=== PATIENT | female | born 1960 | race Caucasian/White ===

== ENCOUNTER 2017-01-27 22:22 | Inpatient (IN) | payer OTHER ==
[~2017-01-27] VITALS: Ht 160 cm; Wt 71.5 kg
[~2017-01-27 22:22] MED LIST: ADVAI250I PO; ALPR0.5T3 PO; DUONI INH; ECOT81TA2 PO; ENAL5 PO; FOLI1 PO; FURO20 PO; KCL20 PO; METO25 PO; THIA100T PO
[2017-01-27 22:29] VITALS: BP 150/79; PULSE 107; RESP 28; O2SAT 98
[2017-01-27] MEDS ORDERED: SODIUM CHLORIDE 0.9% FLUSH 10 ML FLUSH IVF PRN (22:30)
[2017-01-27 22:33] VITALS: TEMP 97.5
[2017-01-27 22:35] VITALS: O2SAT 99
[2017-01-27] MEDS: RESP: ALBUTEROL 2.5 MG/IPRATROPIUM 0.5 MG NEB (SCH) INH (22:41)
[2017-01-27 22:45] VITALS: O2SAT 99
[2017-01-27 23:00] LABS: AUTOMATED NEUTROPHIL # 4.5 TH/MM3 (1.8-7.7); BASOPHIL # 0.1 TH/MM3 (0-0.2); BASOPHIL % 0.8 % (0.0-2.0); EOSINOPHIL # 0.2 TH/MM3 (0-0.4); EOSINOPHIL % 1.2 % (0.0-4.0); HEMATOCRIT 37.5 % (35.0-46.0); LYMPH % 52.9 % (9.0-44.0); LYMPHOCYTE # 6.6 TH/MM3 (1.0-4.8); MEAN CELL VOLUME 99.3 FL (80.0-100.0); MEAN CORPUSCULAR HEMOGLOBIN 32.8 PG (27.0-34.0); NEUT % 36.1 % (16.0-70.0); PLATELET COUNT 284 TH/MM3 (150-450); RED BLOOD COUNT 3.78 MIL/MM3 (4.00-5.30); RED CELL DISTRIBUTION WIDTH 14.6 % (11.6-17.2); WHITE BLOOD COUNT 12.5 TH/MM3 (4.0-11.0)
[2017-01-27 23:03] LABS: HEMO FLAGS AUTO DIFF
--- NOTE | 2017-01-27 23:03 | RADRPT ---
EXAM DATE/TIME: 01/27/2017 22:39 [place] COMPARISON: No previous studies available for comparison. INDICATIONS : Severe shortness of breath with chest pain. MEDICAL HISTORY : Hypercholesterolemia. Chronic obstructive pulmonary disease. Cerebrovascular disease. NH ; htn SURGICAL HISTORY : Tonsillectomy. defibrillator ENCOUNTER: Initial ACUITY: 1 day PAIN SCORE: 8/10 LOCATION: Bilateral upper chest FINDINGS: Mild and fairly symmetric hazy infiltrates are seen of both lung bases with probable small pleural ef fusions. No pneumothorax. Heart size stable, upper limits of normal. Cardiac pacer/defibrillator agai n noted. CONCLUSION: Mild failure. Kip Pinto MD on January 27, 2017 at 23:01 Board Certified Radiologist. This report was verified electronically.
[2017-01-27 23:04] LABS: BLOOD GAS BASE EXCESS -5.6 mmol/L (-2-2); BLOOD GAS CARBOXYHEMOGLOBIN 3.4 % (0-4); BLOOD GAS HCO3 21 mmol/L (22-26); BLOOD GAS METHEMOGLOBIN 0.6 % (0-2); BLOOD GAS O2 HGB SATURATION 96 % (90-100); BLOOD GAS OXYGEN CONTENT 16.7 Vol % (12.0-20.0); BLOOD GAS PCO2 56 mmHg (38-42); BLOOD GAS PO2 291 mmHG (61-120); BLOOD GAS TOTAL HGB 11.9 G/DL (12.0-16.0); CRITICAL VALUE YES; OXYGEN DEVICE BiPAP; TEMP CORR TO 98.6
[2017-01-27 23:05] LABS: DRAW SITE RT RADIAL; FIO2 100 %; NUMBER OF ARTERIAL PUNCTURES 1; STAT YES; ULNAR PULSE PRESENT; VENT SETTINGS IPAP 12/EPAP+6
[2017-01-27] MEDS ORDERED: VANCOMYCIN INJ 1,250 MG in SODIUM CHLOR 0.9% 250 ML INJ 250 ML IV ONE (23:15)
[2017-01-27] MEDS ORDERED: PIPERACIL-TAZO 2.25 GM PREMIX 50 ML IV ONE (23:15)
[2017-01-27] MEDS ORDERED: ADVA250A INH (23:18)
[2017-01-27] MEDS ORDERED: FURO1TAB62 PO (23:18)
[2017-01-27] MEDS ORDERED: FOLI1TAB4 PO (23:18)
[2017-01-27] MEDS ORDERED: ALPR0.5T3 PO (23:18)
[2017-01-27] MEDS ORDERED: THIA100T PO (23:18)
[2017-01-27] MEDS ORDERED: POTA1TAB4 PO (23:18)
[2017-01-27] MEDS ORDERED: ENAL5TAB PO (23:18)
[2017-01-27] MEDS ORDERED: METO25TA3 PO (23:18)
[2017-01-27] MEDS ORDERED: ALBUAER3 INH (23:18)
[2017-01-27] MEDS ORDERED: ASPI81TA11 PO (23:18)
[2017-01-27 23:19] LABS: APTT (PATIENT) 24.5 SEC (24.3-30.1); INTERNATIONAL NORMALIZED RATIO 0.9 RATIO
[2017-01-27 23:20] LABS: ANION GAP 15 MEQ/L (5-15); AST (GOT) 44 U/L (15-37); BICARBONATE 22.8 MEQ/L (21.0-32.0); BLOOD UREA NITROGEN 14 MG/DL (7-18); CHLORIDE 93 MEQ/L (98-107); GLOMERULAR FILTRATION RATE 62 ML/MIN (>89); MAGNESIUM 4.1 MG/DL (1.5-2.5); POTASSIUM 3.2 MEQ/L (3.5-5.1); SODIUM (NA) 131 MEQ/L (136-145)
[2017-01-27 23:25] LABS: ALKALINE PHOSPHATASE 120 U/L (45-117); ALT (GPT) 29 U/L (10-53); CREATINE KINASE 104 U/L (26-192); TOTAL BILIRUBIN ADULT 0.3 MG/DL (0.2-1.0)
[2017-01-27 23:35] LABS: PLATELET ESTIMATE SMEAR NORMAL (NORMAL); PLATELET MORPHOLOGY NORMAL (NORMAL); SCAN/DIFF AUTO DIFF CONFIRMED
[2017-01-27 23:37] LABS: CKMB 1.4 NG/ML (0.5-3.6)
--- NOTE | 2017-01-27 23:47 | PD ---
HPI Chief Complaint: Respiratory Distress Time Seen by Provider: 22:30 Travel History International Travel<30 days: No Contact w/Intl Traveler<30days: No Traveled to known affect area: No History of Present Illness HPI 56-year-old female with a history of COPD CHF arrives by EMS on a CPAP machine. She's had cough cold and congestion for the past several days. EMS was activated due to dyspnea. She was found to have an O2 sat of 74% on room air at home. They applied albuterol at home and increase the O2 sat to the 80s. She received 0.3 mg of subcutaneous epinephrine en route as well as a milligrams of Lasix 0.4 mg of sublingual nitroglycerin and 2 mg of magnesium. She also received 125 mg slight Medrol. O2 sat increased to the 90s. In the ER patient is quite dyspneic limiting the initial history. PFSH Past Medical History Arthritis: Yes Asthma: No Autoimmune Disease: No Anxiety: No Depression: Yes Heart Rhythm Problems: No Cancer: No Cardiac Catheterization: Yes Cardiovascular Problems: Yes (SC, STENT, CHF, ) High Cholesterol: Yes Chest Pain: Yes Congestive Heart Failure: Yes COPD: Yes Cerebrovascular Accident: Yes Coronary Artery Disease: Yes Diabetes: No Diminished Hearing: No Endocrine: No GERD: No Glaucoma: No Genitourinary: No Headaches: No Hepatitis: No Hiatal Hernia: No Hypertension: Yes Immune Disorder: No Implanted Vascular Access Dvce: No Kidney Stones: No Musculoskeletal: Yes (BILATERAL CARPAL TUNNEL SYNDROME) Neurologic: Yes Psychiatric: No Reproductive: No Respiratory: Yes (COPD) Myocardial Infarction: Yes Renal Failure: No Seizures: No Sleep Apnea: Yes (questionable) Thyroid Disease: No Ulcer: No PNEUMOCCOCAL Vaccine (Year): 3 Menopausal: Yes Past Surgical History Abdominal Surgery: No AICD: Yes Body Medical Devices: CARDIAC STENTS Cardiac Surgery: Yes (stents x 1) Coronary Artery Bypass Graft: No Coronary Stent: Yes (x1) Ear Surgery: No Endocrine Surgery: No Eye Surgery: No Genitourinary Surgery: No Gynecologic Surgery: No Oral Surgery: No Pacemaker: Yes Thoracic Surgery: No Tonsillectomy: Yes Other Surgery: Yes (ICD PLACEMENT 2015) Social History Alcohol Use: Yes (DAILY) Tobacco Use: Yes (1 PPD) Substance Use: No Allergies-Medications (Allergen,Severity, Reaction): Coded Allergies: No Known Allergies (Verified , 01/27/17) Reported Meds & Prescriptions Reported Meds & Active Scripts Active Reported Alprazolam 0.5 Mg Tab 0.5 Mg PO BID PRN Aspirin EC (Aspirin) 81 Mg Tabdr 81 Mg PO DAILY Enalapril (Enalapril Maleate) 5 Mg Tab 5 Mg PO DAILY Advair Diskus Inh (Fluticasone-Salmeterol Inh) 250-50 Mcg/Blist Aer 1 Puff INH BID Rinse mouth after use. Folate (Folic Acid) 1 Mg Tab 1 Mg PO DAILY Lasix (Furosemide) 20 Mg Tab 20 Mg PO BID Metoprolol Tartrate 25 Mg Tab 12.5 Mg PO BID K-Tab (Potassium Chloride) 20 Meq Tab 20 Meq PO DAILY Thiamine (Thiamine HCl) 100 Mg Tab 100 Mg PO DAILY Proair Hfa 8.5 GM Inh (Albuterol Sulfate) 90 Mcg/Act Aer 2 Puff INH Q4-6H PRN 108 mcg/actuation Review of Systems Except as stated in HPI: all other systems reviewed are Neg General / Constitutional: No: Fever, Chills Cardiovascular: Positive: Tachycardia Respiratory: Positive: Cough, Shortness of Breath, Wheezing Physical Exam Narrative GENERAL: 56-year-old female marked respiratory distress SKIN: Focused skin assessment warm/dry. HEAD: Atraumatic. Normocephalic. EYES: Pupils equal and round. No scleral icterus. No injection or drainage. ENT: No nasal bleeding or discharge. Mucous membranes pink and moist. NECK: Trachea midline. No JVD. CARDIOVASCULAR: Tachycardia. Regular rhythm. RESPIRATORY: Bilateral wheezing. Tachypnea. GASTROINTESTINAL: Abdomen soft, non-tender, nondistended. Hepatic and splenic margins not palpable. MUSCULOSKELETAL: No obvious deformities. No clubbing. No cyanosis. Trace edema. NEUROLOGICAL: Awake and alert. No obvious cranial nerve deficits. Motor grossly within normal limits. Normal speech. PSYCHIATRIC: Appropriate mood and affect; insight and judgment normal. Data Data Last Documented VS Vital Signs Date Time Temp Pulse Resp B/P Pulse Ox O2 Delivery O2 Flow Rate FiO2 01/28/17 00:20 95 35 01/27/17 22:35 CPAP 01/27/17 22:33 107 28 01/27/17 22:33 97.5 01/27/17 22:29 150/79 VS reviewed Orders Complete Blood Count With Diff (01/27/17 22:30) Comprehensive Metabolic Panel (01/27/17 22:30) B-Type Natriuretic Peptide (01/27/17 22:30) Act Partial Throm Time (Ptt) (01/27/17 22:30) Prothrombin Time / Inr (Pt) (01/27/17 22:30) Magnesium (Mg) (01/27/17 22:30) Ckmb (Isoenzyme) Profile (01/27/17 22:30) Troponin I (01/27/17 22:30) Arterial Blood Gas (Abg) (01/27/17 22:30) Urinalysis - C+S If Indicated (01/27/17 22:30) Iv Access Insert/Monitor (01/27/17 22:30) Electrocardiogram (01/27/17 22:30) Ecg Monitoring (01/27/17 22:30) Oximetry (01/27/17 22:30) Oxygen Administration (01/27/17 22:30) Chest, Single Ap (01/27/17 22:30) Urinary Catheter Insert/Apply (01/27/17 22:30) Sodium Chloride 0.9% Flush (Ns Flush) (01/27/17 22:30) Albuterol-Ipratropium Neb (Duoneb Neb) (01/27/17 22:30) Resp Bipap / Cpap Non Invas Vt (01/27/17 22:30) Piperacil-Tazo 2.25 Gm Premix (Zosyn 2.2 (01/27/17 23:15) Vancomycin Inj (Vancomycin Inj) (01/27/17 23:15) Blood Culture (01/27/17 23:06) CKMB (01/27/17 22:40) CKMB% (01/27/17 22:40) Admit Order (Ed Use Only) (01/28/17 00:20) Labs Laboratory Tests Test 01/27/17 01/27/17 01/27/17 22:40 22:57 23:45 White Blood Count 12.5 TH/MM3 Red Blood Count 3.78 MIL/MM3 Hemoglobin 12.4 GM/DL Hematocrit 37.5 % Mean Corpuscular Volume 99.3 FL Mean Corpuscular Hemoglobin 32.8 PG Mean Corpuscular Hemoglobin 33.0 % Concent Red Cell Distribution Width 14.6 % Platelet Count 284 TH/MM3 Mean Platelet Volume 8.7 FL Neutrophils (%) (Auto) 36.1 % Lymphocytes (%) (Auto) 52.9 % Monocytes (%) (Auto) 9.0 % Eosinophils (%) (Auto) 1.2 % Basophils (%) (Auto) 0.8 % Neutrophils # (Auto) 4.5 TH/MM3 Lymphocytes # (Auto) 6.6 TH/MM3 Monocytes # (Auto) 1.1 TH/MM3 Eosinophils # (Auto) 0.2 TH/MM3 Basophils # (Auto) 0.1 TH/MM3 CBC Comment AUTO DIFF Differential Comment AUTO DIFF CONFIRMED Platelet Estimate NORMAL Platelet Morphology Comment NORMAL Prothrombin Time 10.0 SEC Prothromb Time International 0.9 RATIO Ratio Activated Partial 24.5 SEC Thromboplast Time Sodium Level 131 MEQ/L Potassium Level 3.2 MEQ/L Chloride Level 93 MEQ/L Carbon Dioxide Level 22.8 MEQ/L Anion Gap 15 MEQ/L Blood Urea Nitrogen 14 MG/DL Creatinine 0.93 MG/DL Estimat Glomerular Filtration 62 ML/MIN Rate Random Glucose 278 MG/DL Calcium Level 8.0 MG/DL Magnesium Level 4.1 MG/DL Total Bilirubin 0.3 MG/DL Aspartate Amino Transf 44 U/L (AST/SGOT) Alanine Aminotransferase 29 U/L (ALT/SGPT) Alkaline Phosphatase 120 U/L Total Creatine Kinase 104 U/L Creatine Kinase MB 1.4 NG/ML Troponin I LESS THAN 0.02 NG/ML B-Type Natriuretic Peptide 198 PG/ML Total Protein 7.1 GM/DL Albumin 3.5 GM/DL Blood Gas Puncture Site RT RADIAL Blood Gas Patient Temperature 98.6 Blood Gas HCO3 21 mmol/L Blood Gas Base Excess -5.6 mmol/L Blood Gas Oxygen Saturation 96 % Arterial Blood pH 7.20 Arterial Blood Partial 56 mmHg Pressure CO2 Arterial Blood Partial 291 mmHG Pressure O2 Arterial Blood Oxygen Content 16.7 Vol % Arterial Blood 3.4 % Carboxyhemoglobin Arterial Blood Methemoglobin 0.6 % Blood Gas Hemoglobin 11.9 G/DL Oxygen Delivery Device BiPAP Blood Gas Ventilator Setting IPAP 12/EPAP+6 Blood Gas Inspired Oxygen 100 % Urine Color LIGHT-YELLOW Urine Turbidity CLEAR Urine pH 5.0 Urine Specific [place] 1.005 Urine Protein NEG mg/dL Urine Glucose (UA) 70 mg/dL Urine Ketones NEG mg/dL Urine Occult Blood NEG Urine Nitrite NEG Urine Bilirubin NEG Urine Urobilinogen LESS THAN 2.0 MG/DL Urine Leukocyte Esterase NEG Urine RBC 1 /hpf Urine Squamous Epithelial <1 /hpf Cells Urine Mucus FEW /lpf Microscopic Urinalysis Comment CULT NOT INDICATED MDM Medical Decision Making Medical Screen Exam Complete: Yes Emergency Medical Condition: Yes Medical Record Reviewed: Yes Differential Diagnosis NSTEMI, unstable angina, coronary vasospasm, PE, PTX, aortic dissection, pericarditis, myocarditis, endocarditis, PNA, esophageal disease, aneurysm, musculoskeletal etiologies, anxiety, cocaine/sympathomimetic abuse Narrative Course CBC & BMP Diagram 01/27/17 22:40 AST 44 BNP 198 Tn < 0.02 EKG: Sinus, rate 110, no st elevations INR 1.0 AB./56/21 BE -5.6 PaO2 291 Last 24 hours Impressions Chest X-Ray 01/27/170 Signed Impressions: Service Date/Time: Friday, January 27, 2017 22:39 - CONCLUSION: Mild failure. Kip Pinto MD Patient reassessed at 12:20 AM and she is speaking full sentences. We will DC BiPAP. The patient will be admitted for COPD with or without a mild failure. Zosyn and vancomycin started. Blood cultures drawn. Discussed with Dr. Garces. Diagnosis Primary Impression: CHF (congestive heart failure) Qualified Code: I50.9 - Congestive heart failure, unspecified congestive heart failure chronicity, unspecified congestive heart failure type Additional Impression: COPD (chronic obstructive pulmonary disease) Qualified Code: J44.9 - Chronic obstructive pulmonary disease, unspecified COPD type Admitting Information Admitting Physician Requests: Admit Deejay Thacker MD January 27, 2017 23:47
[2017-01-27 23:58] LABS: BLOOD, URINE NEG (NEG); COMMENT (UR) CULT NOT INDICATED; CULTURE IF INDICATED CULT NOT INDICATED; GLUCOSE,URINE 70 mg/dL (NEG); KETONE, URINE NEG (NEG); MUCUS URINE FEW /lpf (OCC); NITRITE,URINE NEG (NEG); SQUAMOUS EPITHELIAL CELL URINE <1 /hpf (0-5); URINE COLOR LIGHT-YELLOW (YELLW/STRAW)
[2017-01-28] VITALS (34 sets, daily range): BP systolic 110–133; BP diastolic 63–84; PULSE 76–112; RESP 18–20; TEMP 97.5–98; O2SAT 93–98
[2017-01-28] MEDS ORDERED: HALOPERIDOL LACTATE 5 MG/ML AMP IM PRN (00:45)
[2017-01-28] MEDS ORDERED: LORazepam 2 MG TAB PO PRN (00:45)
[2017-01-28] MEDS ORDERED: ONDANSETRON HCL 4 MG/2 ML VIAL IVP PRN (00:45)
[2017-01-28] MEDS ORDERED: RESP: ALBUTEROL 2.5 MG/IPRATROPIUM 0.5 MG NEB (PRN) NEB (00:45)
[2017-01-28] MEDS ORDERED: Vancomycin Consult Pharmacy 1 EA OTHER SCH (00:45)
[2017-01-28] MEDS ORDERED: FLUMAZENIL 0.5 MG/5 ML VIAL IV PUSH PRN (00:45)
[2017-01-28] MEDS ORDERED: ACETAMINOPHEN 325 MG TAB PO PRN (00:45)
[2017-01-28] MEDS ORDERED: BISACODYL 10 MG SUPP RECTAL PRN (00:45)
[2017-01-28] MEDS ORDERED: GLUCAGON 1 MG/ML VIAL OTHER PRN (00:45)
[2017-01-28] MEDS ORDERED: DEXTROSE 50% IN WATER 50 ML VIAL(D50) IV PRN (00:45)
[2017-01-28] MEDS ORDERED: LORazepam 1 MG TAB PO PRN (00:45)
[2017-01-28] MEDS ORDERED: ALPRAZolam 0.5 MG TAB PO PRN (00:45)
[2017-01-28] MEDS ORDERED: SODIUM CHLORIDE 0.9% FLUSH 10 ML FLUSH IV FLUSH PRN (00:45)
[2017-01-28] MEDS ORDERED: LORazepam 2 MG/ML VIAL IV PUSH PRN ×4 (00:45)
[2017-01-28] MEDS ORDERED: POTASSIUM CHLORIDE 20 MEQ CONTROLLED RELEASE TAB PO ONE (01:00)
--- NOTE | 2017-01-28 01:16 | HHI.HP ---
[facility] Primary Care Physician Admission Diagnosis Resp Distress, COPD, CHF Diagnoses: (1) COPD (chronic obstructive pulmonary disease) Diagnosis: Principal (2) Hypoxia Diagnosis: Principal (3) PNA (pneumonia) Diagnosis: Principal (4) CHF (congestive heart failure) Diagnosis: Principal (5) Hypokalemia Diagnosis: Principal (6) Hyperglycemia Diagnosis: Principal (7) Alcohol abuse Diagnosis: Principal (8) Tobacco abuse Diagnosis: Principal Travel History International Travel<30 Days: No Contact w/Intl Traveler <30 Da: No Traveled to Known Affected Are: No History of Present Illness This is a 56-year-old female with a PMH of HTN, COPD, CVA, CAD, CHF (Echo w/ EF 40-45%), Alcohol Abuse and Tobacco Abuse who was brought to the ER by EMS secondary to SOB. Upon EMS arrival, pt noted to have O2 sat 74% on RA, placed on CPAP by EMS, s/p DuoNeb, Solu-Medrol and Lasix IV en route. On arrival, BP 150/79, HR 107, RR 28, O2 sat 98% on CPAP, Afebrile. WBC 12.5. J+ 3.2. BS 278. BNP 198. Trop negative. U/a negative. CXR w/ mild failure, possible underlying PNA. S/p Blood Cultures, Vanc/Zosyn in ER. Currently weaning off BIPAP. Review of Systems Except as stated in HPI: all other systems reviewed are Neg ROS: 14 point review of systems otherwise negative. Past Family Social History Past Medical History PMH: HTN, COPD, CVA, CAD, CHF (Echo 01/12/15 w/ EF 40-45%), Alcohol Abuse and Tobacco Abuse Past Surgical History PAST SURGICAL HISTORY: AICD, Cardiac Stent, Tonsillectomy Allergies: Coded Allergies: No Known Allergies (Verified , 01/27/17) Family History PAST FAMILY HISTORY: Reviewed. No h/o DM or CAD Social History PAST SOCIAL HISTORY: Drinks daily. Smokes 1ppd. Negative for drugs. Physical Exam Vital Signs Vital Signs Date Time Temp Pulse Resp B/P Pulse Ox O2 Delivery O2 Flow Rate FiO2 01/28/17 00:43 94 18 118/75 95 BiPAP 35 01/28/17 00:20 95 35 01/27/17 22:45 99 100 01/27/17 22:35 99 CPAP 01/27/17 22:35 99 CPAP 01/27/17 22:33 107 28 99 CPAP 01/27/17 22:33 97.5 01/27/17 22:29 107 28 150/79 98 Physical Exam PE: GENERAL: Middle-aged white female in no acute distress, currently on BIPAP. HEENT: PERRLA, EOMI. No scleral icterus or conjunctival pallor. No lid lag or facial droop. CARDIOVASCULAR: Regular rate and rhythm. No obvious murmurs to auscultation. No chest tenderness to palpation. RESPIRATORY: No obvious rhonchi. Occasional wheezing. Clear to auscultation. Breath sounds equal bilaterally. GASTROINTESTINAL: Abdomen soft, non-tender, nondistended. BS normal. MUSCULOSKELETAL: Extremities without clubbing, cyanosis, or edema. No obvious deformities. NEUROLOGICAL: Awake, alert and oriented x4. No focal neurologic deficits. Moving both upper and lower extremities spontaneously. Laboratory Laboratory Tests Test 01/27/17 01/27/17 01/27/17 22:40 22:57 23:45 White Blood Count 12.5 Red Blood Count 3.78 Hemoglobin 12.4 Hematocrit 37.5 Mean Corpuscular Volume 99.3 Mean Corpuscular Hemoglobin 32.8 Mean Corpuscular Hemoglobin 33.0 Concent Red Cell Distribution Width 14.6 Platelet Count 284 Mean Platelet Volume 8.7 Neutrophils (%) (Auto) 36.1 Lymphocytes (%) (Auto) 52.9 Monocytes (%) (Auto) 9.0 Eosinophils (%) (Auto) 1.2 Basophils (%) (Auto) 0.8 Neutrophils # (Auto) 4.5 Lymphocytes # (Auto) 6.6 Monocytes # (Auto) 1.1 Eosinophils # (Auto) 0.2 Basophils # (Auto) 0.1 CBC Comment AUTO DIFF Differential Comment AUTO DIFF CONFIRMED Platelet Estimate NORMAL Platelet Morphology Comment NORMAL Prothrombin Time 10.0 Prothromb Time International 0.9 Ratio Activated Partial 24.5 Thromboplast Time Sodium Level 131 Potassium Level 3.2 Chloride Level 93 Carbon Dioxide Level 22.8 Anion Gap 15 Blood Urea Nitrogen 14 Creatinine 0.93 Estimat Glomerular Filtration 62 Rate Random Glucose 278 Calcium Level 8.0 Magnesium Level 4.1 Total Bilirubin 0.3 Aspartate Amino Transf 44 (AST/SGOT) Alanine Aminotransferase 29 (ALT/SGPT) Alkaline Phosphatase 120 Total Creatine Kinase 104 Creatine Kinase MB 1.4 Troponin I LESS THAN 0.02 B-Type Natriuretic Peptide 198 Total Protein 7.1 Albumin 3.5 Blood Gas Puncture Site RT RADIAL Blood Gas Patient Temperature 98.6 Blood Gas HCO3 21 Blood Gas Base Excess -5.6 Blood Gas Oxygen Saturation 96 Arterial Blood pH 7.20 Arterial Blood Partial 56 Pressure CO2 Arterial Blood Partial 291 Pressure O2 Arterial Blood Oxygen Content 16.7 Arterial Blood 3.4 Carboxyhemoglobin Arterial Blood Methemoglobin 0.6 Blood Gas Hemoglobin 11.9 Oxygen Delivery Device BiPAP Blood Gas Ventilator Setting IPAP 12/EPAP+6 Blood Gas Inspired Oxygen 100 Urine Color LIGHT-YELLOW Urine Turbidity CLEAR Urine pH 5.0 Urine Specific [place] 1.005 Urine Protein NEG Urine Glucose (UA) 70 Urine Ketones NEG Urine Occult Blood NEG Urine Nitrite NEG Urine Bilirubin NEG Urine Urobilinogen LESS THAN 2.0 Urine Leukocyte Esterase NEG Urine RBC 1 Urine Squamous Epithelial <1 Cells Urine Mucus FEW Microscopic Urinalysis Comment CULT NOT INDICATED Date/Time Procedure Status Source Growth 01/27/17 23:45 Aerobic Blood Culture Received Blood Peripheral Pending 01/27/17 23:45 Anaerobic Blood Culture Received Blood Peripheral Pending Result Diagram: 01/27/17223901/27/172239 Assessment and Plan Problem List: (1) COPD (chronic obstructive pulmonary disease) ICD Code: J44.9 Status: Chronic (2) CHF (congestive heart failure) ICD Code: I50.9 Status: Acute (3) PNA (pneumonia) ICD Code: J18.9 Status: Acute (4) Hypoxia ICD Code: R09.02 Status: Acute (5) Hyperglycemia ICD Code: R73.9 Status: Acute (6) Hypokalemia ICD Code: E87.6 Status: Acute (7) Alcohol abuse ICD Code: F10.10 Status: Acute (8) Tobacco abuse ICD Code: Z72.0 Status: Acute Assessment and Plan A/P: 1. COPD: Chronic Respiratory Failure w/ Acute Exacerbation and associated hypoxia, O2 sat 74% upon EMS arrival, +wheezing on exam. Currently on BIPAP, wean as tolerated. S/p Solu-Medrol, DuoNeb w/ some improvement. Continue Solu- Medrol, DuoNeb q4h and q2h prn, Symbicort, Mucinex. 2. CHF: Acute on Chronic, Systolic. Echo 01/12/15 w/ EF 40-45%, h/o AICD placement. BNP 198, CXR w/ mild failure, images reviewed by me. S/p Lasix by EMS, monitor I/O, continue home diuresis. 3. PNA: +cold/congestion w/ non-productive cough, WBC 12.5, CXR w/ mild failure however possible underlying infiltrates, images reviewed by me. S/p Blood Cultures, Vanc/Zosyn in ER, will follow up cultures, continue IV Abx. 4. Hypoxia: Multifactorial-secondary to COPD, CHF and PNA. Currently on BIPAP , will wean as tolerated. 5. Hyperglycemia: No h/o DM, BS 278 on arrival, last Hgb A1c 5.1 on 01/09/15. Sliding scale w/ Accu-Cheks, repeat Hgb A1c. 6. Hypokalemia: K+ 3.2, will replace and recheck in am. 7. Alcohol Abuse: Drinks daily, on Folic Acid/Thiamine at home. Start CIWA, Seizure Precautions, MVT/Thiamine/Folate replacement. 8. Tobacco Abuse: Pt counselled. NicoDerm prn if needed. 9. DVT Prophylaxis: SCD/Teds. 10. Social work for d/c planning as needed. 11. Case discussed w/ ER physician at length. Physician Certification 2 Midnight Certification Type: Admission for Inpatient Services Order for Inpatient Services The services are ordered in accordance with Medicare regulations or non- Medicare payer requirements, as applicable. In the case of services not specified as inpatient-only, they are appropriately provided as inpatient services in accordance with the 2-midnight benchmark. Estimated LOS (days): 2 days is the estimated time the patient will need to remain in the hospital, assuming treatment plan goals are met and no additional complications. Post-Hospital Plan: Not yet determined Jemma Garces MD January 28, 2017 01:16
[2017-01-28] MEDS ORDERED: PIPERACIL-TAZO 3.375 GM PREMIX 50 ML IV SCH (05:00)
[2017-01-28] MEDS: methylPREDNISolone SOD SUCC 40 MG/1 ML VIAL IV PUSH SCH ×3 (05:50→17:51)
[2017-01-28] MEDS: PIPERACIL-TAZO 3.375 GM PREMIX 50 ML IV SCH ×3 (05:51→17:51)
[2017-01-28] MEDS: INSULIN ASPART SUPPLEMENTAL SCALE SQ SCH ×4 (06:21→20:43)
[2017-01-28 07:55] LABS: AUTOMATED NEUTROPHIL # 3.2 TH/MM3 (1.8-7.7); BASOPHIL % 0.1 % (0.0-2.0); EOSINOPHIL % 0.1 % (0.0-4.0); HEMATOCRIT 35.6 % (35.0-46.0); HEMO FLAGS DIFF FINAL; LYMPHOCYTE # 0.6 TH/MM3 (1.0-4.8); MEAN CELL VOLUME 95.9 FL (80.0-100.0); MEAN CORPUSCULAR HEMOGLOBIN 32.5 PG (27.0-34.0); MEAN CORPUSCULAR HGB CONC 33.9 % (32.0-36.0); NEUT % 81.8 % (16.0-70.0); PLATELET COUNT 179 TH/MM3 (150-450); RED BLOOD COUNT 3.71 MIL/MM3 (4.00-5.30); WHITE BLOOD COUNT 3.9 TH/MM3 (4.0-11.0)
[2017-01-28 08:13] LABS: ALKALINE PHOSPHATASE 108 U/L (45-117); ALT (GPT) 28 U/L (10-53); ANION GAP 13 MEQ/L (5-15); AST (GOT) 27 U/L (15-37); BICARBONATE 25.3 MEQ/L (21.0-32.0); BLOOD UREA NITROGEN 18 MG/DL (7-18); CHLORIDE 100 MEQ/L (98-107); GLOMERULAR FILTRATION RATE 75 ML/MIN (>89); POTASSIUM 3.7 MEQ/L (3.5-5.1); SODIUM (NA) 138 MEQ/L (136-145); TOTAL BILIRUBIN ADULT 0.4 MG/DL (0.2-1.0)
[2017-01-28] MEDS: RESP: ALBUTEROL 2.5 MG/IPRATROPIUM 0.5 MG NEB (SCH) NEB ×4 (08:29→19:37)
[2017-01-28] MEDS: MULTIVITAMINS/MINERALS THERAPEUTIC TAB PO SCH (08:55)
[2017-01-28] MEDS: ASPIRIN EC 81 MG TABEC PO SCH (08:55)
[2017-01-28] MEDS: FOLIC ACID 1 MG TAB PO SCH (08:55)
[2017-01-28] MEDS: THIAMINE HCL 100 MG TAB PO SCH (08:55)
[2017-01-28] MEDS: guaiFENesin E.R. 600 MG TAB PO SCH ×2 (08:55→20:40)
[2017-01-28] MEDS: SODIUM CHLORIDE 0.9% FLUSH 10 ML FLUSH IV FLUSH SCH ×2 (08:55→20:40)
[2017-01-28] MEDS: METOPROLOL TARTRATE 25 MG TAB PO SCH ×2 (08:56→20:40)
[2017-01-28] MEDS: FUROSEMIDE 20 MG TAB PO SCH ×2 (08:56→20:40)
[2017-01-28] MEDS: BUDESONIDE-FORMOTEROL 160/4.5 MCG INHALER INH SCH ×2 (09:22→20:45)
[2017-01-28 13:33] LABS: HEMOGLOBIN A1a 1.1 %; HEMOGLOBIN A1b 1.3 %; HEMOGLOBIN Ao 86.1 %; HEMOGLOBIN LA1C 2.4 %
--- NOTE | 2017-01-28 14:03 | HHI.PR ---
Subjective Remarks Late entry. Patient seen at ~0800 today. Still on BiPAP. Complaining of some dyspnea, but improving. No chest pain. Objective Vitals Vital Signs Date Time Temp Pulse Resp B/P Pulse Ox O2 Delivery O2 Flow Rate FiO2 01/28/17 12:00 96 01/28/17 11:45 97.7 98 19 110/64 97 01/28/17 11:45 97 Nasal Cannula 4.00 01/28/17 11:00 95 01/28/17 10:00 94 01/28/17 09:00 100 01/28/17 08:50 97 Nasal Cannula 4.00 01/28/17 08:26 95 35 01/28/17 08:15 96 Bi-Pap 35 01/28/17 08:15 96 Bi-Pap 35 01/28/17 08:15 98.0 102 19 131/81 96 01/28/17 08:00 94 01/28/17 07:00 89 01/28/17 06:43 96 Bi-Pap 35 01/28/17 06:00 90 01/28/17 05:00 84 01/28/17 04:18 85 01/28/17 04:00 84 01/28/17 03:45 95 35 01/28/17 03:19 97.5 96 128/84 93 01/28/17 03:00 85 01/28/17 02:49 84 22 116/79 96 Nasal Cannula 4 01/28/17 00:43 94 18 118/75 95 BiPAP 35 01/28/17 00:20 95 35 01/27/17 22:45 99 100 01/27/17 22:35 99 CPAP 01/27/17 22:35 99 CPAP 01/27/17 22:33 107 28 99 CPAP 01/27/17 22:33 97.5 01/27/17 22:29 107 28 150/79 98 I/O 01/27/17 01/27/17 01/27/17 01/28/17 01/28/17 01/28/17 07:00 15:00 23:00 07:00 15:00 23:00 Intake Total 590 ml Output Total 2300 ml Balance -1710 ml Intake Oral 240 ml IV Total 350 ml Output Urine Total 2300 ml Result Diagram: 01/28/1731 01/28/17730 Imaging Last Impressions Chest X-Ray 01/27/172229 Signed Impressions: Service Date/Time: Friday, January 27, 2017 22:39 - CONCLUSION: Mild failure. Kip Pinto MD Objective Remarks General: No acute distress. On BiPAP Heart: Regular rate and rhythm. No murmur. Lungs: Scattered wheeze. Abdomen: Soft, nontender, nondistended. Extremities: No lower extremity edema. Psych: Alert and oriented. Procedures None Urinary Catheter: No Vascular Central Line Catheter: No A/P Problem List: (1) CHF (congestive heart failure) ICD Code: I50.9 Status: Chronic (2) PNA (pneumonia) ICD Code: J18.9 Status: Acute (3) Hypoxia ICD Code: R09.02 Status: Acute (4) Hyperglycemia ICD Code: R73.9 Status: Acute (5) Hypokalemia ICD Code: E87.6 Status: Acute (6) Alcohol abuse ICD Code: F10.10 Status: Acute (7) Tobacco abuse ICD Code: Z72.0 Status: Acute (8) COPD exacerbation ICD Code: J44.1 Status: Acute Assessment and Plan 1. COPD, chronic respiratory failure with acute exacerbation: Has been requiring BiPAP. Wean off as tolerated. States she is not on home oxygen. Continue steroids, bronchodilators. 2. Acute exacerbation of chronic systolic congestive heart failure: Echocardiogram 2 years ago showed ejection fraction 40-45%. Patient has AICD in place. Chest x-ray shows findings consistent with mild CHF. Continue diuresis. Monitor intake/output. 3. Pneumonia: Continue antibiotics. Follow cultures. 4. Hypoxia: Multifactorial. Secondary to COPD, CHF, pneumonia. 5. Hyperglycemia: Patient denies history of diabetes. Repeat hemoglobin A1c. Monitor Accu-Cheks and cover with sliding scale insulin. 6. Hypokalemia: Supplement potassium and monitor labs. 7. Alcohol abuse: Continue full gas, thiamine, multivitamin. [place] protocol. Seizure/withdrawal precautions. 8. Tobacco abuse: Counseled quit smoking. 9. DVT prophylaxis: SCDs, E[facility]. Problem Qualifiers (1) CHF (congestive heart failure): Qualified Code: I50.23 - Acute on chronic systolic congestive heart failure Ney Rey MD January 28, 2017 14:03
--- NOTE | 2017-01-28 16:11 | EKG ---
Date Performed: 01/27/2017 Time Performed: 22:39:42 PTAGE: 56 years EKG: SINUS TACHYCARDIA LOW QRS VOLTAGE IN PRECORDIAL LEADS POSSIBLE RIGHT VENTRICULAR CONDUCTION DELAY ABNORMAL RHYTHM ECG PREVIOUS TRACING : 08/03/2015 09.16 Compared to prior tracing no significant change DOCTOR: Ellen Hi Interpretating Date/Time 01/28/2017 16:09:49
[2017-01-28] MEDS: VANCOMYCIN INJ 1,250 MG in SODIUM CHLOR 0.9% 250 ML INJ 250 ML IV SCH (17:52)
[2017-01-28] MEDS ORDERED: NITROGLYCERIN 0.4 MG SL 25 TABS/BTL SL PRN (22:45)
[2017-01-28 23:47] LABS: CREATINE KINASE 51 U/L (26-192)
[2017-01-29] VITALS (30 sets, daily range): BP systolic 106–140; BP diastolic 72–84; PULSE 77–104; RESP 15–22; TEMP 97.5–98.2; O2SAT 94–98
[2017-01-29] MEDS: methylPREDNISolone SOD SUCC 40 MG/1 ML VIAL IV PUSH SCH ×5 (00:20→23:32)
[2017-01-29] MEDS: PIPERACIL-TAZO 3.375 GM PREMIX 50 ML IV SCH ×4 (00:20→23:32)
[2017-01-29] MEDS: INSULIN ASPART SUPPLEMENTAL SCALE SQ SCH ×4 (06:30→20:49)
[2017-01-29] MEDS: RESP: ALBUTEROL 2.5 MG/IPRATROPIUM 0.5 MG NEB (SCH) NEB ×4 (07:41→20:42)
--- NOTE | 2017-01-29 08:29 | HHI.PR ---
Subjective Remarks Follow up chest pain, dyspnea. Patient has been having intermittent chest pressure that starts on the left side and radiates to the right chest. She gets tachycardia and dyspnea with these episodes. She states that she occasionally has similar episodes at home and takes Xanax. She sees Dr. Mcghee for cardiology and Dr. Grubbs for pulmonology. Objective Vitals Vital Signs Date Time Temp Pulse Resp B/P Pulse Ox O2 Delivery O2 Flow Rate FiO2 01/29/17 06:23 94 01/29/17 05:34 94 35 01/29/17 05:00 98 01/29/17 04:34 85 01/29/17 03:40 103 01/29/17 03:25 94 Bi-Pap 35 01/29/17 03:25 97.5 98 15 113/73 94 01/29/17 02:16 87 01/29/17 01:09 94 01/29/17 00:37 101 01/28/17 23:10 98 01/28/17 23:10 98.0 103 18 129/73 98 01/28/17 23:10 98 Bi-Pap 35 01/28/17 22:33 98 35 01/28/17 22:20 98.0 110 20 124/63 93 01/28/17 22:00 106 01/28/17 21:00 112 01/28/17 20:17 97.9 103 18 129/73 98 01/28/17 20:17 106 01/28/17 20:17 98 Nasal Cannula 3.00 01/28/17 19:00 104 01/28/17 18:00 102 01/28/17 17:00 106 01/28/17 16:08 110 01/28/17 16:00 110 01/28/17 15:21 97.7 105 19 133/80 97 01/28/17 15:21 97 Nasal Cannula 4.00 01/28/17 15:00 102 01/28/17 14:00 104 01/28/17 13:00 106 01/28/17 12:00 96 01/28/17 11:45 97.7 98 19 110/64 97 01/28/17 11:45 97 Nasal Cannula 4.00 01/28/17 11:00 95 01/28/17 10:00 94 01/28/17 09:00 100 01/28/17 08:50 97 Nasal Cannula 4.00 01/28/17 08:26 95 35 01/28/17 08:15 96 Bi-Pap 35 01/28/17 08:15 96 Bi-Pap 35 01/28/17 08:15 98.0 102 19 131/81 96 I/O 01/28/17 01/28/17 01/28/17 01/29/17 01/29/17 01/29/17 07:00 15:00 23:00 07:00 15:00 23:00 Intake Total 590 ml 770 ml 1338 ml Output Total 2300 ml 550 ml 1300 ml Balance -1710 ml 220 ml 38 ml Intake Oral 240 ml 720 ml 955 ml IV Total 350 ml 50 ml 383 ml Output Urine Total 2300 ml 550 ml 1300 ml Result Diagram: 01/28/17 0731 01/28/17 0731 Imaging Last Impressions Chest X-Ray 01/27/172229 Signed Impressions: Service Date/Time: Friday, January 27, 2017 22:39 - CONCLUSION: Mild failure. Kip Pinto MD Objective Remarks General: No acute distress. Heart: Regular rate and rhythm. No murmur. Lungs: Scattered rhonchi. Abdomen: Soft, nontender, nondistended. Extremities: No lower extremity edema. SCDs. Psych: Alert and oriented. Procedures None Urinary Catheter: No Vascular Central Line Catheter: No A/P Problem List: (1) CHF (congestive heart failure) ICD Code: I50.9 Status: Chronic (2) PNA (pneumonia) ICD Code: J18.9 Status: Acute (3) Hypoxia ICD Code: R09.02 Status: Acute (4) Hyperglycemia ICD Code: R73.9 Status: Acute (5) Hypokalemia ICD Code: E87.6 Status: Acute (6) Alcohol abuse ICD Code: F10.10 Status: Acute (7) Tobacco abuse ICD Code: Z72.0 Status: Acute (8) COPD exacerbation ICD Code: J44.1 Status: Acute Assessment and Plan 1. COPD, chronic respiratory failure with acute exacerbation: Has been requiring BiPAP. Wean off as tolerated. States she is not on home oxygen. Continue steroids, bronchodilators. Consult patient's orthotics prosthetics technician. 2. Acute exacerbation of chronic systolic congestive heart failure: Echocardiogram 2 years ago showed ejection fraction 40-45%. Patient has AICD in place. Chest x-ray shows findings consistent with mild CHF. Continue diuresis. Monitor intake/output. Check 2D echo. Consult cardiology. 3. Pneumonia: Continue antibiotics. Follow cultures. 4. Hypoxia: Multifactorial. Secondary to COPD, CHF, pneumonia. 5. Hyperglycemia: Patient denies history of diabetes. Repeat hemoglobin A1c. Monitor Accu-Cheks and cover with sliding scale insulin. 6. Hypokalemia: Supplement potassium and monitor labs. 7. Alcohol abuse: Continue full gas, thiamine, multivitamin. [place] protocol. Seizure/withdrawal precautions. 8. Tobacco abuse: Counseled quit smoking. 9. DVT prophylaxis: ELDER Tracey. 10. Sleep apnea: Uses CPAP at home. On BiPAP at night as inpatient. 11. Chest pain: Patient having intermittent chest pressure. Possibly anxiety induced, but patient has cardiac history. Cardiac enzymes negative so far. Consult cardiology. Problem Qualifiers (1) CHF (congestive heart failure): Qualified Code: I50.23 - Acute on chronic systolic congestive heart failure Ney Rey MD January 29, 2017 08:29
[2017-01-29] MEDS: guaiFENesin E.R. 600 MG TAB PO SCH ×2 (08:51→20:49)
[2017-01-29] MEDS: BUDESONIDE-FORMOTEROL 160/4.5 MCG INHALER INH SCH ×2 (08:51→20:50)
[2017-01-29] MEDS: FUROSEMIDE 20 MG TAB PO SCH ×2 (08:51→20:49)
[2017-01-29] MEDS: THIAMINE HCL 100 MG TAB PO SCH (08:51)
[2017-01-29] MEDS: FOLIC ACID 1 MG TAB PO SCH (08:51)
[2017-01-29] MEDS: ASPIRIN EC 81 MG TABEC PO SCH (08:51)
[2017-01-29] MEDS: METOPROLOL TARTRATE 25 MG TAB PO SCH ×2 (08:51→20:49)
[2017-01-29] MEDS: MULTIVITAMINS/MINERALS THERAPEUTIC TAB PO SCH (08:51)
[2017-01-29] MEDS: SODIUM CHLORIDE 0.9% FLUSH 10 ML FLUSH IV FLUSH SCH ×2 (08:52→20:51)
--- NOTE | 2017-01-29 09:26 | MB ---
cc: BEN MATTA MD DATE OF CONSULTATION: 01/29/2017 REASON FOR CONSULTATION CHF. HISTORY OF PRESENT ILLNESS Ms. Yue Greenberg is a 56-year-old female who has a history of PR with a circumflex stent in 2011 in EF of 20%. She subsequently in 2014 underwent catheterization which showed widely patent coronaries and stent. She subsequently underwent Biotronik ICD implantation. Of note, she does follow with Dr. Mcghee. The patient more recently presented with shortness of breath. She was diagnosed with COPD and CHF. She reports about a 4 pound weight gain over the last month. PAST MEDICAL HISTORY Past medical history is significant for: 1. Hypertension. 2. Myocardial infarction. 3. ICD. 4. CHF. 5. COPD. 6. CVA. 7. Alcohol and tobacco abuse. ALLERGIES NO KNOWN DRUG ALLERGIES. CURRENT MEDICATIONS Per the record. FAMILY HISTORY Negative for CAD. SOCIAL HISTORY The patient does continue to smoke. REVIEW OF SYSTEMS Except what is mentioned in the HPI, all 12 systems are negative. PHYSICAL EXAMINATION VITAL SIGNS: 97.5, 98, 15, 113/73. GENERAL: She is a well-appearing female who is in no apparent distress. NECK: Her neck is free from JVD. LUNGS: Have some scattered wheezing. CARDIOVASCULAR: Normal S1-S2. There is a 2/6 systolic murmur. No rubs or gallops appreciated. ABDOMEN: The abdomen is soft. EXTREMITIES: Extremities are free from edema. IMAGING STUDIES Chest x-ray is significant for mild failure. LAB VALUES Show serial troponins of less than 0.02. Telemetry - shows a 24 beat of AIVR. IMPRESSION CHF - the patient does appear to have an acute on chronic systolic failure. We will request an echo for more recent EF. At this point I do agree with continuing Lasix and metoprolol. I would add low dose NEIDA inhibitor given her comorbid conditions. Chest pain - the patient does have a history of CAD and had some chest discomfort with AIVR/slow VT on the device. At this point I would continue with medical management in light of her clean coronaries two years ago and current diagnosis also of pneumonia. Pneumonia - COPD - this will be managed by the primary team. Eddie Puente/TLL /8:54 AM /9:17 AM
[2017-01-29] MEDS ORDERED: INFLUENZA VIRUS VACCINE (QUADRIVALENT) 0.5 ML SYR IM ONE (10:00)
[2017-01-29] MEDS: LISINOPRIL 5 MG TAB PO SCH (10:17)
[2017-01-29] MEDS: ATORVASTATIN 20 MG TAB PO SCH (10:17)
--- NOTE | 2017-01-29 13:22 | EC ---
Study Study Date:01/29/2017 STUDY CONCLUSIONS SUMMARY - Left ventricle: The cavity size was normal. Wall thickness was normal. Systolic function was severely reduced. The estimated ejection fraction was in the range of 25% to 30%. Diffuse hypokinesis. - Aortic valve: Valve area: 2.22cm^2 (Vmax). - Left atrium: The atrium was mildly dilated. If LV function is below 40, please consider prescribing an ACEI or ARB or document rationale for non-use. PROCEDURE DATA STUDY STATUS: Elective. Procedure: Transthoracic echocardiography. Image quality was fair. Scanning was performed from the parasternal, apical, and subcostal acoustic windows. Study completion: The patient tolerated the procedure well. Transthoracic echocardiography. M-mode, complete 2D, complete spectral Doppler, and color Doppler. Height: Height: 63in. Weight: Weight: 158.7lb. Body mass index: BMI: 28.2kg/m^2. Body surface area: BSA: 1.75m^2. Patient status: Inpatient. CARDIAC ANATOMY LEFT VENTRICLE: The cavity size was normal. Wall thickness was normal. Systolic function was severely reduced. The estimated ejection fraction was in the range of 25% to 30%. Diffuse hypokinesis. AORTIC VALVE: Trileaflet; normal thickness leaflets. Doppler: Transvalvular velocity was within the normal range. There was no stenosis. No regurgitation. Valve area: 2.22cm^2 (Vmax). Indexed valve area: 1.27cm^2/m^2 (Vmax). Peak gradient: 10mm Hg (S). AORTA: Aortic root: The aortic root was normal in size. MITRAL VALVE: Structurally normal valve. Doppler: Transvalvular velocity was within the normal range. There was no evidence for stenosis. No regurgitation. LEFT ATRIUM: The atrium was mildly dilated. RIGHT VENTRICLE: The cavity size was normal. Wall thickness was normal. PULMONIC VALVE: Doppler: Transvalvular velocity was within the normal range. There was no evidence for stenosis. No regurgitation. TRICUSPID VALVE: Structurally normal valve. Doppler: Transvalvular velocity was within the normal range. No regurgitation. PULMONARY ARTERY: The main pulmonary artery was normal-sized. Systolic pressure was within the normal range. RIGHT ATRIUM: The atrium was normal in size. PERICARDIUM: There was no pericardial effusion. SYSTEMIC VEINS: Inferior vena cava: The vessel was normal in size. Patient weight: 158.7lb _Ejection fraction:_ 65-75% _Fractional shortening:_ 32% up to 5Kg 5-11.5Kg 11.6-22.9Kg 23-45Kg 45-57Kg Aortic Root 7-13 <17 13-22 17-27 17-27 LA diam 6-13 <23 24-38 33-47 37-40 RVID 10-17 7-15 7-15 7-18 8-17 LVIDd 12-22 <32 24-38 33-47 37-40 LVPW 2-4 3-6 5-7 6-8 7-8 IVS 2-4 3-6 5-7 6-8 7-8 BASIC MEASUREMENTS ADULT NORMAL Left ventricle LV internal dimension, ED, chordal *66 mm 43-52 level, PLAX LV internal dimension, ES, chordal *58.6 mm 23-38 level, PLAX Fractional shortening, chordal level, *11 % >29 PLAX LV posterior wall thickness, ED 9.01 mm IVS/LVPW ratio, ED 1.12 <1.3 Volume, ED, MOD, 1-plane 160 ml Volume, ES, MOD, 1-plane 117 ml Ejection fraction, MOD, 1-plane 27 % Stroke volume, MOD, 1-plane 43 ml Volume index, ED, MOD, 1-plane 91 ml/m^2 Volume index, ES, MOD, 1-plane 67 ml/m^2 Stroke index, MOD, 1-plane 24.6 ml/m^2 Ventricular septum Septal thickness, ED 10.1 mm Aortic valve Leaflet separation 18 mm 15-26 Left atrium Anterior-posterior dimension 48 mm Anterior-posterior dimension index *2.74 cm/m^2 <2.2 Right ventricle RV internal dimension, ED, PLAX 21.4 mm 19-38 BASIC MEASUREMENTS ADULT NORMAL Aortic valve Leaflet separation 18 mm 15-26 Aorta Root diameter, ED 25 mm 20-37 Left atrium Anterior-posterior dimension, ES *48 mm 19-40 Anterior-posterior dimension index, ES *2.74 cm/m^2 <2.2 LA/aortic root ratio 1.92 DOPPLER MEASUREMENTS ADULT NORMAL Aortic valve Peak velocity, S 160 cm/s Peak gradient, S 10 mm Hg Valve area, Vmax 2.22 cm^2 Valve area index, Vmax 1.27 cm^2/m^2 Pulmonic valve Peak velocity, S 73.8 cm/s LEGEND: Mean values are shown as u=mean value. Asterisk (*) nelson values outside specified normal range. Prepared and signed by Ellen Hi [id number]
[2017-01-29] MEDS: VANCOMYCIN INJ 1,250 MG in SODIUM CHLOR 0.9% 250 ML INJ 250 ML IV SCH (14:09)
--- NOTE | 2017-01-29 14:48 | MB ---
cc: CRUZ ARROYO M.D. DATE OF CONSULTATION: 01/29/2017. REASON FOR CONSULTATION: COPD. HISTORY OF PRESENT ILLNESS: Mrs. Greenberg is a 56-year-old female with known history of COPD admitted with increasing shortness of breath. She as well has a history of congestive heart failure. She is followed by cardiology for same. The patient's oxygen saturation upon presentation was in the 70s. The patient is receiving nebulized albuterol at home. Chest x-ray revealed evidence of mild congestive change. She denies history of fever, chills, hemoptysis, TB or previous industrial exposure and a recent cardiac evaluation was without significant coronary artery disease. Ejection fraction is estimated at 20%. PAST MEDICAL HISTORY: 1. Congestive heart failure. 2. COPD. 3. Previous CVA. 4. Alcohol and tobacco abuse. ALLERGIES: NONE KNOWN TO MEDICATIONS. SOCIAL HISTORY: Continued smoking. Drinks on occasion. FAMILY HISTORY: Positive for heart disease, otherwise unremarkable. Exposure to secondhand smoke. REVIEW OF SYSTEMS: A twelve-point review of systems is as per the history of present illness and past history, otherwise negative. PHYSICAL EXAMINATION: VITAL SIGNS: Temperature 98, pulse 90, respirations 18, blood pressure 115/70. HEAD, EYES, EARS, NOSE, THROAT: Unremarkable. Eyes without icterus. NECK: No adenopathy. No thyroid enlargement. Central trachea. CHEST: Decreased breath sounds at bases. CARDIAC: PMI distant. There is a 1/6 systolic ejection murmur left sternal border. ABDOMEN: Lax. Bowel sounds audible. EXTREMITIES: Trace edema. LABORATORY DATA: White count 3.9, hemoglobin 12, hematocrit 35. Sodium 138, potassium 3.7, BUN 18, creatinine 0.7. IMAGING STUDIES: Chest x-ray: Mild congestive change. IMPRESSION: 1. Congestive heart failure. 2. COPD. 3. Hypertension. 4. History of CVA. PLAN: 1. The patient will be maintained on oxygen therapy as needed. 2. Bronchodilators given. 3. Therapy for underlying congestive heart failure by Dr. Hi who is following the patient. 4. A follow-up echocardiogram is ordered. 5. We will order baseline pulmonary function as well. I do thank you for asking me to partake in Mrs. Greenberg's care. MD CLAIRE Lerma/AYSE /2:33 PM /2:43 PM
--- NOTE | 2017-01-29 16:52 | EKG ---
Date Performed: 01/28/2017 Time Performed: 22:50:42 PTAGE: 56 years EKG: Sinus rhythm with borderline 1st degree A-V block Compared to previous tracing, the patient is no longer tachycar dic Borderline ECG NO PREVIOUS TRACING DOCTOR: Ellen Hi Interpretating Date/Time 01/29/2017 16:49:10
[2017-01-30] VITALS (23 sets, daily range): BP systolic 110–133; BP diastolic 68–80; PULSE 75–95; RESP 20; TEMP 98–98.6; O2SAT 96–99
[2017-01-30 04:58] LABS: AUTOMATED NEUTROPHIL # 6.2 TH/MM3 (1.8-7.7); HEMATOCRIT 30.7 % (35.0-46.0); HEMO FLAGS DIFF FINAL; LYMPH % 11.6 % (9.0-44.0); LYMPHOCYTE # 0.9 TH/MM3 (1.0-4.8); MEAN CELL VOLUME 97.6 FL (80.0-100.0); MEAN CORPUSCULAR HEMOGLOBIN 33.3 PG (27.0-34.0); MEAN CORPUSCULAR HGB CONC 34.1 % (32.0-36.0); MONO % 8.9 % (0.0-8.0); NEUT % 79.5 % (16.0-70.0); PLATELET COUNT 184 TH/MM3 (150-450); RED BLOOD COUNT 3.15 MIL/MM3 (4.00-5.30); RED CELL DISTRIBUTION WIDTH 14.6 % (11.6-17.2); WHITE BLOOD COUNT 7.8 TH/MM3 (4.0-11.0)
[2017-01-30] MEDS: VANCOMYCIN INJ 1,250 MG in SODIUM CHLOR 0.9% 250 ML INJ 250 ML IV SCH (05:14)
[2017-01-30] MEDS: PIPERACIL-TAZO 3.375 GM PREMIX 50 ML IV SCH ×3 (05:14→17:29)
[2017-01-30] MEDS: methylPREDNISolone SOD SUCC 40 MG/1 ML VIAL IV PUSH SCH ×3 (05:15→17:29)
[2017-01-30] MEDS ORDERED: PHARMACY ORDERED LAB ONE (05:45)
[2017-01-30] MEDS: INSULIN ASPART SUPPLEMENTAL SCALE SQ SCH ×4 (06:43→21:00)
[2017-01-30] MEDS: RESP: ALBUTEROL 2.5 MG/IPRATROPIUM 0.5 MG NEB (SCH) NEB ×4 (07:21→19:30)
[2017-01-30] MEDS: BUDESONIDE-FORMOTEROL 160/4.5 MCG INHALER INH SCH ×2 (08:19→20:40)
[2017-01-30] MEDS: SODIUM CHLORIDE 0.9% FLUSH 10 ML FLUSH IV FLUSH SCH ×2 (08:19→20:49)
[2017-01-30] MEDS: FUROSEMIDE 20 MG TAB PO SCH ×2 (08:20→20:40)
[2017-01-30] MEDS: FOLIC ACID 1 MG TAB PO SCH (08:20)
[2017-01-30] MEDS: ASPIRIN EC 81 MG TABEC PO SCH (08:20)
[2017-01-30] MEDS: MULTIVITAMINS/MINERALS THERAPEUTIC TAB PO SCH (08:20)
[2017-01-30] MEDS: LISINOPRIL 5 MG TAB PO SCH (08:21)
[2017-01-30] MEDS: THIAMINE HCL 100 MG TAB PO SCH (08:21)
[2017-01-30] MEDS: guaiFENesin E.R. 600 MG TAB PO SCH ×2 (08:21→20:40)
[2017-01-30] MEDS: METOPROLOL TARTRATE 25 MG TAB PO SCH ×2 (08:22→20:40)
[2017-01-30] MEDS: ATORVASTATIN 20 MG TAB PO SCH (08:22)
--- NOTE | 2017-01-30 08:54 | HHI.PR ---
Subjective Remarks Follow-up CHF, COPD. The patient states that she feels more swollen today. Her hands, arms, and legs are "more puffy". She feels "sore all over". She reports discomfort in the center of her chest with coughing. Objective Vitals Vital Signs Date Time Temp Pulse Resp B/P Pulse Ox O2 Delivery O2 Flow Rate FiO2 01/30/17 07:22 97 Nasal Cannula 2.00 01/30/17 07:00 85 01/30/17 07:00 85 01/30/17 06:00 78 01/30/17 05:00 77 01/30/17 04:00 88 01/30/17 03:00 84 01/30/17 03:00 98.0 88 20 110/80 97 01/30/17 03:00 97 Nasal Cannula 2.00 01/30/17 02:00 75 01/30/17 01:00 88 01/30/17 00:00 81 01/29/17 23:00 98 Nasal Cannula 2.00 01/29/17 23:00 77 01/29/17 23:00 98.2 77 20 106/74 97 01/29/17 22:00 89 01/29/17 21:00 86 01/29/17 20:42 97 Nasal Cannula 2.00 01/29/17 20:00 88 01/29/17 19:00 95 01/29/17 19:00 98.0 91 20 116/84 96 01/29/17 19:00 99 Nasal Cannula 2.00 01/29/17 17:00 88 01/29/17 16:18 Nasal Cannula 2.00 01/29/17 16:18 90 01/29/17 16:16 98.1 86 22 123/79 97 01/29/17 15:39 98 Nasal Cannula 3.00 01/29/17 14:00 102 01/29/17 13:00 84 01/29/17 12:00 94 01/29/17 11:15 98.0 86 19 115/72 98 01/29/17 11:15 98 Nasal Cannula 2.00 01/29/17 11:00 94 01/29/17 10:00 96 01/29/17 09:00 94 I/O 01/29/17 01/29/17 01/29/17 01/30/17 01/30/17 01/30/17 07:00 15:00 23:00 07:00 15:00 23:00 Intake Total 1338 ml 1420 ml Output Total 1300 ml 1000 ml 850 ml Balance 38 ml -1000 ml 570 ml Intake Oral 955 ml 600 ml IV Total 383 ml 820 ml Output Urine Total 1300 ml 1000 ml 850 ml # Bowel Movements 0 Result Diagram: 01/30/17 0344 01/29/17 1023 Imaging Last Impressions Chest X-Ray 01/27/17 2230 Signed Impressions: Service Date/Time: Friday, January 27, 2017 22:39 - CONCLUSION: Mild failure. Kip Pinto MD Objective Remarks General: No acute distress. Heart: Regular rate and rhythm. No murmur. Lungs: Scattered rhonchi. Abdomen: Soft, nontender, nondistended. Extremities: Trace bilateral lower extremity edema. SCDs. Psych: Alert and oriented. Procedures None Urinary Catheter: No Vascular Central Line Catheter: No A/P Problem List: (1) CHF (congestive heart failure) ICD Code: I50.9 Status: Chronic (2) PNA (pneumonia) ICD Code: J18.9 Status: Acute (3) Hypoxia ICD Code: R09.02 Status: Acute (4) Hyperglycemia ICD Code: R73.9 Status: Acute (5) Hypokalemia ICD Code: E87.6 Status: Acute (6) Alcohol abuse ICD Code: F10.10 Status: Acute (7) Tobacco abuse ICD Code: Z72.0 Status: Acute (8) COPD exacerbation ICD Code: J44.1 Status: Acute Assessment and Plan 1. COPD, chronic respiratory failure with acute exacerbation: Has been requiring BiPAP. Wean off as tolerated. States she is not on home oxygen. Continue steroids, bronchodilators. Consult patient's field artillery senior sergeant. 2. Acute exacerbation of chronic systolic congestive heart failure: Echocardiogram shows EF 25-30% with diffuse hypokinesis. Patient has AICD in place. Chest x-ray shows findings consistent with mild CHF. Continue diuresis. Monitor intake/output. Appreciate cardiology recommendations. Continue beta tomas, NEIDA inhibitor. 3. Questionable pneumonia: Chest x-ray shows findings consistent with heart failure. Leukocytosis has resolved. Patient has remained afebrile. She is developing acute kidney injury. Stop vancomycin. 4. Hypoxia: Multifactorial. Secondary to COPD, CHF, pneumonia. 5. Hyperglycemia: Patient denies history of diabetes. Repeat hemoglobin A1c. Monitor Accu-Cheks and cover with sliding scale insulin. 6. Hypokalemia: Supplement potassium and monitor labs. 7. Alcohol abuse: Continue folic acid, thiamine, multivitamin. CIWA protocol ordered, but patient not requiring Ativan. Seizure/withdrawal precautions. 8. Tobacco abuse: Counseled to quit smoking. 9. DVT prophylaxis: Kyung, ELDER shelton. 10. Sleep apnea: Uses CPAP at home. On BiPAP at night as inpatient. 11. Chest pain: Patient having intermittent chest pressure. Possibly anxiety induced, but patient has cardiac history. Cardiac enzymes are negative. Appreciate cardiology recommendations. 12. Acute kidney injury: Likely secondary to diuresis, vancomycin. Discontinue vancomycin. Monitor BUN and creatinine. Problem Qualifiers (1) CHF (congestive heart failure): Qualified Code: I50.23 - Acute on chronic systolic congestive heart failure Ney Rey MD January 30, 2017 08:53
[2017-01-30] MEDS: POTASSIUM CHLORIDE 20 MEQ CONTROLLED RELEASE TAB PO SCH (09:39)
--- NOTE | 2017-01-30 10:14 | PD.CARD.PN ---
Subjective Subjective Remarks Pt without CV complaints Objective Medications Current Medications Medications (Trade) Dose Ordered Sig/Justyna Route Start Time Stop Time Status Last Admin (SoluMEDROL INJ) 40 mg Q6HR IV PUSH 01/28/17 06:00 01/30/17 05:15 (Symbicort 160-4.5 Inh) 2 puff Q12HR INH 01/28/17 09:00 01/30/17 08:19 (Mucinex Er) 600 mg BID PO 01/28/17 09:00 01/30/17 08:21 (D50w (Vial) Inj) 50 ml UNSCH PRN IV 01/28/17 00:45 (Glucagon Inj) 1 mg UNSCH PRN OTHER 01/28/17 00:45 (NS Flush) 2 ml UNSCH PRN IV FLUSH 01/28/17 00:45 (NS Flush) 2 ml BID IV FLUSH 01/28/17 09:00 01/30/17 08:19 (Zofran Inj) 4 mg Q6H PRN IVP 01/28/17 00:45 (Dulcolax Supp) 10 mg DAILY PRN RECTAL 01/28/17 00:45 (Tylenol) 650 mg Q6H PRN PO 01/28/17 00:45 (Roxicodone) 10 mg Q4H PRN PO 01/28/17 00:45 (Roxicodone) 5 mg Q4H PRN PO 01/28/17 00:45 (Folate) 1 mg DAILY PO 01/28/17 09:00 02/02/17 08:59 01/30/17 08:20 (Vitamin B1) 100 mg DAILY PO 01/28/17 09:00 01/30/17 08:21 (Theragran M Tab) 1 tab DAILY PO 01/28/17 09:00 02/02/17 08:59 01/30/17 08:20 (Romazicon Inj) 0.2 mg Q1M PRN IV PUSH 01/28/17 00:45 (Ativan) 1 mg Q4H PRN PO 01/28/17 00:45 (Ativan Inj) 1 mg Q4H PRN IV PUSH 01/28/17 00:45 (Ativan) 2 mg Q2H PRN PO 01/28/17 00:45 (Ativan Inj) 2 mg Q2H PRN IV PUSH 01/28/17 00:45 (Ativan Inj) 2 mg Q1H PRN IV PUSH 01/28/17 00:45 (Ativan Inj) 2 mg Q15M PRN IV PUSH 01/28/17 00:45 (Haldol Inj) 2 mg Q15M PRN IM 01/28/17 00:45 (Xanax) 0.5 mg BID PRN PO 01/28/17 00:45 (Ecotrin Ec) 81 mg DAILY PO 01/28/17 09:00 01/30/17 08:20 (Lasix) 20 mg BID PO 01/28/17 09:00 01/30/17 08:20 Metoprolol Tartrate 12.5 mg 12.5 mg BID PO 01/28/17 09:00 01/30/17 08:22 (Zosyn 3.375 Gm Premix) 50 ml @ 100 mls/hr Q6HR IV 01/28/17 06:00 01/30/17 05:14 (Nitrostat Sl) 0.4 mg Q5M PRN SL 01/28/17 22:45 (Prinivil) 5 mg DAILY PO 01/29/17 09:00 01/30/17 08:21 (Lipitor) 20 mg DAILY PO 01/29/17 09:00 01/30/17 08:22 (KCl) 20 meq DAILY PO 01/30/17 09:30 01/30/17 09:39 Vital Signs / I&O Vital Signs Date Time Temp Pulse Resp B/P Pulse Ox O2 Delivery O2 Flow Rate FiO2 01/30/17 09:00 95 01/30/17 08:00 92 01/30/17 08:00 97 Nasal Cannula 2.00 01/30/17 08:00 98.1 94 20 120/71 97 01/30/17 07:22 97 Nasal Cannula 2.00 01/30/17 07:00 85 01/30/17 07:00 85 01/30/17 06:00 78 01/30/17 05:00 77 01/30/17 04:00 88 01/30/17 03:00 84 01/30/17 03:00 98.0 88 20 110/80 97 01/30/17 03:00 97 Nasal Cannula 2.00 01/30/17 02:00 75 01/30/17 01:00 88 01/30/17 00:00 81 01/29/17 23:00 98 Nasal Cannula 2.00 01/29/17 23:00 77 01/29/17 23:00 98.2 77 20 106/74 97 01/29/17 22:00 89 01/29/17 21:00 86 01/29/17 20:42 97 Nasal Cannula 2.00 01/29/17 20:00 88 01/29/17 19:00 95 01/29/17 19:00 98.0 91 20 116/84 96 01/29/17 19:00 99 Nasal Cannula 2.00 01/29/17 17:00 88 01/29/17 16:18 Nasal Cannula 2.00 01/29/17 16:18 90 01/29/17 16:16 98.1 86 22 123/79 97 01/29/17 15:39 98 Nasal Cannula 3.00 01/29/17 14:00 102 01/29/17 13:00 84 01/29/17 12:00 94 01/29/17 11:15 98.0 86 19 115/72 98 01/29/17 11:15 98 Nasal Cannula 2.00 01/29/17 11:00 94 I/O 01/29/17 01/29/17 01/29/17 01/30/17 01/30/17 01/30/17 07:00 15:00 23:00 07:00 15:00 23:00 Intake Total 1338 ml 1420 ml Output Total 1300 ml 1000 ml 850 ml Balance 38 ml -1000 ml 570 ml Intake Oral 955 ml 600 ml IV Total 383 ml 820 ml Output Urine Total 1300 ml 1000 ml 850 ml # Bowel Movements 0 Physical Exam GENERAL: Well developed, well nourished. No acute distress. HEENT: Jugular venous pressure is normal. CHEST: Lungs decreased and clear to auscultation bilaterally. Unlabored respiratory effort. CARDIAC: Regular rate and rhythm without S3, S4, or murmur. ABDOMEN: Soft, nontender, no hepatosplenomegaly. Bowel sounds present. EXTREMITIES: No clubbing, cyanosis, tr edema. Laboratory Laboratory Tests Test 01/29/17 01/30/17 01/30/17 10:23 03:44 04:46 Creatinine 1.31 MG/DL Estimat Glomerular Filtration 42 ML/MIN Rate White Blood Count 7.8 TH/MM3 Red Blood Count 3.15 MIL/MM3 Hemoglobin 10.5 GM/DL Hematocrit 30.7 % Mean Corpuscular Volume 97.6 FL Mean Corpuscular Hemoglobin 33.3 PG Mean Corpuscular Hemoglobin 34.1 % Concent Red Cell Distribution Width 14.6 % Platelet Count 184 TH/MM3 Mean Platelet Volume 8.9 FL Neutrophils (%) (Auto) 79.5 % Lymphocytes (%) (Auto) 11.6 % Monocytes (%) (Auto) 8.9 % Eosinophils (%) (Auto) 0.0 % Basophils (%) (Auto) 0.0 % Neutrophils # (Auto) 6.2 TH/MM3 Lymphocytes # (Auto) 0.9 TH/MM3 Monocytes # (Auto) 0.7 TH/MM3 Eosinophils # (Auto) 0.0 TH/MM3 Basophils # (Auto) 0.0 TH/MM3 CBC Comment DIFF FINAL Differential Comment Vancomycin Level Trough 23.8 MCG/ML Assessment and Plan Assessment and Plan IMPRESSION CHF - the patient does appear to have an acute on chronic systolic failure. -EF 25-30% by ECHO that is up from prior - on BB and NEIDA -continue fluid/sodium cap and lasix/potassium Chest pain - the patient does have a history of CAD and had some chest discomfort with AIVR/slow VT on the device. At this point I would continue with medical management in light of her clean coronaries two years ago and current diagnosis also of pneumonia. 01/30- no change, no further episodes Pneumonia - COPD - this will be managed by the primary team. Ellen Hi MD January 30, 2017 10:14 Ellen Hi MD January 30, 2017 10:14
--- NOTE | 2017-01-30 16:57 | HHI.PR ---
Subjective Remarks Alert up in chair no SOB at restO2 sat adequate RA Objective Vital Signs Date Time Temp Pulse Resp B/P Pulse Ox O2 Delivery O2 Flow Rate FiO2 01/30/17 16:00 85 01/30/17 15:30 98.6 94 20 124/79 97 01/30/17 15:28 98 Nasal Cannula 2.00 01/30/17 15:00 85 01/30/17 14:00 89 01/30/17 13:00 88 01/30/17 12:00 84 01/30/17 11:17 97 Nasal Cannula 2.00 01/30/17 11:17 98.4 94 20 118/68 97 01/30/17 11:00 80 01/30/17 10:00 88 01/30/17 09:00 95 01/30/17 08:00 92 01/30/17 08:00 97 Nasal Cannula 2.00 01/30/17 08:00 98.1 94 20 120/71 97 01/30/17 07:22 97 Nasal Cannula 2.00 01/30/17 07:00 85 01/30/17 07:00 85 01/30/17 06:00 78 01/30/17 05:00 77 01/30/17 04:00 88 01/30/17 03:00 84 01/30/17 03:00 98.0 88 20 110/80 97 01/30/17 03:00 97 Nasal Cannula 2.00 01/30/17 02:00 75 01/30/17 01:00 88 01/30/17 00:00 81 01/29/17 23:00 98 Nasal Cannula 2.00 01/29/17 23:00 77 01/29/17 23:00 98.2 77 20 106/74 97 01/29/17 22:00 89 01/29/17 21:00 86 01/29/17 20:42 97 Nasal Cannula 2.00 01/29/17 20:00 88 01/29/17 19:00 95 01/29/17 19:00 98.0 91 20 116/84 96 01/29/17 19:00 99 Nasal Cannula 2.00 01/29/17 17:00 88 I/O 01/29/17 01/29/17 01/29/17 01/30/17 01/30/17 01/30/17 07:00 15:00 23:00 07:00 15:00 23:00 Intake Total 1338 ml 1420 ml Output Total 1300 ml 1000 ml 850 ml Balance 38 ml -1000 ml 570 ml Intake Oral 955 ml 600 ml IV Total 383 ml 820 ml Output Urine Total 1300 ml 1000 ml 850 ml # Bowel Movements 0 Result Diagram: 01/30/17 0344 01/29/17 1023 Objective Remarks GENERAL: SKIN: Warm and dry. HEAD: Atraumatic. Normocephalic. EYES: Pupils equal and round. No scleral icterus. No injection or drainage. ENT: No nasal bleeding or discharge. Mucous membranes pink and moist. NECK: Trachea midline. No JVD. CARDIOVASCULAR: Regular rate and rhythm. RESPIRATORY: No accessory muscle use. Clear to auscultation. Breath sounds equal bilaterally. GASTROINTESTINAL: Abdomen soft, non-tender, nondistended. Hepatic and splenic margins not palpable. MUSCULOSKELETAL: Extremities without clubbing, cyanosis, or edema. No obvious deformities. NEUROLOGICAL: Awake and alert. No obvious cranial nerve deficits. Motor grossly within normal limits. Five out of 5 muscle strength in the arms and legs. Normal speech. PSYCHIATRIC: Appropriate mood and affect; insight and judgment normal. Assessment and Plan Assessment and Plan assessment Respiratory failure , resolved CHF , improved COPD , on BD therapy plan: contiue bronchodilators therapy for CHF per cardiology increase activity Humera Grubbs MD January 30, 2017 16:57
[2017-01-31] VITALS (32 sets, daily range): BP systolic 113–130; BP diastolic 66–81; PULSE 71–114; RESP 17–22; TEMP 97.7–98.3; O2SAT 93–100
[2017-01-31] MEDS: methylPREDNISolone SOD SUCC 40 MG/1 ML VIAL IV PUSH SCH ×4 (01:57→21:24)
[2017-01-31] MEDS: PIPERACIL-TAZO 3.375 GM PREMIX 50 ML IV SCH ×5 (01:57→23:55)
[2017-01-31 06:26] LABS: AUTOMATED NEUTROPHIL # 6.4 TH/MM3 (1.8-7.7); BASOPHIL % 0.1 % (0.0-2.0); HEMATOCRIT 32.9 % (35.0-46.0); HEMO FLAGS DIFF FINAL; LYMPH % 10.8 % (9.0-44.0); LYMPHOCYTE # 0.8 TH/MM3 (1.0-4.8); MEAN CELL VOLUME 98.8 FL (80.0-100.0); MEAN CORPUSCULAR HEMOGLOBIN 33.4 PG (27.0-34.0); MEAN CORPUSCULAR HGB CONC 33.8 % (32.0-36.0); MONO % 6.8 % (0.0-8.0); NEUT % 82.3 % (16.0-70.0); PLATELET COUNT 198 TH/MM3 (150-450); RED BLOOD COUNT 3.33 MIL/MM3 (4.00-5.30); RED CELL DISTRIBUTION WIDTH 14.2 % (11.6-17.2); WHITE BLOOD COUNT 7.8 TH/MM3 (4.0-11.0)
[2017-01-31 06:50] LABS: POTASSIUM 3.4 MEQ/L (3.5-5.1)
[2017-01-31] MEDS: INSULIN ASPART SUPPLEMENTAL SCALE SQ SCH ×4 (07:00→21:00)
--- NOTE | 2017-01-31 07:30 | PD.CARD.PN ---
Subjective Subjective Remarks PT without complaints Objective Medications Current Medications Medications (Trade) Dose Ordered Sig/Justyna Route Start Time Stop Time Status Last Admin (SoluMEDROL INJ) 40 mg Q6HR IV PUSH 01/28/17 06:00 01/31/17 06:00 (Symbicort 160-4.5 Inh) 2 puff Q12HR INH 01/28/17 09:00 01/30/17 20:40 (Mucinex Er) 600 mg BID PO 01/28/17 09:00 01/30/17 20:40 (D50w (Vial) Inj) 50 ml UNSCH PRN IV 01/28/17 00:45 (Glucagon Inj) 1 mg UNSCH PRN OTHER 01/28/17 00:45 (NS Flush) 2 ml UNSCH PRN IV FLUSH 01/28/17 00:45 (NS Flush) 2 ml BID IV FLUSH 01/28/17 09:00 01/30/17 20:49 (Zofran Inj) 4 mg Q6H PRN IVP 01/28/17 00:45 (Dulcolax Supp) 10 mg DAILY PRN RECTAL 01/28/17 00:45 (Tylenol) 650 mg Q6H PRN PO 01/28/17 00:45 (Roxicodone) 10 mg Q4H PRN PO 01/28/17 00:45 (Roxicodone) 5 mg Q4H PRN PO 01/28/17 00:45 (Folate) 1 mg DAILY PO 01/28/17 09:00 02/02/17 08:59 01/30/17 08:20 (Vitamin B1) 100 mg DAILY PO 01/28/17 09:00 01/30/17 08:21 (Theragran M Tab) 1 tab DAILY PO 01/28/17 09:00 02/02/17 08:59 01/30/17 08:20 (Romazicon Inj) 0.2 mg Q1M PRN IV PUSH 01/28/17 00:45 (Ativan) 1 mg Q4H PRN PO 01/28/17 00:45 (Ativan Inj) 1 mg Q4H PRN IV PUSH 01/28/17 00:45 (Ativan) 2 mg Q2H PRN PO 01/28/17 00:45 (Ativan Inj) 2 mg Q2H PRN IV PUSH 01/28/17 00:45 (Ativan Inj) 2 mg Q1H PRN IV PUSH 01/28/17 00:45 (Ativan Inj) 2 mg Q15M PRN IV PUSH 01/28/17 00:45 (Haldol Inj) 2 mg Q15M PRN IM 01/28/17 00:45 (Xanax) 0.5 mg BID PRN PO 01/28/17 00:45 (Ecotrin Ec) 81 mg DAILY PO 01/28/17 09:00 01/30/17 08:20 (Lasix) 20 mg BID PO 01/28/17 09:00 01/30/17 20:40 Metoprolol Tartrate 12.5 mg 12.5 mg BID PO 01/28/17 09:00 01/30/17 20:40 (Zosyn 3.375 Gm Premix) 50 ml @ 100 mls/hr Q6HR IV 01/28/17 06:00 01/31/17 06:00 (Nitrostat Sl) 0.4 mg Q5M PRN SL 01/28/17 22:45 (Prinivil) 5 mg DAILY PO 01/29/17 09:00 01/30/17 08:21 (Lipitor) 20 mg DAILY PO 01/29/17 09:00 01/30/17 08:22 (KCl) 20 meq DAILY PO 01/30/17 09:30 01/30/17 09:39 Vital Signs / I&O Vital Signs Date Time Temp Pulse Resp B/P Pulse Ox O2 Delivery O2 Flow Rate FiO2 01/31/17 06:00 95 01/31/17 05:00 71 01/31/17 04:16 78 01/31/17 04:00 98.3 94 22 117/79 98 01/31/17 03:53 99 Nasal Cannula 2.00 01/31/17 03:00 80 01/31/17 02:19 80 01/31/17 01:02 98 35 01/31/17 01:00 78 01/31/17 00:00 78 01/31/17 00:00 99 Nasal Cannula 2.00 01/31/17 00:00 98.0 78 20 115/66 99 01/30/17 21:35 96 35 01/30/17 20:00 99 Nasal Cannula 2.00 01/30/17 20:00 98.5 89 20 133/78 99 01/30/17 17:00 91 01/30/17 16:00 85 01/30/17 15:30 98.6 94 20 124/79 97 01/30/17 15:28 98 Nasal Cannula 2.00 01/30/17 15:00 85 01/30/17 14:00 89 01/30/17 13:00 88 01/30/17 12:00 84 01/30/17 11:17 97 Nasal Cannula 2.00 01/30/17 11:17 98.4 94 20 118/68 97 01/30/17 11:00 80 01/30/17 10:00 88 01/30/17 09:00 95 01/30/17 08:00 92 01/30/17 08:00 97 Nasal Cannula 2.00 01/30/17 08:00 98.1 94 20 120/71 97 I/O 01/30/17 01/30/17 01/30/17 01/31/17 01/31/17 01/31/17 07:00 15:00 23:00 07:00 15:00 23:00 Intake Total 1420 ml 1025 ml 480 ml Output Total 850 ml 1020 ml 900 ml Balance 570 ml 5 ml -420 ml Intake Oral 600 ml 875 ml 480 ml IV Total 820 ml 150 ml Output Urine Total 850 ml 1020 ml 900 ml # Bowel Movements 0 1 0 Physical Exam GENERAL: Well developed, well nourished. No acute distress. HEENT: Jugular venous pressure is normal. CHEST: Lungs decreased, rhonchi left base. Unlabored respiratory effort. CARDIAC: Regular rate and rhythm without S3, S4, or murmur. ABDOMEN: Soft, nontender, no hepatosplenomegaly. Bowel sounds present. EXTREMITIES: No clubbing, cyanosis, tr edema. Laboratory Laboratory Tests Test 01/31/17 04:19 White Blood Count 7.8 TH/MM3 Red Blood Count 3.33 MIL/MM3 Hemoglobin 11.1 GM/DL Hematocrit 32.9 % Mean Corpuscular Volume 98.8 FL Mean Corpuscular Hemoglobin 33.4 PG Mean Corpuscular Hemoglobin 33.8 % Concent Red Cell Distribution Width 14.2 % Platelet Count 198 TH/MM3 Mean Platelet Volume 8.8 FL Neutrophils (%) (Auto) 82.3 % Lymphocytes (%) (Auto) 10.8 % Monocytes (%) (Auto) 6.8 % Eosinophils (%) (Auto) 0.0 % Basophils (%) (Auto) 0.1 % Neutrophils # (Auto) 6.4 TH/MM3 Lymphocytes # (Auto) 0.8 TH/MM3 Monocytes # (Auto) 0.5 TH/MM3 Eosinophils # (Auto) 0.0 TH/MM3 Basophils # (Auto) 0.0 TH/MM3 CBC Comment DIFF FINAL Differential Comment Sodium Level 144 MEQ/L Potassium Level 3.4 MEQ/L Chloride Level 107 MEQ/L Carbon Dioxide Level 28.0 MEQ/L Anion Gap 9 MEQ/L Blood Urea Nitrogen 30 MG/DL Creatinine 0.87 MG/DL Estimat Glomerular Filtration 67 ML/MIN Rate Random Glucose 132 MG/DL Calcium Level 8.3 MG/DL Random Vancomycin Level 14.0 COMMENT Assessment and Plan Assessment and Plan IMPRESSION CHF - the patient does appear to have an acute on chronic systolic failure. -EF 25-30% by ECHO that is up from prior - on BB and NEIDA -continue fluid/sodium cap and lasix/potassium Chest pain - the patient does have a history of CAD and had some chest discomfort with AIVR/slow VT on the device. At this point I would continue with medical management in light of her clean coronaries two years ago and current diagnosis also of pneumonia. 01/31- no change, no further episodes Pneumonia - COPD - this will be managed by the primary team. -consider d/c om oxygen in light of her COPD and cardiomyopathy Dispo- ok for d/c from CV perspective Ellen Hi MD January 31, 2017 07:30
[2017-01-31] MEDS ORDERED: POTASSIUM CHLORIDE 20 MEQ CONTROLLED RELEASE TAB PO ONE (08:00)
--- NOTE | 2017-01-31 08:03 | HHI.PR ---
Subjective Remarks Follow up CHF, COPD. The patient reports wheezing. She states that she feels about the same as yesterday overall. Still with occasional episodes of dyspnea and chest tightness, which she attributes to anxiety. Objective Vitals Vital Signs Date Time Temp Pulse Resp B/P Pulse Ox O2 Delivery O2 Flow Rate FiO2 01/31/17 06:00 95 01/31/17 05:00 71 01/31/17 04:16 78 01/31/17 04:00 98.3 94 22 117/79 98 01/31/17 03:53 99 Nasal Cannula 2.00 01/31/17 03:00 80 01/31/17 02:19 80 01/31/17 01:02 98 35 01/31/17 01:00 78 01/31/17 00:00 78 01/31/17 00:00 99 Nasal Cannula 2.00 01/31/17 00:00 98.0 78 20 115/66 99 01/30/17 21:35 96 35 01/30/17 20:00 99 Nasal Cannula 2.00 01/30/17 20:00 98.5 89 20 133/78 99 01/30/17 17:00 91 01/30/17 16:00 85 01/30/17 15:30 98.6 94 20 124/79 97 01/30/17 15:28 98 Nasal Cannula 2.00 01/30/17 15:00 85 01/30/17 14:00 89 01/30/17 13:00 88 01/30/17 12:00 84 01/30/17 11:17 97 Nasal Cannula 2.00 01/30/17 11:17 98.4 94 20 118/68 97 01/30/17 11:00 80 01/30/17 10:00 88 01/30/17 09:00 95 01/30/17 08:00 92 01/30/17 08:00 97 Nasal Cannula 2.00 01/30/17 08:00 98.1 94 20 120/71 97 I/O 01/30/17 01/30/17 01/30/17 01/31/17 01/31/17 01/31/17 07:00 15:00 23:00 07:00 15:00 23:00 Intake Total 1420 ml 1025 ml 480 ml Output Total 850 ml 1020 ml 900 ml Balance 570 ml 5 ml -420 ml Intake Oral 600 ml 875 ml 480 ml IV Total 820 ml 150 ml Output Urine Total 850 ml 1020 ml 900 ml # Bowel Movements 0 1 0 Result Diagram: 01/31/1741801/31/17418 Imaging Last Impressions Chest X-Ray 01/27/172229 Signed Impressions: Service Date/Time: Friday, January 27, 2017 22:39 - CONCLUSION: Mild failure. Kip Pinto MD Objective Remarks General: No acute distress. Heart: Regular rate and rhythm. No murmur. Lungs: Scattered wheeze. Abdomen: Soft, nontender, nondistended. Extremities: Trace bilateral lower extremity edema. SCDs. Psych: Alert and oriented. Procedures None Urinary Catheter: No Vascular Central Line Catheter: No A/P Problem List: (1) CHF (congestive heart failure) ICD Code: I50.9 Status: Chronic (2) PNA (pneumonia) ICD Code: J18.9 Status: Acute (3) Hypoxia ICD Code: R09.02 Status: Acute (4) Hyperglycemia ICD Code: R73.9 Status: Acute (5) Hypokalemia ICD Code: E87.6 Status: Acute (6) Alcohol abuse ICD Code: F10.10 Status: Acute (7) Tobacco abuse ICD Code: Z72.0 Status: Acute (8) COPD exacerbation ICD Code: J44.1 Status: Acute Assessment and Plan 1. COPD, chronic respiratory failure with acute exacerbation: Has been requiring BiPAP. Wean off as tolerated. States she is not on home oxygen. Continue steroids, bronchodilators. Appreciate pulmonology recommendations. May require home oxygen. Check home O2 walk test. 2. Acute exacerbation of chronic systolic congestive heart failure: Echocardiogram shows EF 25-30% with diffuse hypokinesis. Patient has AICD in place. Chest x-ray shows findings consistent with mild CHF. Continue diuresis. Monitor intake/output. Appreciate cardiology recommendations. Continue low dose beta tomas, NEIDA inhibitor. Fluid restriction. 3. Questionable pneumonia: Chest x-ray shows findings consistent with heart failure. Leukocytosis has resolved. Patient has remained afebrile. Vancomycin discontinued due to acute kidney injury. 4. Hypoxia: Multifactorial. Secondary to COPD, CHF, pneumonia. 5. Hyperglycemia: Patient denies history of diabetes. Hemoglobin A1c is 5.0. Monitor Accu-Cheks and cover with sliding scale insulin. Glucose likely elevated due to steroids. 6. Hypokalemia: Supplement potassium and monitor labs. 7. Alcohol abuse: Continue folic acid, thiamine, multivitamin. CIWA protocol ordered, but patient not requiring Ativan. Seizure/withdrawal precautions. 8. Tobacco abuse: Counseled to quit smoking. 9. DVT prophylaxis: ELDER Tracey. 10. Sleep apnea: Uses CPAP at home. On BiPAP at night as inpatient. 11. Chest pain: Patient having intermittent chest pressure. Possibly anxiety induced, but patient has cardiac history. Cardiac enzymes are negative. Appreciate cardiology recommendations. 12. Acute kidney injury: Likely secondary to diuresis, vancomycin. Discontinue vancomycin. Monitor BUN and creatinine. Improving. Problem Qualifiers (1) CHF (congestive heart failure): Qualified Code: I50.23 - Acute on chronic systolic congestive heart failure Ney Rey MD January 31, 2017 08:03
[2017-01-31] MEDS: RESP: ALBUTEROL 2.5 MG/IPRATROPIUM 0.5 MG NEB (SCH) NEB ×4 (08:20→20:25)
[2017-01-31] MEDS: THIAMINE HCL 100 MG TAB PO SCH (08:35)
[2017-01-31] MEDS: ASPIRIN EC 81 MG TABEC PO SCH (08:35)
[2017-01-31] MEDS: FOLIC ACID 1 MG TAB PO SCH (08:35)
[2017-01-31] MEDS: MULTIVITAMINS/MINERALS THERAPEUTIC TAB PO SCH (08:36)
[2017-01-31] MEDS: POTASSIUM CHLORIDE 20 MEQ CONTROLLED RELEASE TAB PO SCH (08:36)
[2017-01-31] MEDS: ATORVASTATIN 20 MG TAB PO SCH (08:37)
[2017-01-31] MEDS: LISINOPRIL 5 MG TAB PO SCH (08:37)
[2017-01-31] MEDS: METOPROLOL TARTRATE 25 MG TAB PO SCH ×2 (08:37→21:24)
[2017-01-31] MEDS: guaiFENesin E.R. 600 MG TAB PO SCH ×2 (08:37→21:24)
[2017-01-31] MEDS: FUROSEMIDE 20 MG TAB PO SCH ×2 (08:38→21:24)
[2017-01-31] MEDS: SODIUM CHLORIDE 0.9% FLUSH 10 ML FLUSH IV FLUSH SCH ×2 (08:39→21:24)
[2017-01-31] MEDS: BUDESONIDE-FORMOTEROL 160/4.5 MCG INHALER INH SCH ×2 (08:39→21:23)
--- NOTE | 2017-01-31 09:11 | HHI.PR ---
Subjective Remarks Alert up in chair no SOB at restO2 sat adequate RA Objective Vital Signs Date Time Temp Pulse Resp B/P Pulse Ox O2 Delivery O2 Flow Rate FiO2 01/31/17 08:22 93 21 01/31/17 07:30 97.7 82 17 117/78 96 01/31/17 07:30 95 Nasal Cannula 1.00 01/31/17 06:00 95 01/31/17 05:00 71 01/31/17 04:16 78 01/31/17 04:00 98.3 94 22 117/79 98 01/31/17 03:53 99 Nasal Cannula 2.00 01/31/17 03:00 80 01/31/17 02:19 80 01/31/17 01:02 98 35 01/31/17 01:00 78 01/31/17 00:00 78 01/31/17 00:00 99 Nasal Cannula 2.00 01/31/17 00:00 98.0 78 20 115/66 99 01/30/17 21:35 96 35 01/30/17 20:00 99 Nasal Cannula 2.00 01/30/17 20:00 98.5 89 20 133/78 99 01/30/17 17:00 91 01/30/17 16:00 85 01/30/17 15:30 98.6 94 20 124/79 97 01/30/17 15:28 98 Nasal Cannula 2.00 01/30/17 15:00 85 01/30/17 14:00 89 01/30/17 13:00 88 01/30/17 12:00 84 01/30/17 11:17 97 Nasal Cannula 2.00 01/30/17 11:17 98.4 94 20 118/68 97 01/30/17 11:00 80 01/30/17 10:00 88 I/O 01/30/17 01/30/17 01/30/17 01/31/17 01/31/17 01/31/17 07:00 15:00 23:00 07:00 15:00 23:00 Intake Total 1420 ml 1025 ml 480 ml Output Total 850 ml 1020 ml 900 ml Balance 570 ml 5 ml -420 ml Intake Oral 600 ml 875 ml 480 ml IV Total 820 ml 150 ml Output Urine Total 850 ml 1020 ml 900 ml # Bowel Movements 0 1 0 Result Diagram: 01/31/17 0419 01/31/17 0419 Objective Remarks GENERAL: SKIN: Warm and dry. HEAD: Atraumatic. Normocephalic. EYES: Pupils equal and round. No scleral icterus. No injection or drainage. ENT: No nasal bleeding or discharge. Mucous membranes pink and moist. NECK: Trachea midline. No JVD. CARDIOVASCULAR: Regular rate and rhythm. RESPIRATORY: No accessory muscle use. Clear to auscultation. Breath sounds equal bilaterally. GASTROINTESTINAL: Abdomen soft, non-tender, nondistended. Hepatic and splenic margins not palpable. MUSCULOSKELETAL: Extremities without clubbing, cyanosis, or edema. No obvious deformities. NEUROLOGICAL: Awake and alert. No obvious cranial nerve deficits. Motor grossly within normal limits. Five out of 5 muscle strength in the arms and legs. Normal speech. PSYCHIATRIC: Appropriate mood and affect; insight and judgment normal. Assessment and Plan Assessment and Plan assessment Respiratory failure , resolved CHF , improved COPD , on BD therapy plan: contiue bronchodilators therapy for CHF per cardiology increase activity Humera Grubbs MD January 31, 2017 09:11
[2017-02-01] VITALS (31 sets, daily range): BP systolic 104–127; BP diastolic 60–85; PULSE 70–109; RESP 16–20; TEMP 97.6–98.6; O2SAT 95–100
[2017-02-01] MEDS: INSULIN ASPART SUPPLEMENTAL SCALE SQ SCH ×4 (05:59→21:00)
[2017-02-01] MEDS: methylPREDNISolone SOD SUCC 40 MG/1 ML VIAL IV PUSH SCH ×3 (06:02→20:53)
[2017-02-01] MEDS: PIPERACIL-TAZO 3.375 GM PREMIX 50 ML IV SCH ×3 (06:03→16:47)
[2017-02-01 06:43] LABS: BICARBONATE 25.2 MEQ/L (21.0-32.0); POTASSIUM 3.7 MEQ/L (3.5-5.1)
[2017-02-01] MEDS: RESP: ALBUTEROL 2.5 MG/IPRATROPIUM 0.5 MG NEB (SCH) NEB ×4 (06:43→20:05)
--- NOTE | 2017-02-01 06:44 | PD.CARD.PN ---
Subjective Subjective Remarks PT c/o SHOB Objective Medications Current Medications Medications (Trade) Dose Ordered Sig/Justyna Route Start Time Stop Time Status Last Admin (Symbicort 160-4.5 Inh) 2 puff Q12HR INH 01/28/17 09:00 01/31/17 21:23 (Mucinex Er) 600 mg BID PO 01/28/17 09:00 01/31/17 21:24 (D50w (Vial) Inj) 50 ml UNSCH PRN IV 01/28/17 00:45 (Glucagon Inj) 1 mg UNSCH PRN OTHER 01/28/17 00:45 (NS Flush) 2 ml UNSCH PRN IV FLUSH 01/28/17 00:45 01/31/17 12:00 (NS Flush) 2 ml BID IV FLUSH 01/28/17 09:00 01/31/17 21:24 (Zofran Inj) 4 mg Q6H PRN IVP 01/28/17 00:45 (Dulcolax Supp) 10 mg DAILY PRN RECTAL 01/28/17 00:45 (Tylenol) 650 mg Q6H PRN PO 01/28/17 00:45 (Roxicodone) 10 mg Q4H PRN PO 01/28/17 00:45 (Roxicodone) 5 mg Q4H PRN PO 01/28/17 00:45 (Folate) 1 mg DAILY PO 01/28/17 09:00 02/02/17 08:59 01/31/17 08:35 (Vitamin B1) 100 mg DAILY PO 01/28/17 09:00 01/31/17 08:35 (Theragran M Tab) 1 tab DAILY PO 01/28/17 09:00 02/02/17 08:59 01/31/17 08:36 (Romazicon Inj) 0.2 mg Q1M PRN IV PUSH 01/28/17 00:45 (Ativan) 1 mg Q4H PRN PO 01/28/17 00:45 (Ativan Inj) 1 mg Q4H PRN IV PUSH 01/28/17 00:45 (Ativan) 2 mg Q2H PRN PO 01/28/17 00:45 (Ativan Inj) 2 mg Q2H PRN IV PUSH 01/28/17 00:45 (Ativan Inj) 2 mg Q1H PRN IV PUSH 01/28/17 00:45 (Ativan Inj) 2 mg Q15M PRN IV PUSH 01/28/17 00:45 (Haldol Inj) 2 mg Q15M PRN IM 01/28/17 00:45 (Xanax) 0.5 mg BID PRN PO 01/28/17 00:45 (Ecotrin Ec) 81 mg DAILY PO 01/28/17 09:00 01/31/17 08:35 (Lasix) 20 mg BID PO 01/28/17 09:00 01/31/17 21:24 Metoprolol Tartrate 12.5 mg 12.5 mg BID PO 01/28/17 09:00 01/31/17 21:24 (Zosyn 3.375 Gm Premix) 50 ml @ 100 mls/hr Q6HR IV 01/28/17 06:00 02/01/17 06:03 (Nitrostat Sl) 0.4 mg Q5M PRN SL 01/28/17 22:45 (Prinivil) 5 mg DAILY PO 01/29/17 09:00 01/31/17 08:37 (Lipitor) 20 mg DAILY PO 01/29/17 09:00 01/31/17 08:37 (KCl) 20 meq DAILY PO 01/30/17 09:30 01/31/17 08:36 (SoluMEDROL INJ) 40 mg Q8HR IV PUSH 01/31/17 14:00 02/01/17 06:02 Vital Signs / I&O Vital Signs Date Time Temp Pulse Resp B/P Pulse Ox O2 Delivery O2 Flow Rate FiO2 02/01/17 06:00 70 02/01/17 05:19 78 02/01/17 04:15 100 35 02/01/17 04:00 85 02/01/17 03:00 83 02/01/17 03:00 96 Bi-Pap 02/01/17 03:00 98.5 93 16 124/85 96 02/01/17 02:00 84 02/01/17 01:00 98 02/01/17 00:00 80 01/31/17 23:36 100 35 01/31/17 23:00 100 Bi-Pap 01/31/17 23:00 78 01/31/17 23:00 98.0 81 18 115/74 100 01/31/17 22:00 86 01/31/17 21:00 86 01/31/17 20:26 97 21 01/31/17 20:00 86 01/31/17 19:00 98.3 84 18 115/68 97 01/31/17 19:00 97 Room Air 01/31/17 19:00 114 01/31/17 18:26 86 01/31/17 17:46 94 01/31/17 16:53 91 01/31/17 15:45 96 Room Air 01/31/17 15:25 98.3 80 19 113/69 96 01/31/17 15:00 79 01/31/17 14:00 80 01/31/17 13:00 96 01/31/17 12:00 82 01/31/17 11:39 96 Room Air 01/31/17 11:38 97.7 95 18 130/81 96 01/31/17 11:00 88 01/31/17 10:18 79 01/31/17 09:00 100 01/31/17 08:22 93 21 01/31/17 08:00 80 01/31/17 07:30 97.7 82 17 117/78 96 01/31/17 07:30 95 Nasal Cannula 1.00 01/31/17 07:00 85 I/O 01/31/17 01/31/17 01/31/17 02/01/17 02/01/17 02/01/17 07:00 15:00 23:00 07:00 15:00 23:00 Intake Total 480 ml 770 ml 480 ml Output Total 900 ml 1000 ml 400 ml Balance -420 ml -230 ml 80 ml Intake Oral 480 ml 720 ml 480 ml IV Total 50 ml Output Urine Total 900 ml 1000 ml 400 ml # Bowel Movements 0 1 Physical Exam GENERAL: Well developed, well nourished. No acute distress. HEENT: Jugular venous pressure is normal. CHEST: Lungs decreased, wheeze and rales left base. Unlabored respiratory effort. CARDIAC: Regular rate and rhythm without S3, S4, or murmur. ABDOMEN: Soft, nontender, no hepatosplenomegaly. Bowel sounds present. EXTREMITIES: No clubbing, cyanosis, tr edema. Assessment and Plan Assessment and Plan IMPRESSION CHF - the patient does appear to have an acute on chronic systolic failure. -EF 25-30% by ECHO that is up from prior - on BB and NEIDA -continue fluid/sodium cap and increase lasix/potassium Chest pain - the patient does have a history of CAD and had some chest discomfort with AIVR/slow VT on the device. At this point I would continue with medical management in light of her clean coronaries two years ago and current diagnosis also of pneumonia. 01/31- no change, no further episodes Pneumonia - COPD - this will be managed by the primary team. -consider d/c om oxygen in light of her COPD and cardiomyopathy Ellen Hi MD February 01, 2017 06:44
[2017-02-01] MEDS ORDERED: FUROSEMIDE 40 MG/4 ML VIAL IV PUSH ONE (06:45)
[2017-02-01] MEDS: POTASSIUM CHLORIDE 20 MEQ CONTROLLED RELEASE TAB PO SCH ×2 (08:40→20:53)
[2017-02-01] MEDS: MULTIVITAMINS/MINERALS THERAPEUTIC TAB PO SCH (08:40)
[2017-02-01] MEDS: FOLIC ACID 1 MG TAB PO SCH (08:40)
[2017-02-01] MEDS: ATORVASTATIN 20 MG TAB PO SCH (08:40)
[2017-02-01] MEDS: guaiFENesin E.R. 600 MG TAB PO SCH ×2 (08:40→20:53)
[2017-02-01] MEDS: LISINOPRIL 5 MG TAB PO SCH (08:40)
[2017-02-01] MEDS: SODIUM CHLORIDE 0.9% FLUSH 10 ML FLUSH IV FLUSH SCH ×2 (08:41→20:53)
[2017-02-01] MEDS: BUDESONIDE-FORMOTEROL 160/4.5 MCG INHALER INH SCH ×2 (08:41→20:54)
[2017-02-01] MEDS: ASPIRIN EC 81 MG TABEC PO SCH (08:41)
[2017-02-01] MEDS: METOPROLOL TARTRATE 25 MG TAB PO SCH ×2 (08:41→20:53)
[2017-02-01] MEDS: THIAMINE HCL 100 MG TAB PO SCH (08:41)
--- NOTE | 2017-02-01 09:08 | HHI.PR ---
Subjective Remarks CHF, COPD. The patient had increased shortness of breath this morning. She was noted on examination by the acid plant helper to have evidence of fluid overload. She was given IV Lasix and her oral Lasix dose was increased. She does feel a little bit better at this time. Denies chest pain except while having episodes of dyspnea. Objective Vitals Vital Signs Date Time Temp Pulse Resp B/P Pulse Ox O2 Delivery O2 Flow Rate FiO2 02/01/17 07:15 95 35 02/01/17 06:00 70 02/01/17 05:19 78 02/01/17 04:15 100 35 02/01/17 04:00 85 02/01/17 03:00 83 02/01/17 03:00 96 Bi-Pap 02/01/17 03:00 98.5 93 16 124/85 96 02/01/17 02:00 84 02/01/17 01:00 98 02/01/17 00:00 80 01/31/17 23:36 100 35 01/31/17 23:00 100 Bi-Pap 01/31/17 23:00 78 01/31/17 23:00 98.0 81 18 115/74 100 01/31/17 22:00 86 01/31/17 21:00 86 01/31/17 20:26 97 21 01/31/17 20:00 86 01/31/17 19:00 98.3 84 18 115/68 97 01/31/17 19:00 97 Room Air 01/31/17 19:00 114 01/31/17 18:26 86 01/31/17 17:46 94 01/31/17 16:53 91 01/31/17 15:45 96 Room Air 01/31/17 15:25 98.3 80 19 113/69 96 01/31/17 15:00 79 01/31/17 14:00 80 01/31/17 13:00 96 01/31/17 12:00 82 01/31/17 11:39 96 Room Air 01/31/17 11:38 97.7 95 18 130/81 96 01/31/17 11:00 88 01/31/17 10:18 79 I/O 01/31/17 01/31/17 01/31/17 02/01/17 02/01/17 02/01/17 07:00 15:00 23:00 07:00 15:00 23:00 Intake Total 480 ml 770 ml 480 ml Output Total 900 ml 1000 ml 400 ml Balance -420 ml -230 ml 80 ml Intake Oral 480 ml 720 ml 480 ml IV Total 50 ml Output Urine Total 900 ml 1000 ml 400 ml # Bowel Movements 0 1 Result Diagram: 01/31/17 0419 02/01/17 0410 Imaging Last Impressions Chest X-Ray 01/27/172229 Signed Impressions: Service Date/Time: Friday, January 27, 2017 22:39 - CONCLUSION: Mild failure. Kip Pinto MD Objective Remarks General: No acute distress. Heart: Regular rate and rhythm. No murmur. Lungs: Decreased breath sounds in both bases. Scattered rhonchi. Abdomen: Soft, nontender, nondistended. Extremities: Trace right lower extremity edema. SCDs. Psych: Alert and oriented. Procedures None Urinary Catheter: No Vascular Central Line Catheter: No A/P Problem List: (1) CHF (congestive heart failure) ICD Code: I50.9 Status: Chronic (2) PNA (pneumonia) ICD Code: J18.9 Status: Acute (3) Hypoxia ICD Code: R09.02 Status: Acute (4) Hyperglycemia ICD Code: R73.9 Status: Acute (5) Hypokalemia ICD Code: E87.6 Status: Acute (6) Alcohol abuse ICD Code: F10.10 Status: Acute (7) Tobacco abuse ICD Code: Z72.0 Status: Acute (8) COPD exacerbation ICD Code: J44.1 Status: Acute Assessment and Plan 1. COPD, chronic respiratory failure with acute exacerbation: Has been requiring BiPAP. Wean off as tolerated. States she is not on home oxygen. Continue steroids, bronchodilators. Appreciate pulmonology recommendations. Per home oxygen walk test, patient does not qualify for home oxygen. 2. Acute exacerbation of chronic systolic congestive heart failure: Echocardiogram shows EF 25-30% with diffuse hypokinesis. Patient has AICD in place. Chest x-ray shows findings consistent with mild CHF. Monitor intake/ output. Appreciate cardiology recommendations. Continue low dose beta tomas, NEIDA inhibitor. Fluid restriction. Lasix increased today. 3. Questionable pneumonia: Chest x-ray shows findings consistent with heart failure. Leukocytosis has resolved. Patient has remained afebrile. Vancomycin discontinued due to acute kidney injury. 4. Hypoxia: Multifactorial. Secondary to COPD, CHF, pneumonia. 5. Hyperglycemia: Patient denies history of diabetes. Hemoglobin A1c is 5.0. Monitor Accu-Cheks and cover with sliding scale insulin. Glucose likely elevated due to steroids. 6. Hypokalemia: Supplement potassium and monitor labs. 7. Alcohol abuse: Continue folic acid, thiamine, multivitamin. CIWA protocol ordered, but patient not requiring Ativan. Seizure/withdrawal precautions. 8. Tobacco abuse: Counseled to quit smoking. 9. DVT prophylaxis: ELDER Tracey. 10. Sleep apnea: Uses CPAP at home. On BiPAP at night as inpatient. 11. Chest pain: Patient having intermittent chest pressure. Possibly anxiety induced, but patient has cardiac history. Cardiac enzymes are negative. Appreciate cardiology recommendations. 12. Acute kidney injury: Likely secondary to diuresis, vancomycin. Discontinue vancomycin. Monitor BUN and creatinine. Improved. Discharge Planning Possible discharge home next 1-2 days pending clinical improvement. Problem Qualifiers (1) CHF (congestive heart failure): Qualified Code: I50.23 - Acute on chronic systolic congestive heart failure Ney Rey MD February 01, 2017 09:08
[2017-02-01] MEDS: FUROSEMIDE 40 MG TAB PO SCH (16:48)
--- NOTE | 2017-02-01 20:00 | RADRPT ---
EXAM DATE/TIME: 02/01/2017 19:47 [place] COMPARISON: No previous studies available for comparison. INDICATIONS : Short of breath. MEDICAL HISTORY : Hypercholesterolemia. Chronic obstructive pulmonary disease. SURGICAL HISTORY : Pacemaker. ENCOUNTER: Subsequent ACUITY: 4 - 6 days PAIN SCORE: 0/10 LOCATION: Bilateral chest FINDINGS: Cardiomegaly and pacer device again seen. There is blunting of the costophrenic angles consistent wit h small effusions versus scarring. There is no consolidation. CONCLUSION: Small effusions versus scarring. John Gilmore MD on February 01, 2017 at 19:58 Board Certified Radiologist. This report was verified electronically.
[2017-02-02] VITALS (27 sets, daily range): BP systolic 113–136; BP diastolic 71–86; PULSE 68–104; RESP 16–20; TEMP 97.6–98.4; O2SAT 92–100
[2017-02-02] MEDS: PIPERACIL-TAZO 3.375 GM PREMIX 50 ML IV SCH ×5 (00:11→23:53)
[2017-02-02] MEDS: methylPREDNISolone SOD SUCC 40 MG/1 ML VIAL IV PUSH SCH ×2 (05:49→21:15)
[2017-02-02 06:18] LABS: AUTOMATED NEUTROPHIL # 6.9 TH/MM3 (1.8-7.7); BASOPHIL % 0.1 % (0.0-2.0); EOSINOPHIL # 0.1 TH/MM3 (0-0.4); EOSINOPHIL % 0.6 % (0.0-4.0); HEMATOCRIT 33.4 % (35.0-46.0); HEMO FLAGS DIFF FINAL; LYMPH % 15.5 % (9.0-44.0); LYMPHOCYTE # 1.4 TH/MM3 (1.0-4.8); MEAN CELL VOLUME 98.7 FL (80.0-100.0); MEAN CORPUSCULAR HEMOGLOBIN 32.8 PG (27.0-34.0); MEAN CORPUSCULAR HGB CONC 33.3 % (32.0-36.0); MONO % 8.7 % (0.0-8.0); NEUT % 75.1 % (16.0-70.0); PLATELET COUNT 195 TH/MM3 (150-450); RED BLOOD COUNT 3.38 MIL/MM3 (4.00-5.30); RED CELL DISTRIBUTION WIDTH 14.2 % (11.6-17.2); WHITE BLOOD COUNT 9.1 TH/MM3 (4.0-11.0)
[2017-02-02 06:38] LABS: BICARBONATE 27.3 MEQ/L (21.0-32.0)
[2017-02-02] MEDS: INSULIN ASPART SUPPLEMENTAL SCALE SQ SCH ×4 (06:44→21:00)
[2017-02-02] MEDS: RESP: ALBUTEROL 2.5 MG/IPRATROPIUM 0.5 MG NEB (SCH) NEB ×4 (07:28→20:00)
--- NOTE | 2017-02-02 08:18 | HHI.PR ---
Subjective Remarks CHF, COPD. The patient states that she had an episode of significant dyspnea after taking off the BiPAP this morning. She was placed back on oxygen and her symptoms did improve. She does not quite feel ready to go home yet. Denies chest pain. Denies cough. Objective Vitals Vital Signs Date Time Temp Pulse Resp B/P Pulse Ox O2 Delivery O2 Flow Rate FiO2 02/02/17 08:00 97.6 88 18 113/75 94 02/02/17 07:29 92 21 02/02/17 07:00 89 02/02/17 06:00 71 02/02/17 05:00 78 02/02/17 04:40 100 35 02/02/17 04:30 68 02/02/17 03:00 100 Bi-Pap 02/02/17 03:00 98.4 82 16 116/75 100 02/02/17 03:00 72 02/02/17 02:05 69 02/02/17 01:00 76 02/02/17 00:00 74 02/01/17 23:45 99 35 02/01/17 23:00 100 Bi-Pap 02/01/17 23:00 98.6 78 16 104/60 100 02/01/17 23:00 80 02/01/17 22:00 82 02/01/17 21:00 82 02/01/17 20:06 99 02/01/17 20:00 84 02/01/17 19:00 99 Nasal Cannula 2.00 02/01/17 19:00 90 02/01/17 19:00 97.9 84 18 110/65 99 02/01/17 18:26 77 02/01/17 17:00 76 02/01/17 16:07 87 02/01/17 15:25 96 Room Air 02/01/17 15:03 97.6 84 16 122/84 96 02/01/17 15:00 81 02/01/17 14:00 84 02/01/17 13:00 78 02/01/17 12:00 78 02/01/17 11:44 96 02/01/17 11:15 98.2 84 19 118/72 95 02/01/17 11:00 77 02/01/17 11:00 95 Room Air 02/01/17 10:00 78 02/01/17 09:00 108 I/O 02/01/17 02/01/17 02/01/17 02/02/17 02/02/17 02/02/17 07:00 15:00 23:00 07:00 15:00 23:00 Intake Total 480 ml 1060 ml 410 ml Output Total 400 ml 1850 ml 900 ml Balance 80 ml -790 ml -490 ml Intake Oral 480 ml 960 ml 360 ml IV Total 100 ml 50 ml Output Urine Total 400 ml 1850 ml 900 ml # Bowel Movements 1 Result Diagram: 02/02/17 0435 02/02/17 0435 Imaging Last Impressions Chest X-Ray 02/01/17 0000 Signed Impressions: Service Date/Time: Wednesday, February 01, 2017 19:47 - CONCLUSION: Small effusions versus scarring. John Gilmore MD Objective Remarks General: No acute distress. Heart: Regular rate and rhythm. No murmur. Lungs: Mild crackles in both bases. Mild scattered wheeze. Abdomen: Soft, nontender, nondistended. Extremities: Trace right lower extremity edema. SCDs. Psych: Alert and oriented. Procedures None Urinary Catheter: No Vascular Central Line Catheter: No A/P Problem List: (1) CHF (congestive heart failure) ICD Code: I50.9 Status: Chronic (2) PNA (pneumonia) ICD Code: J18.9 Status: Acute (3) Hypoxia ICD Code: R09.02 Status: Acute (4) Hyperglycemia ICD Code: R73.9 Status: Acute (5) Hypokalemia ICD Code: E87.6 Status: Acute (6) Alcohol abuse ICD Code: F10.10 Status: Acute (7) Tobacco abuse ICD Code: Z72.0 Status: Acute (8) COPD exacerbation ICD Code: J44.1 Status: Acute Assessment and Plan 1. COPD, chronic respiratory failure with acute exacerbation: No longer requiring BiPAP except at night for sleep apnea. States she is not on home oxygen. Taper steroids. Continue bronchodilators. Appreciate pulmonology recommendations. Repeat home oxygen walk test today. 2. Acute exacerbation of chronic systolic congestive heart failure: Echocardiogram shows EF 25-30% with diffuse hypokinesis. Patient has AICD in place. Chest x-ray shows findings consistent with mild CHF. Monitor intake/ output. Appreciate cardiology recommendations. Continue low dose beta tomas, NEIDA inhibitor. Fluid restriction. Continue Lasix. 3. Questionable pneumonia: Chest x-ray shows findings consistent with heart failure. Leukocytosis has resolved. Patient has remained afebrile. Vancomycin discontinued due to acute kidney injury. 4. Hypoxia: Multifactorial. Secondary to COPD, CHF, pneumonia. 5. Hyperglycemia: Patient denies history of diabetes. Hemoglobin A1c is 5.0. Monitor Accu-Cheks and cover with sliding scale insulin. Glucose likely elevated due to steroids. 6. Hypokalemia: Improved. Continue potassium supplementation. 7. Alcohol abuse: Continue folic acid, thiamine, multivitamin. CIWA protocol ordered, but patient not requiring Ativan. Seizure/withdrawal precautions. 8. Tobacco abuse: Counseled to quit smoking. 9. DVT prophylaxis: ELDER Tracey. 10. Sleep apnea: Uses CPAP at home. On BiPAP at night as inpatient. 11. Chest pain: Patient having intermittent chest pressure. Possibly anxiety induced, but patient has cardiac history. Cardiac enzymes are negative. Appreciate cardiology recommendations. 12. Acute kidney injury: Improved. Likely secondary to diuresis, vancomycin. Discharge Planning Possible discharge home tomorrow pending clinical improvement. Problem Qualifiers (1) CHF (congestive heart failure): Qualified Code: I50.23 - Acute on chronic systolic congestive heart failure Ney Rey MD February 02, 2017 08:18
[2017-02-02] MEDS: THIAMINE HCL 100 MG TAB PO SCH (09:10)
[2017-02-02] MEDS: POTASSIUM CHLORIDE 20 MEQ CONTROLLED RELEASE TAB PO SCH ×2 (09:10→21:16)
[2017-02-02] MEDS: FUROSEMIDE 40 MG TAB PO SCH ×2 (09:10→17:42)
[2017-02-02] MEDS: guaiFENesin E.R. 600 MG TAB PO SCH ×2 (09:10→21:15)
[2017-02-02] MEDS: ASPIRIN EC 81 MG TABEC PO SCH (09:10)
[2017-02-02] MEDS: LISINOPRIL 5 MG TAB PO SCH (09:10)
[2017-02-02] MEDS: METOPROLOL TARTRATE 25 MG TAB PO SCH ×2 (09:10→21:16)
[2017-02-02] MEDS: ATORVASTATIN 20 MG TAB PO SCH (09:10)
[2017-02-02] MEDS: SODIUM CHLORIDE 0.9% FLUSH 10 ML FLUSH IV FLUSH SCH ×2 (09:11→21:16)
[2017-02-02] MEDS: BUDESONIDE-FORMOTEROL 160/4.5 MCG INHALER INH SCH ×2 (09:11→21:14)
--- NOTE | 2017-02-02 10:27 | PD.CARD.PN ---
Subjective Subjective Remarks No overnight events SOB with exertion Objective Medications Current Medications Medications (Trade) Dose Ordered Sig/Justyna Route Start Time Stop Time Status Last Admin (Symbicort 160-4.5 Inh) 2 puff Q12HR INH 01/28/17 09:00 02/02/17 09:11 (Mucinex Er) 600 mg BID PO 01/28/17 09:00 02/02/17 09:10 (D50w (Vial) Inj) 50 ml UNSCH PRN IV 01/28/17 00:45 (Glucagon Inj) 1 mg UNSCH PRN OTHER 01/28/17 00:45 (NS Flush) 2 ml UNSCH PRN IV FLUSH 01/28/17 00:45 01/31/17 12:00 (NS Flush) 2 ml BID IV FLUSH 01/28/17 09:00 02/02/17 09:11 (Zofran Inj) 4 mg Q6H PRN IVP 01/28/17 00:45 (Dulcolax Supp) 10 mg DAILY PRN RECTAL 01/28/17 00:45 (Tylenol) 650 mg Q6H PRN PO 01/28/17 00:45 (Roxicodone) 10 mg Q4H PRN PO 01/28/17 00:45 (Roxicodone) 5 mg Q4H PRN PO 01/28/17 00:45 (Vitamin B1) 100 mg DAILY PO 01/28/17 09:00 02/02/17 09:10 (Romazicon Inj) 0.2 mg Q1M PRN IV PUSH 01/28/17 00:45 (Ativan) 1 mg Q4H PRN PO 01/28/17 00:45 (Ativan Inj) 1 mg Q4H PRN IV PUSH 01/28/17 00:45 (Ativan) 2 mg Q2H PRN PO 01/28/17 00:45 (Ativan Inj) 2 mg Q2H PRN IV PUSH 01/28/17 00:45 (Ativan Inj) 2 mg Q1H PRN IV PUSH 01/28/17 00:45 (Ativan Inj) 2 mg Q15M PRN IV PUSH 01/28/17 00:45 (Haldol Inj) 2 mg Q15M PRN IM 01/28/17 00:45 (Xanax) 0.5 mg BID PRN PO 01/28/17 00:45 (Ecotrin Ec) 81 mg DAILY PO 01/28/17 09:00 02/02/17 09:10 Metoprolol Tartrate 12.5 mg 12.5 mg BID PO 01/28/17 09:00 02/02/17 09:10 (Zosyn 3.375 Gm Premix) 50 ml @ 100 mls/hr Q6HR IV 01/28/17 06:00 02/02/17 05:49 (Nitrostat Sl) 0.4 mg Q5M PRN SL 01/28/17 22:45 (Prinivil) 5 mg DAILY PO 01/29/17 09:00 02/02/17 09:10 (Lipitor) 20 mg DAILY PO 01/29/17 09:00 02/02/17 09:10 (KCl) 20 meq BID PO 02/01/17 09:00 02/02/17 09:10 (Lasix) 40 mg BID@09,18 PO 02/01/17 18:00 02/02/17 09:10 (SoluMEDROL INJ) 40 mg BID IV PUSH 02/02/17 21:00 Vital Signs / I&O Vital Signs Date Time Temp Pulse Resp B/P Pulse Ox O2 Delivery O2 Flow Rate FiO2 02/02/17 08:00 97.6 88 18 113/75 94 02/02/17 07:29 92 21 02/02/17 07:00 89 02/02/17 06:00 71 02/02/17 05:00 78 02/02/17 04:40 100 35 02/02/17 04:30 68 02/02/17 03:00 100 Bi-Pap 02/02/17 03:00 98.4 82 16 116/75 100 02/02/17 03:00 72 02/02/17 02:05 69 02/02/17 01:00 76 02/02/17 00:00 74 02/01/17 23:45 99 35 02/01/17 23:00 100 Bi-Pap 02/01/17 23:00 98.6 78 16 104/60 100 02/01/17 23:00 80 02/01/17 22:00 82 02/01/17 21:00 82 02/01/17 20:06 99 02/01/17 20:00 84 02/01/17 19:00 99 Nasal Cannula 2.00 02/01/17 19:00 90 02/01/17 19:00 97.9 84 18 110/65 99 02/01/17 18:26 77 02/01/17 17:00 76 02/01/17 16:07 87 02/01/17 15:25 96 Room Air 02/01/17 15:03 97.6 84 16 122/84 96 02/01/17 15:00 81 02/01/17 14:00 84 02/01/17 13:00 78 02/01/17 12:00 78 02/01/17 11:44 96 02/01/17 11:15 98.2 84 19 118/72 95 02/01/17 11:00 77 02/01/17 11:00 95 Room Air I/O 02/01/17 02/01/17 02/01/17 02/02/17 02/02/17 02/02/17 07:00 15:00 23:00 07:00 15:00 23:00 Intake Total 480 ml 1060 ml 410 ml Output Total 400 ml 1850 ml 900 ml Balance 80 ml -790 ml -490 ml Intake Oral 480 ml 960 ml 360 ml IV Total 100 ml 50 ml Output Urine Total 400 ml 1850 ml 900 ml # Bowel Movements 1 Physical Exam GENERAL: Well-nourished, well-developed patient. SKIN: Warm and dry. HEAD: Normocephalic. EYES: No scleral icterus. No injection or drainage. NECK: Supple, trachea midline. No JVD or lymphadenopathy. CARDIOVASCULAR: Regular rate and rhythm without murmurs, gallops, or rubs. RESPIRATORY: Breath sounds equal bilaterally. No accessory muscle use. GASTROINTESTINAL: Abdomen soft, non-tender, nondistended. EXTREMITIES: No cyanosis, or edema. NEUROLOGICAL: Awake, alert, and oriented x 3. Non-focal. Laboratory Laboratory Tests Test 02/02/17 04:35 White Blood Count 9.1 TH/MM3 Red Blood Count 3.38 MIL/MM3 Hemoglobin 11.1 GM/DL Hematocrit 33.4 % Mean Corpuscular Volume 98.7 FL Mean Corpuscular Hemoglobin 32.8 PG Mean Corpuscular Hemoglobin 33.3 % Concent Red Cell Distribution Width 14.2 % Platelet Count 195 TH/MM3 Mean Platelet Volume 8.6 FL Neutrophils (%) (Auto) 75.1 % Lymphocytes (%) (Auto) 15.5 % Monocytes (%) (Auto) 8.7 % Eosinophils (%) (Auto) 0.6 % Basophils (%) (Auto) 0.1 % Neutrophils # (Auto) 6.9 TH/MM3 Lymphocytes # (Auto) 1.4 TH/MM3 Monocytes # (Auto) 0.8 TH/MM3 Eosinophils # (Auto) 0.1 TH/MM3 Basophils # (Auto) 0.0 TH/MM3 CBC Comment DIFF FINAL Differential Comment Sodium Level 143 MEQ/L Potassium Level 4.0 MEQ/L Chloride Level 107 MEQ/L Carbon Dioxide Level 27.3 MEQ/L Anion Gap 9 MEQ/L Blood Urea Nitrogen 36 MG/DL Creatinine 0.93 MG/DL Estimat Glomerular Filtration 62 ML/MIN Rate Random Glucose 131 MG/DL Calcium Level 8.4 MG/DL Imaging Last Impressions Chest X-Ray 02/01/17 0000 Signed Impressions: Service Date/Time: Wednesday, February 01, 2017 19:47 - CONCLUSION: Small effusions versus scarring. John Gilmore MD Assessment and Plan Problem List: (1) Ischemic cardiomyopathy Assessment and Plan: Acute on chronic systolic failure. Continue with medical management in light of her clean coronaries two years ago and current diagnosis also of pneumonia. COPD - this will be managed by the primary team. Consider d/ c om oxygen in light of her COPD and cardiomyopathy (2) Hypertension (3) CAD S/P percutaneous coronary angioplasty (4) Tobacco abuse (5) COPD exacerbation Kyle George MD February 02, 2017 10:27
--- NOTE | 2017-02-02 16:22 | HHI.PR ---
Subjective Remarks Alert up in chair no SOB at restO2 sat adequate RA Objective Vital Signs Date Time Temp Pulse Resp B/P Pulse Ox O2 Delivery O2 Flow Rate FiO2 02/02/17 15:00 81 02/02/17 14:00 86 02/02/17 13:00 91 02/02/17 12:00 86 02/02/17 12:00 95 Room Air 02/02/17 12:00 97.8 83 18 115/72 95 02/02/17 11:00 78 02/02/17 10:00 80 02/02/17 09:00 82 02/02/17 08:00 94 Room Air 02/02/17 08:00 88 02/02/17 08:00 97.6 88 18 113/75 94 02/02/17 07:29 92 21 02/02/17 07:00 89 02/02/17 06:00 71 02/02/17 05:00 78 02/02/17 04:40 100 35 02/02/17 04:30 68 02/02/17 03:00 100 Bi-Pap 02/02/17 03:00 98.4 82 16 116/75 100 02/02/17 03:00 72 02/02/17 02:05 69 02/02/17 01:00 76 02/02/17 00:00 74 02/01/17 23:45 99 35 02/01/17 23:00 100 Bi-Pap 02/01/17 23:00 98.6 78 16 104/60 100 02/01/17 23:00 80 02/01/17 22:00 82 02/01/17 21:00 82 02/01/17 20:06 99 02/01/17 20:00 84 02/01/17 19:00 99 Nasal Cannula 2.00 02/01/17 19:00 90 02/01/17 19:00 97.9 84 18 110/65 99 02/01/17 18:26 77 02/01/17 17:00 76 I/O 02/01/17 02/01/17 02/01/17 02/02/17 02/02/17 02/02/17 06:59 14:59 22:59 06:59 14:59 22:59 Intake Total 480 ml 1060 ml 410 ml Output Total 400 ml 1850 ml 900 ml Balance 80 ml -790 ml -490 ml Intake Oral 480 ml 960 ml 360 ml IV Total 100 ml 50 ml Output Urine Total 400 ml 1850 ml 900 ml # Bowel Movements 1 Result Diagram: 02/02/1743402/02/17434 Objective Remarks GENERAL: SKIN: Warm and dry. HEAD: Atraumatic. Normocephalic. EYES: Pupils equal and round. No scleral icterus. No injection or drainage. ENT: No nasal bleeding or discharge. Mucous membranes pink and moist. NECK: Trachea midline. No JVD. CARDIOVASCULAR: Regular rate and rhythm. RESPIRATORY: No accessory muscle use. Clear to auscultation. Breath sounds equal bilaterally. GASTROINTESTINAL: Abdomen soft, non-tender, nondistended. Hepatic and splenic margins not palpable. MUSCULOSKELETAL: Extremities without clubbing, cyanosis, or edema. No obvious deformities. NEUROLOGICAL: Awake and alert. No obvious cranial nerve deficits. Motor grossly within normal limits. Five out of 5 muscle strength in the arms and legs. Normal speech. PSYCHIATRIC: Appropriate mood and affect; insight and judgment normal. Assessment and Plan Assessment and Plan assessment Respiratory failure , resolved CHF , improved COPD , on BD therapy plan: contiue bronchodilators therapy for CHF per cardiology increase activity Humera Grubbs MD February 02, 2017 16:22
[2017-02-03] VITALS (16 sets, daily range): BP systolic 111–123; BP diastolic 71–74; PULSE 66–92; RESP 16–20; TEMP 97.6–98.3; O2SAT 92–99
[2017-02-03] MEDS: PIPERACIL-TAZO 3.375 GM PREMIX 50 ML IV SCH ×2 (06:19→12:00)
[2017-02-03] MEDS: INSULIN ASPART SUPPLEMENTAL SCALE SQ SCH ×2 (06:25→11:00)
[2017-02-03] MEDS: RESP: ALBUTEROL 2.5 MG/IPRATROPIUM 0.5 MG NEB (SCH) NEB ×2 (07:33→11:27)
[2017-02-03] MEDS: THIAMINE HCL 100 MG TAB PO SCH (08:32)
[2017-02-03] MEDS: LISINOPRIL 5 MG TAB PO SCH (08:32)
[2017-02-03] MEDS: SODIUM CHLORIDE 0.9% FLUSH 10 ML FLUSH IV FLUSH SCH (08:32)
[2017-02-03] MEDS: BUDESONIDE-FORMOTEROL 160/4.5 MCG INHALER INH SCH (08:32)
[2017-02-03] MEDS: POTASSIUM CHLORIDE 20 MEQ CONTROLLED RELEASE TAB PO SCH (08:33)
[2017-02-03] MEDS: ASPIRIN EC 81 MG TABEC PO SCH (08:33)
[2017-02-03] MEDS: methylPREDNISolone SOD SUCC 40 MG/1 ML VIAL IV PUSH SCH (08:33)
[2017-02-03] MEDS: ATORVASTATIN 20 MG TAB PO SCH (08:33)
[2017-02-03] MEDS: METOPROLOL TARTRATE 25 MG TAB PO SCH (08:33)
[2017-02-03] MEDS: guaiFENesin E.R. 600 MG TAB PO SCH (08:34)
[2017-02-03] MEDS: FUROSEMIDE 40 MG TAB PO SCH (08:34)
--- NOTE | 2017-02-03 09:23 | HHI.PR ---
Subjective Remarks Alert up in chair no SOB at restO2 sat adequate RA Objective Vital Signs Date Time Temp Pulse Resp B/P Pulse Ox O2 Delivery O2 Flow Rate FiO2 02/03/17 08:00 73 02/03/17 07:34 92 21 02/03/17 07:00 77 02/03/17 06:00 66 02/03/17 05:07 68 02/03/17 04:00 74 02/03/17 03:00 97 21 02/03/17 03:00 76 02/03/17 03:00 97.6 90 16 111/72 98 02/03/17 02:00 75 02/03/17 01:00 80 02/03/17 00:10 99 21 02/03/17 00:00 84 02/02/17 23:00 97.9 93 16 136/80 96 02/02/17 23:00 84 02/02/17 22:00 84 02/02/17 21:00 90 02/02/17 20:02 96 21 02/02/17 20:00 80 02/02/17 19:00 96 Room Air 02/02/17 19:00 98.1 90 18 136/86 96 02/02/17 19:00 82 02/02/17 18:00 80 02/02/17 17:00 77 02/02/17 16:00 97.8 87 20 119/71 97 02/02/17 16:00 97 Room Air 02/02/17 16:00 104 02/02/17 15:00 81 02/02/17 14:00 86 02/02/17 13:00 91 02/02/17 12:00 86 02/02/17 12:00 95 Room Air 02/02/17 12:00 97.8 83 18 115/72 95 02/02/17 11:00 78 02/02/17 10:00 80 I/O 02/02/17 02/02/17 02/02/17 02/03/17 02/03/17 02/03/17 07:00 15:00 23:00 07:00 15:00 23:00 Intake Total 410 ml 770 ml 580 ml Output Total 900 ml 2300 ml 2350 ml Balance -490 ml -1530 ml -1770 ml Intake Oral 360 ml 720 ml 480 ml IV Total 50 ml 50 ml 100 ml Output Urine Total 900 ml 2300 ml 2350 ml # Bowel Movements 1 0 Result Diagram: 02/02/1743402/02/17434 Objective Remarks GENERAL: SKIN: Warm and dry. HEAD: Atraumatic. Normocephalic. EYES: Pupils equal and round. No scleral icterus. No injection or drainage. ENT: No nasal bleeding or discharge. Mucous membranes pink and moist. NECK: Trachea midline. No JVD. CARDIOVASCULAR: Regular rate and rhythm. RESPIRATORY: No accessory muscle use. Clear to auscultation. Breath sounds equal bilaterally. GASTROINTESTINAL: Abdomen soft, non-tender, nondistended. Hepatic and splenic margins not palpable. MUSCULOSKELETAL: Extremities without clubbing, cyanosis, or edema. No obvious deformities. NEUROLOGICAL: Awake and alert. No obvious cranial nerve deficits. Motor grossly within normal limits. Five out of 5 muscle strength in the arms and legs. Normal speech. PSYCHIATRIC: Appropriate mood and affect; insight and judgment normal. Assessment and Plan Assessment and Plan assessment Respiratory failure , resolved CHF , improved COPD , on BD therapy plan: contiue bronchodilators therapy for CHF per cardiology increase activity Humera Grubbs MD February 03, 2017 09:23
[2017-02-03] MEDS ORDERED: ATOR20TA15 PO (13:12)
[2017-02-03] MEDS ORDERED: FURO40TA PO (13:12)
[2017-02-03] MEDS ORDERED: SYMB160A INH (13:12)
--- NOTE | 2017-02-03 13:12 | HHI.DS ---
Discharge Summary Admission Date January 28, 2017 at 00:37 Discharge Date: February 03, 2017 Admitting Diagnosis Resp Distress, COPD, CHF (1) COPD exacerbation ICD Code: J44.1 (2) PNA (pneumonia) ICD Code: J18.9 Diagnosis: Principal (3) Hyperglycemia ICD Code: R73.9 Diagnosis: Principal (4) Hypokalemia ICD Code: E87.6 (5) Alcohol abuse ICD Code: F10.10 Diagnosis: Secondary (6) Tobacco abuse ICD Code: Z72.0 Diagnosis: Secondary (7) CHF exacerbation ICD Code: I50.9 Diagnosis: Principal (8) Acute respiratory failure with hypoxemia ICD Code: J96.01 Diagnosis: Principal (9) Ischemic cardiomyopathy ICD Code: I25.5 Diagnosis: Secondary (10) Hypertension ICD Code: I10 Diagnosis: Secondary Procedures None Brief History - From Admission This is a 56-year-old female with a PMH of HTN, COPD, CVA, CAD, CHF (Echo w/ EF 40-45%), Alcohol Abuse and Tobacco Abuse who was brought to the ER by EMS secondary to SOB. Upon EMS arrival, pt noted to have O2 sat 74% on RA, placed on CPAP by EMS, s/p DuoNeb, Solu-Medrol and Lasix IV en route. On arrival, BP 150/79, HR 107, RR 28, O2 sat 98% on CPAP, Afebrile. WBC 12.5. J+ 3.2. BS 278. BNP 198. Trop negative. U/a negative. CXR w/ mild failure, possible underlying PNA. S/p Blood Cultures, Vanc/Zosyn in ER. Currently weaning off BIPAP. CBC/BMP: 02/02/17 0435 02/02/17 0435 Significant Findings Laboratory Tests Test 02/01/17 02/02/17 04:10 04:35 Chloride Level 109 MEQ/L (98-107) Blood Urea Nitrogen 33 MG/DL (7-18) 36 MG/DL (7-18) Estimat Glomerular Filtration 61 ML/MIN (>89) 62 ML/MIN (>89) Rate Random Glucose 146 MG/DL 131 MG/DL (74-106) (74-106) Calcium Level 8.2 MG/DL 8.4 MG/DL (8.5-10.1) (8.5-10.1) Red Blood Count 3.38 MIL/MM3 (4.00-5.30) Hemoglobin 11.1 GM/DL (11.6-15.3) Hematocrit 33.4 % (35.0-46.0) Neutrophils (%) (Auto) 75.1 % (16.0-70.0) Monocytes (%) (Auto) 8.7 % (0.0-8.0) Imaging Last Impressions Chest X-Ray 02/01/17 0000 Signed Impressions: Service Date/Time: Wednesday, February 01, 2017 19:47 - CONCLUSION: Small effusions versus scarring. John Gilmore MD PE at Discharge General: No acute distress. Heart: Regular rate and rhythm. No murmur. Lungs: CTA B/L Abdomen: Soft, nontender, nondistended. Extremities: Trace right lower extremity edema. SCDs. Psych: Alert and oriented. Pt update on day of discharge f/u for acute respiratory failure patient had no complaints. She stated she wants to go home now. Denied any SOB, CP, palpitations, or lightheadedness/dizziness. she remained afebrile. Hospital Course 1. COPD, chronic respiratory failure with acute exacerbation with hypoxia -third helper consulted. she was put on IV antibiotics and solumedrol. -on BiPAP in which she was weaned off. she was also weaned off oxygen. -patient was back to her baseline on discharge. 2. Acute exacerbation of chronic systolic congestive heart failure: -patient was put on lasix and summer clerk was consulted. - Echocardiogram shows EF 25-30% with diffuse hypokinesis. Patient has AICD in place. -she was put on low dose beta tomas, NEIDA inhibitor. Fluid restriction. 3. Questionable pneumonia: -Chest x-ray shows findings consistent with heart failure. Leukocytosis has resolved. Patient has remained afebrile. -empirically treated with vancomycin and zosyn. later vancomycin d/c due to renal insufficiency. 4. Hypoxia: Multifactorial. Secondary to COPD, CHF, pneumonia. 5. Hyperglycemia: Patient denies history of diabetes. Hemoglobin A1c is 5.0. Monitor Accu-Cheks and cover with sliding scale insulin. Glucose likely elevated due to steroids. 6. Hypokalemia: Improved. Continue potassium supplementation. 7. Alcohol abuse: Continue folic acid, thiamine, multivitamin. CIWA protocol ordered, but patient not requiring Ativan. Seizure/withdrawal precautions. 8. Tobacco abuse: Counseled to quit smoking. 10. Sleep apnea: Uses CPAP at home. On BiPAP at night as inpatient. 11. Chest pain: Patient having intermittent chest pressure. Possibly anxiety induced, but patient has cardiac history. Cardiac enzymes are negative. Appreciate cardiology recommendations. 12. Acute kidney injury: -likely due to vancomycin. -improved after vancomycin d.c - Improved. Likely secondary to diuresis, vancomycin. -then resolved. Pt Condition on Discharge: Good Discharge Disposition: Discharge Home Discharge Time: <= 30 minutes Discharge Instructions DIET: Follow Instructions for: Heart Healthy Diet Activities you can perform: Regular-No Restrictions Follow up Referrals: Cardiology - 2 Weeks PCP Follow-up - 1 Year Pulmonology - 2 Weeks New Medications: Atorvastatin (Atorvastatin) 20 Mg Tab 20 MG PO DAILY high cholesterol #30 Ref 0 TAB Budesonide-Formoterol Inh (Symbicort Inh) 160-4.5 Mcg/Act Aero 2 PUFF INH Q12HR COPD #1 Ref 0 INHALER Furosemide (Furosemide) 40 Mg Tab 40 MG PO BID@,18 congestive heart failure #60 Ref 0 TAB Continued Medications: Albuterol 8.5 GM Inh (Proair Hfa 8.5 GM Inh) 90 Mcg/Act Aer 2 PUFF INH Q4-6H 108 mcg/actuation PRN SHORTNESS OF BREATH #1 Ref 0 INHALER Alprazolam (Alprazolam) 0.5 Mg Tab 0.5 MG PO BID PRN ANXIETY Ref [address] (Aspirin EC) 81 Mg Tabdr 81 MG PO DAILY Ref 0 TAB Enalapril (Enalapril) 5 Mg Tab 5 MG PO DAILY #30 Ref 0 TAB Folic Acid (Folate) 1 Mg Tab 1 MG PO DAILY Nutritional Supplement Ref 0 TAB Metoprolol Tartrate (Metoprolol Tartrate) 25 Mg Tab 12.5 MG PO BID #60 Ref 0 TAB Potassium Chloride ER (K-Tab) 20 Meq Tab 20 MEQ PO DAILY Electrolyte Replacement #30 Ref 0 TAB Thiamine (Thiamine) 100 Mg Tab 100 MG PO DAILY Nutritional Supplement Ref 0 TAB Discontinued Medications: Fluticasone-Salmeterol Inh (Advair Diskus Inh) 250-50 Mcg/Blist Aer 1 PUFF INH BID Rinse mouth after use. #1 Ref 0 INHALER Furosemide (Lasix) 20 Mg Tab 20 MG PO BID #60 Ref 0 TAB Sarah Gibson MD February 03, 2017 13:12
--- NOTE | 2017-02-03 13:12 | HHI.DCPOC ---
Discharge Care Plan Diagnosis: (1) COPD exacerbation (2) CHF (congestive heart failure) Goals to Promote Your Health * To prevent worsening of your condition and complications * To maintain your health at the optimal level Directions to Meet Your Goals Take your medications as prescribed Follow your dietary instruction Follow activity as directed Keep your appointments as scheduled Take your immunizations and boosters as scheduled If your symptoms worsen call your PCP, if no PCP go to Urgent Care Center or Emergency Room Smoking is Dangerous to Your Health. Avoid second hand smoke Call the 24-hour hour crisis hotline for domestic abuse at Sarah Gibson MD February 03, 2017 13:12
--- NOTE | 2017-02-03 13:47 | PD.CARD.PN ---
Subjective Subjective Remarks No CV complaints Objective Medications Current Medications Medications (Trade) Dose Ordered Sig/Justyna Route Start Time Stop Time Status Last Admin (Symbicort 160-4.5 Inh) 2 puff Q12HR INH 01/28/17 09:00 02/03/17 08:32 (Mucinex Er) 600 mg BID PO 01/28/17 09:00 02/03/17 08:34 (D50w (Vial) Inj) 50 ml UNSCH PRN IV 01/28/17 00:45 (Glucagon Inj) 1 mg UNSCH PRN OTHER 01/28/17 00:45 (NS Flush) 2 ml UNSCH PRN IV FLUSH 01/28/17 00:45 01/31/17 12:00 (NS Flush) 2 ml BID IV FLUSH 01/28/17 09:00 02/03/17 08:32 (Zofran Inj) 4 mg Q6H PRN IVP 01/28/17 00:45 (Dulcolax Supp) 10 mg DAILY PRN RECTAL 01/28/17 00:45 (Tylenol) 650 mg Q6H PRN PO 01/28/17 00:45 (Roxicodone) 10 mg Q4H PRN PO 01/28/17 00:45 (Roxicodone) 5 mg Q4H PRN PO 01/28/17 00:45 (Vitamin B1) 100 mg DAILY PO 01/28/17 09:00 02/03/17 08:32 (Romazicon Inj) 0.2 mg Q1M PRN IV PUSH 01/28/17 00:45 (Ativan) 1 mg Q4H PRN PO 01/28/17 00:45 (Ativan Inj) 1 mg Q4H PRN IV PUSH 01/28/17 00:45 (Ativan) 2 mg Q2H PRN PO 01/28/17 00:45 (Ativan Inj) 2 mg Q2H PRN IV PUSH 01/28/17 00:45 (Ativan Inj) 2 mg Q1H PRN IV PUSH 01/28/17 00:45 (Ativan Inj) 2 mg Q15M PRN IV PUSH 01/28/17 00:45 (Haldol Inj) 2 mg Q15M PRN IM 01/28/17 00:45 (Xanax) 0.5 mg BID PRN PO 01/28/17 00:45 (Ecotrin Ec) 81 mg DAILY PO 01/28/17 09:00 02/03/17 08:33 Metoprolol Tartrate 12.5 mg 12.5 mg BID PO 01/28/17 09:00 02/03/17 08:33 (Zosyn 3.375 Gm Premix) 50 ml @ 100 mls/hr Q6HR IV 01/28/17 06:00 02/03/17 06:19 (Nitrostat Sl) 0.4 mg Q5M PRN SL 01/28/17 22:45 (Prinivil) 5 mg DAILY PO 01/29/17 09:00 02/03/17 08:32 (Lipitor) 20 mg DAILY PO 01/29/17 09:00 02/03/17 08:33 (KCl) 20 meq BID PO 02/01/17 09:00 02/03/17 08:33 (Lasix) 40 mg BID@09,18 PO 02/01/17 18:00 02/03/17 08:34 (SoluMEDROL INJ) 40 mg BID IV PUSH 02/02/17 21:00 02/03/17 08:33 Vital Signs / I&O Vital Signs Date Time Temp Pulse Resp B/P Pulse Ox O2 Delivery O2 Flow Rate FiO2 02/03/17 13:00 92 02/03/17 12:00 82 02/03/17 12:00 98.3 82 20 113/74 95 02/03/17 11:00 81 02/03/17 10:00 76 02/03/17 09:00 86 02/03/17 08:00 73 02/03/17 08:00 97.6 91 20 123/71 96 02/03/17 07:34 92 21 02/03/17 07:00 77 02/03/17 06:00 66 02/03/17 05:07 68 02/03/17 04:00 74 02/03/17 03:00 97 21 02/03/17 03:00 76 02/03/17 03:00 97.6 90 16 111/72 98 02/03/17 02:00 75 02/03/17 01:00 80 02/03/17 00:10 99 21 02/03/17 00:00 84 02/02/17 23:00 97.9 93 16 136/80 96 02/02/17 23:00 84 02/02/17 22:00 84 02/02/17 21:00 90 02/02/17 20:02 96 21 02/02/17 20:00 80 02/02/17 19:00 96 Room Air 02/02/17 19:00 98.1 90 18 136/86 96 02/02/17 19:00 82 02/02/17 18:00 80 02/02/17 17:00 77 02/02/17 16:00 97.8 87 20 119/71 97 02/02/17 16:00 97 Room Air 02/02/17 16:00 104 02/02/17 15:00 81 02/02/17 14:00 86 I/O 02/02/17 02/02/17 02/02/17 02/03/17 02/03/17 02/03/17 07:00 15:00 23:00 07:00 15:00 23:00 Intake Total 410 ml 770 ml 580 ml Output Total 900 ml 2300 ml 2350 ml Balance -490 ml -1530 ml -1770 ml Intake Oral 360 ml 720 ml 480 ml IV Total 50 ml 50 ml 100 ml Output Urine Total 900 ml 2300 ml 2350 ml # Bowel Movements 1 0 Physical Exam GENERAL: Well-nourished, well-developed patient. SKIN: Warm and dry. HEAD: Normocephalic. EYES: No scleral icterus. No injection or drainage. NECK: Supple, trachea midline. No JVD or lymphadenopathy. CARDIOVASCULAR: Regular rate and rhythm without murmurs, gallops, or rubs. RESPIRATORY: Breath sounds equal bilaterally. No accessory muscle use. GASTROINTESTINAL: Abdomen soft, non-tender, nondistended. EXTREMITIES: No cyanosis, or edema. NEUROLOGICAL: Awake, alert, and oriented x 3. Non-focal. Laboratory Current Medications Medications (Trade) Dose Ordered Sig/Justyna Route Start Time Stop Time Status Last Admin (Symbicort 160-4.5 Inh) 2 puff Q12HR INH 01/28/17 09:00 02/03/17 08:32 (Mucinex Er) 600 mg BID PO 01/28/17 09:00 02/03/17 08:34 (D50w (Vial) Inj) 50 ml UNSCH PRN IV 01/28/17 00:45 (Glucagon Inj) 1 mg UNSCH PRN OTHER 01/28/17 00:45 (NS Flush) 2 ml UNSCH PRN IV FLUSH 01/28/17 00:45 01/31/17 12:00 (NS Flush) 2 ml BID IV FLUSH 01/28/17 09:00 02/03/17 08:32 (Zofran Inj) 4 mg Q6H PRN IVP 01/28/17 00:45 (Dulcolax Supp) 10 mg DAILY PRN RECTAL 01/28/17 00:45 (Tylenol) 650 mg Q6H PRN PO 01/28/17 00:45 (Roxicodone) 10 mg Q4H PRN PO 01/28/17 00:45 (Roxicodone) 5 mg Q4H PRN PO 01/28/17 00:45 (Vitamin B1) 100 mg DAILY PO 01/28/17 09:00 02/03/17 08:32 (Romazicon Inj) 0.2 mg Q1M PRN IV PUSH 01/28/17 00:45 (Ativan) 1 mg Q4H PRN PO 01/28/17 00:45 (Ativan Inj) 1 mg Q4H PRN IV PUSH 01/28/17 00:45 (Ativan) 2 mg Q2H PRN PO 01/28/17 00:45 (Ativan Inj) 2 mg Q2H PRN IV PUSH 01/28/17 00:45 (Ativan Inj) 2 mg Q1H PRN IV PUSH 01/28/17 00:45 (Ativan Inj) 2 mg Q15M PRN IV PUSH 01/28/17 00:45 (Haldol Inj) 2 mg Q15M PRN IM 01/28/17 00:45 (Xanax) 0.5 mg BID PRN PO 01/28/17 00:45 (Ecotrin Ec) 81 mg DAILY PO 01/28/17 09:00 02/03/17 08:33 Metoprolol Tartrate 12.5 mg 12.5 mg BID PO 01/28/17 09:00 02/03/17 08:33 (Zosyn 3.375 Gm Premix) 50 ml @ 100 mls/hr Q6HR IV 01/28/17 06:00 02/03/17 06:19 (Nitrostat Sl) 0.4 mg Q5M PRN SL 01/28/17 22:45 (Prinivil) 5 mg DAILY PO 01/29/17 09:00 02/03/17 08:32 (Lipitor) 20 mg DAILY PO 01/29/17 09:00 02/03/17 08:33 (KCl) 20 meq BID PO 02/01/17 09:00 02/03/17 08:33 (Lasix) 40 mg BID@09,18 PO 02/01/17 18:00 02/03/17 08:34 (SoluMEDROL INJ) 40 mg BID IV PUSH 02/02/17 21:00 02/03/17 08:33 Imaging Last Impressions Chest X-Ray 02/01/17 0000 Signed Impressions: Service Date/Time: Wednesday, February 01, 2017 19:47 - CONCLUSION: Small effusions versus scarring. John Gilmore MD Assessment and Plan Problem List: (1) Ischemic cardiomyopathy Assessment and Plan: Acute on chronic systolic failure. Continue with medical management in light of her clean coronaries two years ago and current diagnosis also of pneumonia. COPD - this will be managed by the primary team. Consider d/c om oxygen in light of her COPD and cardiomyopathy Stable from CV standpoint Sign off (2) Hypertension (3) CAD S/P percutaneous coronary angioplasty (4) Tobacco abuse (5) COPD exacerbation Kyle George MD February 03, 2017 13:47
--- NOTE | 2017-02-15 11:24 | RSPPFT ---
DATE OF PROCEDURE: 01/31/17 COMMENTS: Spirometry with FVC of 1.6, FEV1 of 1.2, FEV1/FVC ratio at 75%. A non-significant response to acutely inhaled bronchodilator. IMPRESSION: 1. Decreased flow rates. 2. No gross obstruction. Possible airways restriction. 3. If clinically warranted, lung volumes may be helpful.
== END 2017-02-03 14:14 | disposition home or self-care (01) | DRG 291 ==
LOC: NEPE 22:22 → NEDA 01-28 00:21 → OBSVTOIN 01-28 00:37 → HCIN 01-28 03:03 → HCIS 02-01 11:33 → HCIN 02-01 11:38
PROVIDERS: ADMIT Family Medicine; ATTEND Family Medicine
PROC: 5A09357 Assistance with Respiratory Ventilation, Less than 24 Consecutive Hours, Continuous Positive Airway Pressure (ICD-10-PCS; principal; 2017-01-28)
PROC: 0T9B70Z Drainage of Bladder with Drainage Device, Via Natural or Artificial Opening (ICD-10-PCS; 2017-01-28)
DX: I50.23 Acute on chronic systolic (congestive) heart failure (principal); J96.21 Acute and chronic respiratory failure with hypoxia; I47.2 Ventricular tachycardia; J18.9 Pneumonia, unspecified organism; J44.1 Chronic obstructive pulmonary disease with (acute) exacerbation; N17.9 Acute kidney failure, unspecified; I11.0 Hypertensive heart disease with heart failure; Z95.5 Presence of coronary angioplasty implant and graft; Z95.810 Presence of automatic (implantable) cardiac defibrillator; Z86.73 Personal history of transient ischemic attack (TIA), and cerebral infarction without residual deficits; I25.10 Atherosclerotic heart disease of native coronary artery without angina pectoris; M19.90 Unspecified osteoarthritis, unspecified site; E78.00 Pure hypercholesterolemia, unspecified; G47.30 Sleep apnea, unspecified; I25.2 Old myocardial infarction; F17.200 Nicotine dependence, unspecified, uncomplicated; E87.6 Hypokalemia; F10.10 Alcohol abuse, uncomplicated; R73.9 Hyperglycemia, unspecified; F41.9 Anxiety disorder, unspecified; T36.8X5A Adverse effect of other systemic antibiotics, initial encounter; Y92.239 Unspecified place in hospital as the place of occurrence of the external cause; T50.2X5A Adverse effect of carbonic-anhydrase inhibitors, benzothiadiazides and other diuretics, initial encounter; I25.5 Ischemic cardiomyopathy
CPT/HCPCS: 36600; 51702; 71010; 71020; 80048; 80053; 80202; 81001; 82550; 82552; 82565; 82805; 82948; 83036; 83735; 83880; 84484; 85025; 85610; 85730; 87040; 93005; 93306; 94002; 94003; 94060; 94620; 94640; 94664; 96365; J1815; J1940; J2543; J2920; J3370; J7050

== ENCOUNTER 2017-02-12 18:47 | Inpatient (IN) | payer OTHER ==
[2017-02-12] VITALS (7 sets, daily range): BP systolic 127–139; BP diastolic 76–78; PULSE 101–113; RESP 15–32; TEMP 98.4–98.9; O2SAT 95–100
[~2017-02-12] VITALS: Ht 160 cm; Wt 75.3 kg
[~2017-02-12 18:47] MED LIST changes: -ADVAI250I PO; +ALBUAER3 INH; +ASPI81TA11 PO; +ATOR20TA15 PO; -DUONI INH; -ECOT81TA2 PO; -ENAL5 PO; +ENAL5TAB PO; -FOLI1 PO; +FOLI1TAB4 PO; -FURO20 PO; +FURO40TA PO; -KCL20 PO; -METO25 PO; +METO25TA3 PO; +POTA1TAB4 PO; +SYMB160A INH
--- NOTE | 2017-02-12 19:29 | PD ---
HPI Chief Complaint: Respiratory Distress Time Seen by Provider: 19:19 Travel History International Travel<30 days: No Contact w/Intl Traveler<30days: No Traveled to known affect area: No History of Present Illness HPI 57-year-old female complains of shortness of breath. Patient was admitted January 28 and discharge February 03 for COPD exacerbation, hyperglycemia, hypokalemia, CHF exacerbation, acute respiratory failure and ischemic cardiomyopathy. Patient states that she has increasing shortness of breath since discharge. Patient states that the shortness breath is worse today. EMS was called. O2 saturation was found to be in the 80s at room air. Patient was given CPAP, albuterol treatment 2 and Solu-Medrol 125 mg IV on with the ED. Patient also has history of hypertension, CVA, CAD, tobacco abuse. Patient denies any recent coughing congestion fever chills. Patient denies any chest pain. Patient denies abdominal pain. Patient denies any nausea vomiting diarrhea. PFSH Past Medical History Arthritis: Yes Asthma: No Autoimmune Disease: No Anxiety: No Depression: Yes Heart Rhythm Problems: No Cancer: No Cardiac Catheterization: Yes Cardiovascular Problems: Yes (ND, STENT, CHF, ) High Cholesterol: Yes Chest Pain: Yes Congestive Heart Failure: Yes COPD: Yes Cerebrovascular Accident: Yes Coronary Artery Disease: Yes Diabetes: No Diminished Hearing: No Endocrine: No GERD: No Glaucoma: No Genitourinary: No Headaches: No Hepatitis: No Hiatal Hernia: No Hypertension: Yes Immune Disorder: No Implanted Vascular Access Dvce: No Kidney Stones: No Musculoskeletal: Yes (BILATERAL CARPAL TUNNEL SYNDROME) Neurologic: Yes Psychiatric: No Reproductive: No Respiratory: Yes (COPD) Myocardial Infarction: Yes Renal Failure: No Seizures: No Sleep Apnea: Yes (questionable) Thyroid Disease: No Ulcer: No PNEUMOCCOCAL Vaccine (Year): 3 ?: Not Menopausal: Yes Past Surgical History Abdominal Surgery: No AICD: Yes Body Medical Devices: CARDIAC STENTS Cardiac Surgery: Yes (stents x 1) Coronary Artery Bypass Graft: No Coronary Stent: Yes (x1) Ear Surgery: No Endocrine Surgery: No Eye Surgery: No Genitourinary Surgery: No Gynecologic Surgery: No Oral Surgery: No Pacemaker: Yes Thoracic Surgery: No Tonsillectomy: Yes Other Surgery: Yes (ICD PLACEMENT 2014) Social History Alcohol Use: Yes (DAILY) Tobacco Use: Yes (1 PPD) Substance Use: No Allergies-Medications (Allergen,Severity, Reaction): Coded Allergies: No Known Allergies (Verified , 01/27/17) Reported Meds & Prescriptions Reported Meds & Active Scripts Active Furosemide 40 Mg Tab 40 Mg PO BID@ Symbicort Inh (Budesonide/Formoterol Fumarate) 160-4.5 Mcg/Act Aero 2 Puff INH Q12HR Atorvastatin (Atorvastatin Calcium) 20 Mg Tab 20 Mg PO DAILY Reported Alprazolam 0.5 Mg Tab 0.5 Mg PO BID PRN Aspirin EC (Aspirin) 81 Mg Tabdr 81 Mg PO DAILY Enalapril (Enalapril Maleate) 5 Mg Tab 5 Mg PO DAILY Metoprolol Tartrate 25 Mg Tab 12.5 Mg PO BID K-Tab (Potassium Chloride) 20 Meq Tab 20 Meq PO DAILY Proair Hfa 8.5 GM Inh (Albuterol Sulfate) 90 Mcg/Act Aer 2 Puff INH Q4-6H PRN 108 mcg/actuation Review of Systems General / Constitutional: No: Fever Eyes: No: Visual changes HENT: No: Headaches Cardiovascular: No: Chest Pain or Discomfort Respiratory: Positive: Shortness of Breath Gastrointestinal: No: Abdominal Pain Genitourinary: No: Dysuria Musculoskeletal: No: Pain Skin: No Rash Neurologic: No: Weakness Psychiatric: No: Depression Endocrine: No: Polydipsia Hematologic/Lymphatic: No: Easy Bruising Physical Exam Narrative GENERAL: Well-nourished, well-developed patient. SKIN: Focused skin assessment warm/dry. HEAD: Normocephalic. EYES: No scleral icterus. No injection or drainage. NECK: Supple, trachea midline. No JVD or lymphadenopathy. CARDIOVASCULAR: Regular rate and rhythm without murmurs, gallops, or rubs. RESPIRATORY: Breath sounds equal bilaterally. No accessory muscle use. Patient has mild expiratory wheezes bilaterally. Few rhonchi at the bases. GASTROINTESTINAL: Abdomen soft, non-tender, nondistended. MUSCULOSKELETAL: No cyanosis, or edema. BACK: Nontender without obvious deformity. No CVA tenderness. Neurologic exam normal. Data Data Last Documented VS Vital Signs Date Time Temp Pulse Resp B/P Pulse Ox O2 Delivery O2 Flow Rate FiO2 02/12/17 20:00 101 15 127/78 100 BiPAP 02/12/17 19:19 98.9 Orders Complete Blood Count With Diff (02/12/17 19:20) B-Type Natriuretic Peptide (02/12/17 19:20) Act Partial Throm Time (Ptt) (02/12/17 19:20) Prothrombin Time / Inr (Pt) (02/12/17 19:20) Arterial Blood Gas (Abg) (02/12/17 19:20) Influenzae A/B Antigen (02/12/17 19:20) Blood Culture (02/12/17 19:20) Iv Access Insert/Monitor (02/12/17 19:20) Electrocardiogram (02/12/17 19:20) Ecg Monitoring (02/12/17 19:20) Oximetry (02/12/17 19:20) Oxygen Administration (02/12/17 19:20) Chest, Single Ap (02/12/17 19:20) Albuterol-Ipratropium Neb (Duoneb Neb) (02/12/17 19:30) Comprehensive Metabolic Panel (02/12/17 19:27) Furosemide Inj (Lasix Inj) (02/12/17 20:00) Urinary Catheter Insert/Apply (02/12/17 19:55) Cefepime Inj (Maxipime Inj) (02/12/17 20:15) Azithromycin Inj (Zithromax Inj) (02/12/17 20:15) Admit Order (Ed Use Only) (02/12/17 20:22) Vital Signs (Adult) Q4H (02/12/17 20:20) Activity Oob With Assistance (02/12/17 20:20) Machine Programmer / Telemetry .CONTINUOUS (02/12/17 20:20) Intake + Output MALA.QSHIFT (02/12/17 20:20) Diet Heart Healthy (02/13/17 Breakfast) Sodium Chloride 0.9% Flush (Ns Flush) (02/12/17 20:30) Sodium Chloride 0.9% Flush (Ns Flush) (02/12/17 21:00) Ondansetron Inj (Zofran Inj) (02/12/17 20:30) Comprehensive Metabolic Panel (02/13/17 06:00) Complete Blood Count With Diff (02/13/17 06:00) Scd Bilateral/Knee High MALA.BID (02/12/17 20:20) Osmany Bilateral/Knee High MALA.QSHIFT (02/12/17 20:20) Acetaminophen (Tylenol) (02/12/17 20:30) Acetamin-Hydrocod 325-5 Mg ([place] 5-325 (02/12/17 20:30) Morphine Inj (Morphine Inj) (02/12/17 20:30) Docusate Sodium-Senna (Sari-Colace) (02/12/17 21:00) Magnesium Hydroxide Liq (Milk Of Magnesi (02/12/17 20:30) Sennosides (Senokot) (02/12/17 20:30) Bisacodyl Supp (Dulcolax Supp) (02/12/17 20:30) Lactulose Liq (Lactulose Liq) (02/12/17 20:30) Inpatient Certification (02/12/17 ) Methylprednisolone So Succ Inj (Solumedr (02/13/17 00:00) Albuterol-Ipratropium Neb (Duoneb Neb) (02/13/17 08:00) Albuterol-Ipratropium Neb (Duoneb Neb) (02/12/17 20:30) Guaifenesin Er (Mucinex Er) (02/12/17 21:00) Ceftriaxone Inj (Rocephin Inj) (02/13/17 21:00) Azithromycin Inj (Zithromax Inj) (02/13/17 21:00) B-Type Natriuretic Peptide (02/13/17 06:00) Alprazolam (Xanax) (02/12/17 20:30) Aspirin Ec (Ecotrin Ec) (02/13/17 09:00) Atorvastatin (Lipitor) (02/13/17 09:00) Budeson-Formot 160-4.5 Mg Inh (Symbicort (02/12/17 21:00) Furosemide (Lasix) (02/13/17 09:00) Labs Laboratory Tests Test 02/12/17 19:25 White Blood Count 8.3 TH/MM3 Red Blood Count 3.33 MIL/MM3 Hemoglobin 10.9 GM/DL Hematocrit 32.2 % Mean Corpuscular Volume 96.7 FL Mean Corpuscular Hemoglobin 32.8 PG Mean Corpuscular Hemoglobin 33.9 % Concent Red Cell Distribution Width 13.7 % Platelet Count 207 TH/MM3 Mean Platelet Volume 8.0 FL Neutrophils (%) (Auto) 64.3 % Lymphocytes (%) (Auto) 26.9 % Monocytes (%) (Auto) 7.0 % Eosinophils (%) (Auto) 0.9 % Basophils (%) (Auto) 0.9 % Neutrophils # (Auto) 5.3 TH/MM3 Lymphocytes # (Auto) 2.2 TH/MM3 Monocytes # (Auto) 0.6 TH/MM3 Eosinophils # (Auto) 0.1 TH/MM3 Basophils # (Auto) 0.1 TH/MM3 CBC Comment DIFF FINAL Differential Comment Prothrombin Time 9.6 SEC Prothromb Time International 0.9 RATIO Ratio Activated Partial 26.0 SEC Thromboplast Time Sodium Level 138 MEQ/L Potassium Level 3.5 MEQ/L Chloride Level 101 MEQ/L Carbon Dioxide Level 25.4 MEQ/L Anion Gap 12 MEQ/L Blood Urea Nitrogen 19 MG/DL Creatinine 0.73 MG/DL Estimat Glomerular Filtration 82 ML/MIN Rate Random Glucose 142 MG/DL Calcium Level 8.6 MG/DL Total Bilirubin 0.3 MG/DL Aspartate Amino Transf 29 U/L (AST/SGOT) Alanine Aminotransferase 40 U/L (ALT/SGPT) Alkaline Phosphatase 107 U/L B-Type Natriuretic Peptide 220 PG/ML Total Protein 6.9 GM/DL Albumin 3.4 GM/DL [facility] Medical Decision Making Medical Screen Exam Complete: Yes Emergency Medical Condition: Yes Medical Record Reviewed: Yes Interpretation(s) Last Impressions Chest X-Ray 02/12/17 1920 Signed Impressions: Service Date/Time: Sunday, February 12, 2017 19:35 - CONCLUSION: Cardiomegaly with minimal interstitial edema. Rinku Neumann MD 2009 p.m. CBC within normal limit. CMP within normal limit. BUN 19. Differential Diagnosis Differential diagnosis including acute exacerbation of COPD, CHF, pneumonia, PE , pneumothorax. Narrative Course 57-year-old female shortness of breath. History of COPD and CHF. Patient was given albuterol treatment and Solu-Medrol IV by EMS. Albuterol with Atrovent unit dose treatment 1. Lasix 40 mg IV. Cefepime 1 g IV. Zithromax 500 mg IV. Critical Care Narrative Aggregate critical care time was 30 minutes. Time to perform other separately billable procedures was not included in the critical care time. My time did not include minutes spent treating any other patients simultaneously or on activities that did not directly contribute to the patient's treatment. The services I provided to this patient were to treat and/or prevent clinically significant deterioration that could result in: I provided critical care services requiring my management, as noted below: Chart data review, documentation time, medication orders and management, vital sign assessments/reviewing monitor data, ordering and reviewing lab tests, ordering and interpreting/reviewing x-rays and diagnostic studies, care of the patient and discussion of the patient with the admitting physicians. Diagnosis Primary Impression: COPD with acute exacerbation Additional Impressions: Acute exacerbation of CHF (congestive heart failure) Qualified Code: I50.23 - Acute on chronic systolic congestive heart failure Acute respiratory failure with hypoxemia Admitting Information Admitting Physician Requests: Prem Bailey MD Feb 12, 2017 19:29
[2017-02-12] MEDS ORDERED: RESP: ALBUTEROL 2.5 MG/IPRATROPIUM 0.5 MG NEB (SCH) INH ONE (19:30)
--- NOTE | 2017-02-12 19:44 | RADRPT ---
EXAM DATE/TIME: 02/12/2017 19:35 [place] COMPARISON: CHEST PA & LAT, February 01, 2017, 19:47. INDICATIONS : Short of breath. MEDICAL HISTORY : None. SURGICAL HISTORY : Pacemaker. ENCOUNTER: Initial ACUITY: 1 day PAIN SCORE: 0/10 LOCATION: Bilateral chest FINDINGS: A single view of the chest demonstrates cardiomegaly with minimal interstitial edema. Left-sided pace maker. Osseous structures are intact. CONCLUSION: Cardiomegaly with minimal interstitial edema. Rinku Neumann MD on February 12, 2017 at 19:42 Board Certified Radiologist. This report was verified electronically.
[2017-02-12 19:47] LABS: AUTOMATED NEUTROPHIL # 5.3 TH/MM3 (1.8-7.7); BASOPHIL # 0.1 TH/MM3 (0-0.2); BASOPHIL % 0.9 % (0.0-2.0); EOSINOPHIL # 0.1 TH/MM3 (0-0.4); EOSINOPHIL % 0.9 % (0.0-4.0); HEMATOCRIT 32.2 % (35.0-46.0); HEMO FLAGS DIFF FINAL; LYMPH % 26.9 % (9.0-44.0); LYMPHOCYTE # 2.2 TH/MM3 (1.0-4.8); MEAN CELL VOLUME 96.7 FL (80.0-100.0); MEAN CORPUSCULAR HEMOGLOBIN 32.8 PG (27.0-34.0); MEAN CORPUSCULAR HGB CONC 33.9 % (32.0-36.0); NEUT % 64.3 % (16.0-70.0); PLATELET COUNT 207 TH/MM3 (150-450); RED BLOOD COUNT 3.33 MIL/MM3 (4.00-5.30); RED CELL DISTRIBUTION WIDTH 13.7 % (11.6-17.2); WHITE BLOOD COUNT 8.3 TH/MM3 (4.0-11.0)
[2017-02-12] MEDS ORDERED: FUROSEMIDE 40 MG/4 ML VIAL IV PUSH ONE (20:00)
[2017-02-12 20:03] LABS: ALT (GPT) 40 U/L (10-53); ANION GAP 12 MEQ/L (5-15); AST (GOT) 29 U/L (15-37); BICARBONATE 25.4 MEQ/L (21.0-32.0); BLOOD UREA NITROGEN 19 MG/DL (7-18); CHLORIDE 101 MEQ/L (98-107); GLOMERULAR FILTRATION RATE 82 ML/MIN (>89); POTASSIUM 3.5 MEQ/L (3.5-5.1); SODIUM (NA) 138 MEQ/L (136-145)
[2017-02-12 20:05] LABS: ALKALINE PHOSPHATASE 107 U/L (45-117); TOTAL BILIRUBIN ADULT 0.3 MG/DL (0.2-1.0)
[2017-02-12 20:13] LABS: INTERNATIONAL NORMALIZED RATIO 0.9 RATIO; PROTHROMBIN TIME - PATIENT 9.6 SEC (9.8-11.6)
[2017-02-12] MEDS ORDERED: AZITHROMYCIN INJ 500 MG in SODIUM CHLOR 0.9% 250 ML INJ 250 ML IV ONE (20:15)
[2017-02-12] MEDS ORDERED: CEFEPIME INJ 1,000 MG in SODIUM CHLORIDE 0.9% INJ 100 ML IV ONE (20:15)
--- NOTE | 2017-02-12 20:26 | HHI.HP ---
[facility] Physician Unknown Admission Diagnosis exacerbation COPD. Acute exacerbation CHF. Diagnoses: (1) COPD (chronic obstructive pulmonary disease) Diagnosis: Principal (2) Hypoxia Diagnosis: Principal (3) CHF (congestive heart failure) Diagnosis: Principal (4) HTN (hypertension) Diagnosis: Principal (5) Tobacco abuse Diagnosis: Principal (6) Alcohol abuse Diagnosis: Principal Travel History International Travel<30 Days: No Contact w/Intl Traveler <30 Da: No Traveled to Known Affected Are: No History of Present Illness This is a 57-year-old female with a PMH of HTN, CAD, COPD, CVA, CHF (Echo w/ EF 40-45%), Alcohol Abuse and Tobacco Abuse who was brought to the ER by EMS secondary to SOB. O2 sat 80% upon EMS arrival, placed on CPAP, transitioned to BIPAP upon arrival to ER. BP 139/76, HR 113, O2 sat 100% on BiPAP, Afebrile. Recent admit 01/28-02/03/17 for COPD/PNA also requiring BIPAP, s /p eval by Pulmonology. Pt continues to smoke. CBC at baseline. Chemistry essentially unremarkable. BNP 220. CXR with cardiomegaly, mild interstitial edema. S/p Lasix 40mg IV x1 in ER in addition to Solu-Medrol/DuoNeb. Currently improved. Review of Systems Except as stated in HPI: all other systems reviewed are Neg ROS: 14 point review of systems otherwise negative. Past Family Social History Past Medical History PMH: HTN, CAD, COPD, CVA, CHF (Echo 01/12/15 w/ EF 40-45%), Alcohol Abuse and Tobacco Abuse Past Surgical History PAST SURGICAL HISTORY: AICD, Cardiac Stent, Tonsillectomy Allergies: Coded Allergies: No Known Allergies (Verified , 01/27/17) Family History PAST FAMILY HISTORY: Reviewed. No h/o DM or CAD Social History PAST SOCIAL HISTORY: Drinks daily. Smokes 1ppd. Negative for drugs. Physical Exam Vital Signs Vital Signs Date Time Temp Pulse Resp B/P Pulse Ox O2 Delivery O2 Flow Rate FiO2 02/12/17 20:00 101 15 127/78 100 BiPAP 02/12/17 19:25 97 CPAP 02/12/17 19:25 32 97 CPAP 02/12/17 19:22 113 32 97 CPAP 02/12/17 19:19 98.9 113 32 139/76 97 Physical Exam PE: GENERAL: Middle-aged female in no acute distress. Currently on BiPAP. HEENT: PERRLA, EOMI. No scleral icterus or conjunctival pallor. No lid lag or facial droop. CARDIOVASCULAR: Regular rate and rhythm. No obvious murmurs to auscultation. No chest tenderness to palpation. RESPIRATORY: Scattered rhonchi and wheezing. Clear to auscultation. Breath sounds equal bilaterally. GASTROINTESTINAL: Abdomen soft, non-tender, nondistended. BS normal. MUSCULOSKELETAL: Extremities without clubbing, cyanosis, or edema. No obvious deformities. NEUROLOGICAL: Awake, alert and oriented x4. No focal neurologic deficits. Moving both upper and lower extremities spontaneously. Laboratory Laboratory Tests Test 02/12/17 19:25 White Blood Count 8.3 Red Blood Count 3.33 Hemoglobin 10.9 Hematocrit 32.2 Mean Corpuscular Volume 96.7 Mean Corpuscular Hemoglobin 32.8 Mean Corpuscular Hemoglobin 33.9 Concent Red Cell Distribution Width 13.7 Platelet Count 207 Mean Platelet Volume 8.0 Neutrophils (%) (Auto) 64.3 Lymphocytes (%) (Auto) 26.9 Monocytes (%) (Auto) 7.0 Eosinophils (%) (Auto) 0.9 Basophils (%) (Auto) 0.9 Neutrophils # (Auto) 5.3 Lymphocytes # (Auto) 2.2 Monocytes # (Auto) 0.6 Eosinophils # (Auto) 0.1 Basophils # (Auto) 0.1 CBC Comment DIFF FINAL Differential Comment Prothrombin Time 9.6 Prothromb Time International 0.9 Ratio Activated Partial 26.0 Thromboplast Time Sodium Level 138 Potassium Level 3.5 Chloride Level 101 Carbon Dioxide Level 25.4 Anion Gap 12 Blood Urea Nitrogen 19 Creatinine 0.73 Estimat Glomerular Filtration 82 Rate Random Glucose 142 Calcium Level 8.6 Total Bilirubin 0.3 Aspartate Amino Transf 29 (AST/SGOT) Alanine Aminotransferase 40 (ALT/SGPT) Alkaline Phosphatase 107 B-Type Natriuretic Peptide 220 Total Protein 6.9 Albumin 3.4 Date/Time Procedure Status Source Growth 02/12/17 19:30 Influenza Types A,B Antigen (SHONDA) - Final Complete Nasal Washing 02/12/17 19:25 Aerobic Blood Culture Received Blood Peripheral Pending 02/12/17 19:25 Anaerobic Blood Culture Received Blood Peripheral Pending Result Diagram: 02/12/17192402/12/171924 Assessment and Plan Problem List: (1) COPD (chronic obstructive pulmonary disease) ICD Code: J44.9 Status: Chronic (2) Hypoxia ICD Code: R09.02 Status: Acute (3) CHF (congestive heart failure) ICD Code: I50.9 Status: Chronic (4) HTN (hypertension) ICD Code: I10 Status: Acute (5) Tobacco abuse ICD Code: Z72.0 Status: Acute (6) Alcohol abuse ICD Code: F10.10 Status: Acute Assessment and Plan A/P: 1. COPD: Chronic Respiratory Failure w/ Acute Exacerbation, recent admit for same 01/28-02/03/17, continues to smoke. Currently on BIPAP, wean as tolerated. CXR w/ interstitial edema noted, images reviewed by me. S/p Rocephin/Cefepime in ER, will continue w/ IV Abx for possible atypical PNA. Solu-Medrol, Symbicort, Duoneb q4h and q2h prn, Mucinex. 2. Hypoxia: Os sat 80% upon EMS arrival, currently 100% on BIPAP, will wean as tolerated. Monitor O2. 3. CHF: Acute on Chronic. Systolic. Echo 01/29/17 w/ EF 25-30%. BNP 220. CXR w/ interstitial edema, S/p Lasix IV in ER. Continue w/ diuresis. Monitor renal function. Resume home Lasix, Lisinopril, caution w/ B-tomas in light of acute COPD/CHF exacerbation. 4. HTN: Controlled. Resume home medications. 5. Alcohol Abuse: CIWA, Seizure Precautions, MVT/Thiamine/Folate replacement. 6. Tobacco Abuse: Pt strongly encouraged to quit smoking. NicoDerm prn if needed. 7. DVT Prophylaxis: SCD/teds. 8. Case discussed at length with ER physician. Physician Certification 2 Midnight Certification Type: Admission for Inpatient Services Order for Inpatient Services The services are ordered in accordance with Medicare regulations or non- Medicare payer requirements, as applicable. In the case of services not specified as inpatient-only, they are appropriately provided as inpatient services in accordance with the 2-midnight benchmark. Estimated LOS (days): 2 days is the estimated time the patient will need to remain in the hospital, assuming treatment plan goals are met and no additional complications. Post-Hospital Plan: Not yet determined Jemma Garces MD Feb 12, 2017 20:26
[2017-02-12] MEDS ORDERED: LACTULOSE SYRUP 20 GM/30 ML CUP PO PRN (20:30)
[2017-02-12] MEDS ORDERED: MORPHINE SULFATE 4 MG/ML INJ IV PRN (20:30)
[2017-02-12] MEDS ORDERED: MAGNESIUM HYDROXIDE SUSP 30 ML CUP PO PRN (20:30)
[2017-02-12] MEDS ORDERED: ACETAMINOPHEN 325 MG TAB PO PRN (20:30)
[2017-02-12] MEDS ORDERED: SENNOSIDES 8.6 MG TAB PO PRN (20:30)
[2017-02-12] MEDS ORDERED: BISACODYL 10 MG SUPP RECTAL PRN (20:30)
[2017-02-12] MEDS ORDERED: ACETAMINOPHEN/HYDROcodone 325 MG/5 MG TAB PO PRN (20:30)
[2017-02-12] MEDS ORDERED: ONDANSETRON HCL 4 MG/2 ML VIAL IVP PRN (20:30)
[2017-02-12] MEDS ORDERED: FLUMAZENIL 0.5 MG/5 ML VIAL IV PUSH PRN (21:15)
[2017-02-12] MEDS ORDERED: LORazepam 2 MG/ML VIAL IV PUSH PRN ×4 (21:15)
[2017-02-12] MEDS ORDERED: LORazepam 2 MG TAB PO PRN (21:15)
[2017-02-12] MEDS ORDERED: HALOPERIDOL LACTATE 5 MG/ML AMP IM PRN (21:15)
[2017-02-12] MEDS ORDERED: LORazepam 1 MG TAB PO PRN (21:15)
[2017-02-12] MEDS: SODIUM CHLORIDE 0.9% FLUSH 10 ML FLUSH IV FLUSH SCH (22:17)
[2017-02-12] MEDS: guaiFENesin E.R. 600 MG TAB PO SCH (22:53)
[2017-02-12] MEDS: DOCUSATE SODIUM 50 MG/SENNA 8.6 MG TAB PO SCH (22:54)
[2017-02-12] MEDS: BUDESONIDE-FORMOTEROL 160/4.5 MCG INHALER INH SCH (23:51)
[2017-02-12] MEDS: methylPREDNISolone SOD SUCC 40 MG/1 ML VIAL IV PUSH SCH (23:53)
[2017-02-13] VITALS (32 sets, daily range): BP systolic 112–140; BP diastolic 71–88; PULSE 95–126; RESP 16–20; TEMP 97.4–98.3; O2SAT 93–99
[2017-02-13 01:31] LABS: BLOOD GAS BASE EXCESS -4.4 mmol/L (-2-2); BLOOD GAS HCO3 20 mmol/L (22-26); BLOOD GAS METHEMOGLOBIN 0.6 % (0-2); BLOOD GAS O2 HGB SATURATION 97 % (90-100); BLOOD GAS OXYGEN CONTENT 15.9 Vol % (12.0-20.0); BLOOD GAS PCO2 37 mmHg (38-42); BLOOD GAS PO2 167 mmHG (61-120); BLOOD GAS TOTAL HGB 11.5 G/DL (12.0-16.0); TEMP CORR TO 98.6
[2017-02-13 01:32] LABS: CRITICAL VALUE NO; DRAW SITE LT RADIAL; FIO2 40 %; NUMBER OF ARTERIAL PUNCTURES 1; OXYGEN DEVICE BiPAP; STAT NO; ULNAR PULSE PRESENT
[2017-02-13 06:40] LABS: BASOPHIL % 0.2 % (0.0-2.0); EOSINOPHIL % 0.2 % (0.0-4.0); HEMO FLAGS DIFF FINAL; LYMPH % 6.6 % (9.0-44.0); LYMPHOCYTE # 0.4 TH/MM3 (1.0-4.8); MEAN CELL VOLUME 97.8 FL (80.0-100.0); MEAN CORPUSCULAR HEMOGLOBIN 32.5 PG (27.0-34.0); MEAN CORPUSCULAR HGB CONC 33.2 % (32.0-36.0); MONO % 1.2 % (0.0-8.0); NEUT % 91.8 % (16.0-70.0); PLATELET COUNT 183 TH/MM3 (150-450); RED BLOOD COUNT 3.28 MIL/MM3 (4.00-5.30); RED CELL DISTRIBUTION WIDTH 13.6 % (11.6-17.2); WHITE BLOOD COUNT 6.6 TH/MM3 (4.0-11.0)
[2017-02-13] MEDS: methylPREDNISolone SOD SUCC 40 MG/1 ML VIAL IV PUSH SCH ×4 (06:54→23:44)
[2017-02-13 07:02] LABS: ANION GAP 10 MEQ/L (5-15); AST (GOT) 14 U/L (15-37); BICARBONATE 26.3 MEQ/L (21.0-32.0); BLOOD UREA NITROGEN 23 MG/DL (7-18); CHLORIDE 106 MEQ/L (98-107); GLOMERULAR FILTRATION RATE 75 ML/MIN (>89); POTASSIUM 3.7 MEQ/L (3.5-5.1); SODIUM (NA) 142 MEQ/L (136-145)
[2017-02-13 07:03] LABS: ALT (GPT) 33 U/L (10-53)
[2017-02-13 07:05] LABS: ALKALINE PHOSPHATASE 107 U/L (45-117); TOTAL BILIRUBIN ADULT 0.2 MG/DL (0.2-1.0)
[2017-02-13] MEDS: RESP: ALBUTEROL 2.5 MG/IPRATROPIUM 0.5 MG NEB (SCH) NEB ×4 (08:17→19:41)
[2017-02-13] MEDS: BUDESONIDE-FORMOTEROL 160/4.5 MCG INHALER INH SCH ×2 (08:47→20:37)
[2017-02-13] MEDS: ENALAPRIL MALEATE 5 MG TAB PO SCH (08:48)
[2017-02-13] MEDS: FOLIC ACID 1 MG TAB PO SCH (08:48)
[2017-02-13] MEDS: guaiFENesin E.R. 600 MG TAB PO SCH ×2 (08:48→20:38)
[2017-02-13] MEDS: DOCUSATE SODIUM 50 MG/SENNA 8.6 MG TAB PO SCH ×3 (08:48→20:38)
[2017-02-13] MEDS: ATORVASTATIN 20 MG TAB PO SCH (08:48)
[2017-02-13] MEDS: ASPIRIN EC 81 MG TABEC PO SCH (08:48)
[2017-02-13] MEDS: MULTIVITAMINS/MINERALS THERAPEUTIC TAB PO SCH (08:48)
[2017-02-13] MEDS: FUROSEMIDE 40 MG TAB PO SCH ×2 (08:48→18:10)
[2017-02-13] MEDS: SODIUM CHLORIDE 0.9% FLUSH 10 ML FLUSH IV FLUSH SCH ×2 (08:48→20:38)
[2017-02-13] MEDS: THIAMINE HCL 100 MG TAB PO SCH (08:49)
[2017-02-13] MEDS: SODIUM CHLORIDE 0.9% FLUSH 10 ML FLUSH IV FLUSH PRN (11:14)
[2017-02-13] MEDS ORDERED: DEXTROSE 50% IN WATER 50 ML VIAL(D50) IV PRN (11:45)
[2017-02-13] MEDS ORDERED: GLUCAGON 1 MG/ML VIAL OTHER PRN (11:45)
[2017-02-13] MEDS ORDERED: MAGNESIUM HYDROXIDE SUSP 30 ML CUP PO PRN (12:15)
[2017-02-13] MEDS ORDERED: BISACODYL 10 MG SUPP RECTAL PRN (12:15)
[2017-02-13] MEDS ORDERED: LACTULOSE SYRUP 20 GM/30 ML CUP PO PRN (12:15)
[2017-02-13] MEDS ORDERED: SENNOSIDES 8.6 MG TAB PO PRN (12:15)
--- NOTE | 2017-02-13 12:15 | HHI.PR ---
Subjective Remarks Patient seen in follow-up for respiratory failure secondary to CHF and COPD exacerbation She reports she is feeling better. Would like fully catheter out. She reports she has been constipated and has a history of hemorrhoid. She had a blood- tinged bowel movement today after straining. Shortness of breath has improved. Objective Vitals Vital Signs Date Time Temp Pulse Resp B/P Pulse Ox O2 Delivery O2 Flow Rate FiO2 02/13/17 12:06 114 02/13/17 11:52 98 Nasal Cannula 3.00 02/13/17 11:08 97.4 105 17 124/76 98 02/13/17 11:00 103 02/13/17 10:00 106 02/13/17 09:00 106 02/13/17 08:17 97 Nasal Cannula 3.00 02/13/17 08:01 97.8 107 18 140/88 97 02/13/17 08:00 100 02/13/17 07:00 104 02/13/17 07:00 96 Bi-Pap 02/13/17 06:00 95 02/13/17 05:00 97 02/13/17 04:00 98 02/13/17 03:19 97 30 02/13/17 03:10 98.0 100 16 118/71 97 02/13/17 03:10 95 Bi-Pap 30 02/13/17 03:00 100 02/13/17 02:16 102 02/13/17 01:09 107 02/13/17 00:00 108 02/13/17 00:00 Bi-Pap 30 02/12/17 23:29 97 30 02/12/17 23:00 98 Nasal Cannula 4.00 02/12/17 23:00 98.4 111 18 127/78 98 02/12/17 23:00 106 02/12/17 22:54 95 Nasal Cannula 4.00 02/12/17 21:00 100 40 02/12/17 20:00 101 15 127/78 100 BiPAP 02/12/17 19:25 97 CPAP 02/12/17 19:25 32 97 CPAP 02/12/17 19:22 113 32 97 CPAP 02/12/17 19:19 98.9 113 32 139/76 97 I/O 02/12/17 02/12/17 02/12/17 02/13/17 02/13/17 02/13/17 07:00 15:00 23:00 07:00 15:00 23:00 Intake Total 460 ml Output Total 1425 ml Balance -965 ml Intake Oral 360 ml IV Total 100 ml Output Urine Total 1425 ml # Bowel Movements 0 Result Diagram: 02/13/17 0550 02/13/17 0550 Imaging Last Impressions Chest X-Ray 02/12/17 1920 Signed Impressions: Service Date/Time: Sunday, February 12, 2017 19:35 - CONCLUSION: Cardiomegaly with minimal interstitial edema. Rinku Neumann MD Objective Remarks GENERAL: This is a well-nourished, well-developed patient, in no apparent distress. CARDIOVASCULAR: Normal rate and regular rhythm without murmurs, gallops, or rubs. RESPIRATORY: Good respiratory efforts. Some faint expiratory wheezing bilaterally. GASTROINTESTINAL: Abdomen soft, non-tender, non-distended. Normal active bowel sounds MUSCULOSKELETAL: Extremities without cyanosis, or edema. NEURO: Alert & Oriented x4 to person, place, time, situation. Moves all ext x4 PSYCH: Appropriate mood and affect. A/P Problem List: (1) COPD (chronic obstructive pulmonary disease) ICD Code: J44.9 Status: Chronic (2) Hypoxia ICD Code: R09.02 Status: Acute (3) CHF (congestive heart failure) ICD Code: I50.9 Status: Chronic (4) HTN (hypertension) ICD Code: I10 Status: Acute (5) Tobacco abuse ICD Code: Z72.0 Status: Acute (6) Alcohol abuse ICD Code: F10.10 Status: Acute Assessment and Plan 57-year-old female admitted with acute on chronic respiratory failure secondary to COPD and CHF exacerbation. COPD: Chronic Respiratory Failure w/ Acute Exacerbation, recent admit for the same 01/28-02/03/17. Patient is noncompliant and continues to smoke. Status post BiPAP on arrival. Continue w/ IV Abx for possible atypical PNA. Solu- Medrol, Symbicort, Duoneb q4h and q2h prn, Mucinex. Patient counseled on the need to be compliant and to stop using tobacco. CHF: Acute on Chronic. Systolic. Echo 01/29/17 w/ EF 25-30%. BNP 220. CXR w / interstitial edema, S/p Lasix IV in ER. Continue w/ Lasix. Continue Lisinopril. Start low-dose Coreg. ALL Gan HTN: Controlled. Continue home medications. Blood in the stool: Likely secondary to hemorrhoids. Patient has a known history of this. Start scheduled bowel regimen to prevent constipation. Follow H&H and bowel movements. Outpatient follow-up with GI recommended. Alcohol Abuse: CIWA, Seizure Precautions, MVT/Thiamine/Folate replacement. Tobacco Abuse: Pt counseled to quit smoking. Nicotine patch ordered. DVT Prophylaxis: SCD/teds. Discharge Planning Anticipated discharge in the next couple of days if she continues to improve. Lashonda Martinez MD Feb 13, 2017 12:15
[2017-02-13] MEDS: CARVEDILOL 3.125 MG TAB PO SCH ×2 (12:47→20:38)
[2017-02-13] MEDS: NICOTINE 14 MG/24 HR PATCH T-DERMAL SCH (12:48)
[2017-02-13] MEDS: INSULIN ASPART SUPPLEMENTAL SCALE SQ SCH ×3 (12:50→20:39)
--- NOTE | 2017-02-13 14:33 | EKG ---
Date Performed: 02/12/2017 Time Performed: 19:20:45 PTAGE: 57 years EKG: SINUS TACHYCARDIA LOW QRS VOLTAGE IN PRECORDIAL LEADS NONSPECIFIC T-WAVE ABNORMALITY Flatte luna of the T wave anterolaterally is new since prior tracing ABNORMAL RHYTHM ECG PREVIOUS TRACING : 01/28/17 DOCTOR: Chava Mckay Interpretating Date/Time 02/13/2017 14:31:32
[2017-02-13] MEDS: AZITHROMYCIN INJ 500 MG in SODIUM CHLOR 0.9% 250 ML INJ 250 ML IV SCH (20:37)
[2017-02-13] MEDS: cefTRIAXone INJ 1,000 MG in SODIUM CHLORIDE 0.9% INJ 100 ML IV SCH (21:52)
[2017-02-13] MEDS: ALPRAZolam 0.5 MG TAB PO PRN (21:52)
[2017-02-13] MEDS ORDERED: POTASSIUM CHLORIDE 20 MEQ CONTROLLED RELEASE TAB PO ONE (22:30)
[2017-02-13] MEDS ORDERED: FUROSEMIDE 40 MG/4 ML VIAL IV PUSH ONE (22:30)
[2017-02-14] VITALS (32 sets, daily range): BP systolic 103–146; BP diastolic 64–92; PULSE 83–108; RESP 16–19; TEMP 97–98.2; O2SAT 92–98
[2017-02-14] MEDS: methylPREDNISolone SOD SUCC 40 MG/1 ML VIAL IV PUSH SCH ×3 (06:27→22:28)
[2017-02-14] MEDS: INSULIN ASPART SUPPLEMENTAL SCALE SQ SCH ×4 (06:30→20:39)
[2017-02-14] MEDS: RESP: ALBUTEROL 2.5 MG/IPRATROPIUM 0.5 MG NEB (SCH) NEB ×4 (08:00→20:22)
--- NOTE | 2017-02-14 08:20 | HHI.PR ---
Subjective Remarks Tells me that overnight she felt her HR going fast, as if she was in afib and had some chest discomfort and sob which was relieved after taking the lasix. This has now resolved. she is coughing but SOB is improved. Denies any chest pains at this time, denies any nausea or vomiting Objective Vitals Vital Signs Date Time Temp Pulse Resp B/P Pulse Ox O2 Delivery O2 Flow Rate FiO2 02/14/17 06:00 83 02/14/17 05:00 83 02/14/17 04:00 94 Bi-Pap 30 02/14/17 04:00 97.1 85 17 108/64 94 02/14/17 04:00 86 02/14/17 03:31 93 30 02/14/17 03:00 88 02/14/17 02:00 94 02/14/17 01:00 94 02/14/17 00:30 97 30 02/14/17 00:00 96 Bi-Pap 30 02/14/17 00:00 97.0 95 18 125/77 96 02/14/17 00:00 98 02/13/17 23:00 120 02/13/17 22:08 93 30 02/13/17 22:00 96 Bi-Pap 30 02/13/17 22:00 126 02/13/17 21:00 114 02/13/17 20:00 110 02/13/17 20:00 98 Nasal Cannula 1.00 02/13/17 20:00 98.3 102 20 127/79 98 02/13/17 19:41 98 Nasal Cannula 1.00 02/13/17 19:00 104 02/13/17 18:36 105 02/13/17 17:03 104 02/13/17 16:52 105 02/13/17 15:22 97.5 99 19 112/74 99 02/13/17 15:20 99 Nasal Cannula 1.00 02/13/17 15:00 102 02/13/17 14:29 96 02/13/17 13:22 115 02/13/17 12:06 114 02/13/17 11:52 98 Nasal Cannula 3.00 02/13/17 11:08 97.4 105 17 124/76 98 02/13/17 11:00 103 02/13/17 10:00 106 02/13/17 09:00 106 02/13/17 08:17 97 Nasal Cannula 3.00 I/O 02/13/17 02/13/17 02/13/17 02/14/17 02/14/17 02/14/17 07:00 15:00 23:00 07:00 15:00 23:00 Intake Total 460 ml 900 ml 590 ml Output Total 1425 ml 900 ml 1450 ml Balance -965 ml 0 ml -860 ml Intake Oral 360 ml 900 ml 240 ml IV Total 100 ml 350 ml Output Urine Total 1425 ml 900 ml 1450 ml # Bowel Movements 0 3 1 Result Diagram: 02/13/17 0550 02/13/17 0550 Imaging Last Impressions Chest X-Ray 02/12/17 1920 Signed Impressions: Service Date/Time: Sunday, February 12, 2017 19:35 - CONCLUSION: Cardiomegaly with minimal interstitial edema. Rinku Neumann MD Objective Remarks GENERAL: This is a well-nourished, well-developed patient, in no apparent distress. CARDIOVASCULAR: Normal rate and regular rhythm without murmurs RESPIRATORY: decreased breath sounds. Some faint expiratory wheezing bilaterally. GASTROINTESTINAL: Abdomen soft, non-tender, non-distended. Normal active bowel sounds MUSCULOSKELETAL: Extremities without edema. NEURO: Alert & Oriented x4 to person, place, time, situation. Moves all ext x4 PSYCH: Appropriate mood and affect. A/P Problem List: (1) COPD (chronic obstructive pulmonary disease) ICD Code: J44.9 Status: Chronic (2) Hypoxia ICD Code: R09.02 Status: Acute (3) CHF (congestive heart failure) ICD Code: I50.9 Status: Chronic (4) HTN (hypertension) ICD Code: I10 Status: Acute (5) Tobacco abuse ICD Code: Z72.0 Status: Acute (6) Alcohol abuse ICD Code: F10.10 Status: Acute Assessment and Plan 57-year-old female admitted with acute on chronic respiratory failure secondary to COPD and CHF exacerbation. COPD: Chronic Respiratory Failure w/ Acute Exacerbation, recent admit for the same 01/28-02/03/17. Patient is noncompliant and continues to smoke. Status post BiPAP on arrival. Continue w/ IV rocephin and azithro for possible atypical PNA. decrease Solu-Medrol IV to q8hrs, continue Symbicort, Duoneb q4h and q2h prn, Mucinex. Patient has already been counseled on the need to be compliant and to stop using tobacco. CHF: Acute on Chronic. Systolic. Echo 01/29/17 w/ EF 25-30%. BNP 220-->350. CXR w/ interstitial edema, S/p Lasix IV in ER and another dose overnight. Continue w/ Lasix po bid. Continue Lisinopril. on low-dose Coreg. Reviewed TELE and pt was in sinus tachy, no afib noted. HTN: Controlled. Continue home medications. Blood in the stool: Likely secondary to hemorrhoids. Patient has a known history of this. on scheduled bowel regimen to prevent constipation. Follow H& H and bowel movements. Outpatient follow-up with GI recommended. Alcohol Abuse: CIWA, Seizure Precautions, MVT/Thiamine/Folate replacement. Tobacco Abuse: Pt counseled to quit smoking. Nicotine patch ordered. DVT Prophylaxis: SCD/teds. Discharge Planning Anticipated discharge in the next couple of days if she continues to improve. encouraged use of IS q1hrs while awake if she worsens consider consulting pulm and Becca Hikcman MD Feb 14, 2017 08:20
[2017-02-14 08:44] LABS: HEMATOCRIT 33.8 % (35.0-46.0); MEAN CORPUSCULAR HEMOGLOBIN 32.6 PG (27.0-34.0); MEAN CORPUSCULAR HGB CONC 33.6 % (32.0-36.0); PLATELET COUNT 213 TH/MM3 (150-450); RED BLOOD COUNT 3.48 MIL/MM3 (4.00-5.30); RED CELL DISTRIBUTION WIDTH 13.7 % (11.6-17.2); REVIEW FLAG FINAL; WHITE BLOOD COUNT 12.8 TH/MM3 (4.0-11.0)
[2017-02-14] MEDS: REMOVE OLD NICOTINE PATCH T-DERMAL SCH (08:50)
[2017-02-14] MEDS: guaiFENesin E.R. 600 MG TAB PO SCH ×2 (08:50→20:23)
[2017-02-14] MEDS: NICOTINE 14 MG/24 HR PATCH T-DERMAL SCH (08:50)
[2017-02-14] MEDS: ENALAPRIL MALEATE 5 MG TAB PO SCH (08:50)
[2017-02-14] MEDS: FOLIC ACID 1 MG TAB PO SCH (08:50)
[2017-02-14] MEDS: THIAMINE HCL 100 MG TAB PO SCH (08:50)
[2017-02-14] MEDS: SODIUM CHLORIDE 0.9% FLUSH 10 ML FLUSH IV FLUSH SCH ×2 (08:51→20:23)
[2017-02-14] MEDS: ATORVASTATIN 20 MG TAB PO SCH (08:51)
[2017-02-14] MEDS: DOCUSATE SODIUM 50 MG/SENNA 8.6 MG TAB PO SCH ×2 (08:51→20:23)
[2017-02-14] MEDS: MULTIVITAMINS/MINERALS THERAPEUTIC TAB PO SCH (08:51)
[2017-02-14] MEDS: BUDESONIDE-FORMOTEROL 160/4.5 MCG INHALER INH SCH ×2 (08:51→22:29)
[2017-02-14] MEDS: ASPIRIN EC 81 MG TABEC PO SCH (08:51)
[2017-02-14] MEDS: CARVEDILOL 3.125 MG TAB PO SCH ×2 (08:51→20:23)
[2017-02-14] MEDS: FUROSEMIDE 40 MG TAB PO SCH ×2 (08:51→17:37)
[2017-02-14 09:07] LABS: BICARBONATE 24.2 MEQ/L (21.0-32.0); POTASSIUM 3.6 MEQ/L (3.5-5.1)
[2017-02-14] MEDS: SODIUM CHLORIDE 0.9% FLUSH 10 ML FLUSH IV FLUSH PRN (14:27)
[2017-02-14] MEDS: ALPRAZolam 0.5 MG TAB PO PRN (20:23)
[2017-02-14] MEDS: cefTRIAXone INJ 1,000 MG in SODIUM CHLORIDE 0.9% INJ 100 ML IV SCH (20:24)
[2017-02-14] MEDS: AZITHROMYCIN INJ 500 MG in SODIUM CHLOR 0.9% 250 ML INJ 250 ML IV SCH (20:25)
[2017-02-15] VITALS (28 sets, daily range): BP systolic 109–138; BP diastolic 63–91; PULSE 76–136; RESP 17–19; TEMP 97.3–98.2; O2SAT 96–100
[2017-02-15] MEDS ORDERED: FUROSEMIDE 40 MG/4 ML VIAL ONE (01:12)
[2017-02-15] MEDS ORDERED: RESP: IPRATROPIUM 0.5 MG/2.5 ML NEB NEB ONE (01:15)
[2017-02-15] MEDS ORDERED: FUROSEMIDE 20 MG/2 ML VIAL IV PUSH ONE (01:15)
--- NOTE | 2017-02-15 01:31 | RADRPT ---
EXAM DATE/TIME: 02/15/2017 01:08 [facility] COMPARISON: CHEST PA & LAT, February 01, 2017, 19:47. CHEST SINGLE AP, February 12, 2017, 19:35. INDICATIONS : Shortness of breath. MEDICAL HISTORY : None. SURGICAL HISTORY : Pacemaker. ENCOUNTER: Subsequent ACUITY: 2 days PAIN SCORE: Non-responsive. LOCATION: Bilateral chest FINDINGS: A single view of the chest demonstrates the heart remains enlarged. There is perihilar vascular conge stion worse than on the fourth. Single lead left subclavian pacer in good position. No pneumothorax. Osseous structures are intact. CONCLUSION: Pulmonary vascular congestion with interstitial prominence likely early failure. Khang Amos MD on February 15, 2017 at 1:29 Board Certified Radiologist. This report was verified electronically.
[2017-02-15] MEDS: methylPREDNISolone SOD SUCC 40 MG/1 ML VIAL IV PUSH SCH ×2 (06:16→21:54)
[2017-02-15] MEDS: INSULIN ASPART SUPPLEMENTAL SCALE SQ SCH ×4 (06:16→22:01)
[2017-02-15 06:49] LABS: BASOPHIL % 0.1 % (0.0-2.0); EOSINOPHIL % 0.1 % (0.0-4.0); HEMATOCRIT 34.1 % (35.0-46.0); HEMO FLAGS DIFF FINAL; MEAN CELL VOLUME 98.8 FL (80.0-100.0); MEAN CORPUSCULAR HEMOGLOBIN 32.2 PG (27.0-34.0); MEAN CORPUSCULAR HGB CONC 32.6 % (32.0-36.0); MONO % 3.9 % (0.0-8.0); NEUT % 86.9 % (16.0-70.0); PLATELET COUNT 188 TH/MM3 (150-450); RED BLOOD COUNT 3.45 MIL/MM3 (4.00-5.30); RED CELL DISTRIBUTION WIDTH 13.8 % (11.6-17.2); WHITE BLOOD COUNT 11.5 TH/MM3 (4.0-11.0)
[2017-02-15 07:08] LABS: BICARBONATE 26.3 MEQ/L (21.0-32.0); POTASSIUM 3.7 MEQ/L (3.5-5.1)
[2017-02-15] MEDS: RESP: ALBUTEROL 2.5 MG/IPRATROPIUM 0.5 MG NEB (SCH) NEB ×4 (07:43→19:44)
[2017-02-15] MEDS: REMOVE OLD NICOTINE PATCH T-DERMAL SCH (09:00)
[2017-02-15] MEDS: SODIUM CHLORIDE 0.9% FLUSH 10 ML FLUSH IV FLUSH SCH ×2 (09:03→21:54)
[2017-02-15] MEDS: MULTIVITAMINS/MINERALS THERAPEUTIC TAB PO SCH (09:04)
[2017-02-15] MEDS: CARVEDILOL 3.125 MG TAB PO SCH ×2 (09:04→21:53)
[2017-02-15] MEDS: FOLIC ACID 1 MG TAB PO SCH (09:04)
[2017-02-15] MEDS: guaiFENesin E.R. 600 MG TAB PO SCH ×2 (09:04→21:53)
[2017-02-15] MEDS: ATORVASTATIN 20 MG TAB PO SCH (09:04)
[2017-02-15] MEDS: DOCUSATE SODIUM 50 MG/SENNA 8.6 MG TAB PO SCH ×2 (09:05→21:53)
[2017-02-15] MEDS: BUDESONIDE-FORMOTEROL 160/4.5 MCG INHALER INH SCH ×2 (09:05→21:54)
[2017-02-15] MEDS: FUROSEMIDE 40 MG TAB PO SCH (09:05)
[2017-02-15] MEDS: ASPIRIN EC 81 MG TABEC PO SCH (09:05)
[2017-02-15] MEDS: ENALAPRIL MALEATE 5 MG TAB PO SCH (09:05)
[2017-02-15] MEDS: NICOTINE 14 MG/24 HR PATCH T-DERMAL SCH (09:07)
[2017-02-15] MEDS: THIAMINE HCL 100 MG TAB PO SCH (09:09)
--- NOTE | 2017-02-15 10:03 | HHI.PR ---
Subjective Remarks Pt states that she felt again more SOB after getting abx last night and required more lasix. SOB still present somewhat improved after lasix given. states she sees Dr. Mcghee but he doesn't come here. denies any nausea or vomiting. no current chest pain Objective Vitals Vital Signs Date Time Temp Pulse Resp B/P Pulse Ox O2 Delivery O2 Flow Rate FiO2 02/15/17 06:27 89 02/15/17 05:19 77 02/15/17 04:42 76 02/15/17 04:01 96 30 02/15/17 03:43 98.2 99 18 138/91 100 02/15/17 03:43 102 02/15/17 03:43 97 Bi-Pap 5.00 50 02/15/17 02:26 130 02/15/17 01:00 99 50 02/15/17 01:00 136 02/15/17 00:22 89 02/14/17 23:20 96 30 02/14/17 23:20 98.0 88 16 103/66 97 02/14/17 23:20 97 Nasal Cannula 1.00 02/14/17 23:00 87 02/14/17 22:00 91 02/14/17 21:00 99 02/14/17 20:23 94 Nasal Cannula 1.00 02/14/17 20:20 98 Nasal Cannula 1.00 02/14/17 20:20 108 02/14/17 20:20 98.2 106 18 146/92 98 02/14/17 18:10 92 02/14/17 17:00 88 02/14/17 16:00 96 02/14/17 15:30 95 Room Air 02/14/17 15:15 98.1 93 18 106/65 96 02/14/17 15:00 93 02/14/17 14:00 94 02/14/17 13:01 94 02/14/17 12:30 105 02/14/17 11:52 98 02/14/17 11:41 95 Room Air 02/14/17 11:24 95 21 02/14/17 11:09 97.9 91 19 119/71 95 I/O 02/14/17 02/14/17 02/14/17 02/15/17 02/15/17 02/15/17 07:00 15:00 23:00 07:00 15:00 23:00 Intake Total 590 ml 933 ml Output Total 1450 ml 600 ml 250 ml Balance -860 ml -600 ml 683 ml Intake Oral 240 ml 713 ml IV Total 350 ml 220 ml Output Urine Total 1450 ml 600 ml 250 ml # Voids 1 # Bowel Movements 1 1 2 Result Diagram: 02/15/17 0603 02/15/17 0608 Imaging Last Impressions Chest X-Ray 02/15/17 0000 Signed Impressions: Service Date/Time: Wednesday, February 15, 2017 01:08 - CONCLUSION: Pulmonary vascular congestion with interstitial prominence likely early failure. Khang Amos MD Objective Remarks GENERAL: This is a well-nourished, well-developed patient, in no apparent distress. CARDIOVASCULAR: Normal rate and regular rhythm without murmurs RESPIRATORY: decreased breath sounds. Some faint crackles at the bases no wheezing GASTROINTESTINAL: Abdomen soft, non-tender, non-distended. Normal active bowel sounds MUSCULOSKELETAL: Extremities with trace edema. NEURO: Alert & Oriented x4 to person, place, time, situation. Moves all ext x4 PSYCH: Appropriate mood and affect. A/P Problem List: (1) COPD (chronic obstructive pulmonary disease) ICD Code: J44.9 Status: Chronic (2) Hypoxia ICD Code: R09.02 Status: Acute (3) CHF (congestive heart failure) ICD Code: I50.9 Status: Chronic (4) HTN (hypertension) ICD Code: I10 Status: Acute (5) Tobacco abuse ICD Code: Z72.0 Status: Acute (6) Alcohol abuse ICD Code: F10.10 Status: Acute Assessment and Plan 57-year-old female admitted with acute on chronic respiratory failure secondary to COPD and CHF exacerbation. COPD: Chronic Respiratory Failure w/ Acute Exacerbation, recent admit for the same 01/28-02/03/17. Patient is noncompliant and continues to smoke. Status post BiPAP on arrival. d/c IV rocephin and switch to po azithro for possible atypical PNA. decrease Solu-Medrol IV to q12hrs, continue Symbicort, Duoneb q4h and q2h prn, Mucinex. Patient has already been counseled on the need to be compliant and to stop using tobacco. CHF: Acute on Chronic. Systolic. Echo 01/29/17 w/ EF 25-30%. BNP 220-->350--> 470. CXR w/ interstitial edema, S/p Lasix IV in ER and another dose 60mg overnight. switch Lasix to 40mg iv bid. Continue Lisinopril. on low-dose Coreg. Reviewed TELE by me and pt was in sinus tachy, no afib noted. card consult. fluid restriction to 1500ml/d HTN: Controlled. Continue home medications. Blood in the stool: Likely secondary to hemorrhoids. Patient has a known history of this. on scheduled bowel regimen to prevent constipation. H&H stable. Outpatient follow-up with GI recommended. Alcohol Abuse: CIWA, Seizure Precautions, MVT/Thiamine/Folate replacement. Tobacco Abuse: Pt counseled to quit smoking. Nicotine patch ordered. DVT Prophylaxis: SCD/teds. Discharge Planning d/c pending further work-up and clinical improvement Becca Burdick MD Feb 15, 2017 10:03
[2017-02-15] MEDS: FUROSEMIDE 40 MG/4 ML VIAL IV PUSH SCH (17:07)
--- NOTE | 2017-02-15 21:44 | MB ---
cc: BLADIMIR ALARCON DATE OF CONSULTATION 02/15/2017 HISTORY Ms. Greenberg is a 57-year-old white female patient of Dr. Mcghee with a history of congestive heart failure, nonischemic cardiomyopathy and COPD. She presented with shortness of breath and hypoxemia. She has not had any chest pain or significant edema. She was diagnosed with COPD exacerbation and congestive heart failure and was started on IV diuresis. PAST MEDICAL HISTORY Positive for: 1. Hypertension. 2. Coronary artery disease, history of stenting. 3. COPD. 4. Cerebrovascular accident. 5. Congestive heart failure. Last echocardiogram with ejection fraction of 25-30%. 6. History of ICD placement. 7. Coronary stenting. 8. Tonsillectomy. MEDICATIONS Include: 1. Zithromax. 2. Solu-Medrol. 3. Furosemide. 4. Insulin. 5. Nicotine patch. 6. Sari-Colace. 7. Carvedilol. 8. Milk of magnesia. 9. Senokot. 10. Dulcolax as needed. 11. Aspirin. 12. Atorvastatin 20 milligrams daily. 13. Folic acid. 14. Thiamine. 15. Multivitamin. 16. Enalapril. ALLERGIES NONE. SOCIAL HISTORY The patient drinks alcohol daily. She has history of smoking. FAMILY HISTORY Negative for heart disease. REVIEW OF SYSTEMS Otherwise negative. PHYSICAL EXAMINATION VITAL SIGNS: Blood pressure 132/81, pulse 81 and regular. HEENT: Negative. 2+ carotid upstroke. No bruits. LUNGS: With bilateral wheezes and rhonchi. HEART: Regular with no murmur, gallop or rub. ABDOMEN: Soft. No bruits. EXTREMITIES: With trace ankle edema. 1-2+ distal pulses. NEUROLOGICAL: Grossly nonfocal. EKG was reviewed and showed sinus tachycardia, low voltage, nonspecific T-wave changes. LABORATORY DATA Hemoglobin 11.1. Potassium 3.7, creatinine 0.8. AST and ALT normal. BNP 350 and 470. DIAGNOSIS 1. Acute chronic obstructive pulmonary disease exacerbation. 2. Acute exacerbation of chronic systolic congestive heart failure. 3. Cardiomyopathy. 4. Coronary artery disease with a history of stenting. 5. Hypertension. 6. Smoking. 7. Alcohol abuse. DISPOSITION Ms. Greenberg will be monitored on telemetry. We will continue therapy for congestive heart failure including diuresis. We will also continue beta tomas and NEIDA inhibitor. I recommend to continue therapy for COPD exacerbation. I will follow her for cardiology during her hospitalization. She will follow up with Dr. Mcghee, her primary socially responsible investment adviser, in his office after discharge. Bladimir Alarcon MD OMarianna/KK /4:41 PM /8:49 PM VICENTE
[2017-02-15] MEDS: AZITHROMYCIN 250 MG TAB PO SCH (21:53)
[2017-02-16] VITALS (30 sets, daily range): BP systolic 94–132; BP diastolic 55–86; PULSE 71–91; RESP 15–18; TEMP 97.5–98; O2SAT 95–100
[2017-02-16] MEDS: INSULIN ASPART SUPPLEMENTAL SCALE SQ SCH ×4 (06:27→21:00)
[2017-02-16 07:07] LABS: BICARBONATE 26.5 MEQ/L (21.0-32.0); POTASSIUM 3.8 MEQ/L (3.5-5.1)
[2017-02-16] MEDS: RESP: ALBUTEROL 2.5 MG/IPRATROPIUM 0.5 MG NEB (SCH) NEB ×4 (07:45→20:05)
[2017-02-16] MEDS: REMOVE OLD NICOTINE PATCH T-DERMAL SCH (09:00)
[2017-02-16] MEDS: methylPREDNISolone SOD SUCC 40 MG/1 ML VIAL IV PUSH SCH ×2 (09:34→21:05)
[2017-02-16] MEDS: THIAMINE HCL 100 MG TAB PO SCH (09:34)
[2017-02-16] MEDS: MULTIVITAMINS/MINERALS THERAPEUTIC TAB PO SCH (09:34)
[2017-02-16] MEDS: ASPIRIN EC 81 MG TABEC PO SCH (09:34)
[2017-02-16] MEDS: guaiFENesin E.R. 600 MG TAB PO SCH ×2 (09:34→21:05)
[2017-02-16] MEDS: DOCUSATE SODIUM 50 MG/SENNA 8.6 MG TAB PO SCH ×2 (09:34→21:00)
[2017-02-16] MEDS: FUROSEMIDE 40 MG/4 ML VIAL IV PUSH SCH ×2 (09:34→17:11)
[2017-02-16] MEDS: ATORVASTATIN 20 MG TAB PO SCH (09:34)
[2017-02-16] MEDS: CARVEDILOL 3.125 MG TAB PO SCH ×2 (09:34→21:05)
[2017-02-16] MEDS: NICOTINE 14 MG/24 HR PATCH T-DERMAL SCH (09:35)
[2017-02-16] MEDS: FOLIC ACID 1 MG TAB PO SCH (09:35)
[2017-02-16] MEDS: ENALAPRIL MALEATE 5 MG TAB PO SCH (09:35)
[2017-02-16] MEDS: BUDESONIDE-FORMOTEROL 160/4.5 MCG INHALER INH SCH ×2 (09:41→21:04)
[2017-02-16] MEDS: SODIUM CHLORIDE 0.9% FLUSH 10 ML FLUSH IV FLUSH SCH ×2 (09:41→21:06)
[2017-02-16] MEDS ORDERED: FUROSEMIDE 20 MG/2 ML VIAL IV PUSH ONE (11:15)
--- NOTE | 2017-02-16 11:26 | HHI.PR ---
Subjective Remarks Pt states that she is still SOB, she gets chest pains on exertion, describes as a pulsating pain. none at this time. no nausea or vomiting. no events overnight. discussed w RN, no IV lasix required overnight. used bipap then was on RA and satting ok however pt felt SOB and put her on NC 2L Objective Vitals Vital Signs Date Time Temp Pulse Resp B/P Pulse Ox O2 Delivery O2 Flow Rate FiO2 02/16/17 10:00 82 02/16/17 09:30 95 Nasal Cannula 2.00 02/16/17 09:30 97.9 91 18 132/86 95 02/16/17 09:00 84 02/16/17 08:00 78 02/16/17 07:46 95 21 02/16/17 07:45 100 Room Air Bi-Pap 02/16/17 07:00 80 02/16/17 06:18 74 02/16/17 05:22 75 02/16/17 04:15 96 30 02/16/17 04:10 76 02/16/17 03:15 97.9 71 15 94/55 100 02/16/17 03:15 100 Bi-Pap 30 02/16/17 03:15 73 02/16/17 02:28 74 02/16/17 01:07 90 02/16/17 01:02 98 30 02/16/17 00:13 84 02/15/17 23:58 97.6 90 18 127/81 98 02/15/17 23:58 98 Room Air 02/15/17 23:58 89 02/15/17 22:00 82 02/15/17 21:00 86 02/15/17 20:15 85 02/15/17 19:25 97 Room Air 02/15/17 19:25 97.4 81 18 120/73 97 02/15/17 19:25 90 02/15/17 18:03 94 02/15/17 17:20 84 02/15/17 16:40 78 02/15/17 16:40 99 Nasal Cannula 1.00 02/15/17 15:14 97 Nasal Cannula 2.00 02/15/17 15:00 81 02/15/17 15:00 97.3 83 18 109/63 99 02/15/17 14:08 88 02/15/17 13:00 82 02/15/17 12:00 84 I/O 02/15/17 02/15/17 02/15/17 02/16/17 02/16/17 02/16/17 07:00 15:00 23:00 07:00 15:00 23:00 Intake Total 933 ml 600 ml 720 ml Output Total 250 ml 1800 ml 1200 ml Balance 683 ml -1200 ml -480 ml Intake Oral 713 ml 600 ml 720 ml IV Total 220 ml Output Urine Total 250 ml 1800 ml 1200 ml # Bowel Movements 2 Result Diagram: 02/15/17 0603 02/16/17 0600 Imaging Last Impressions Chest X-Ray 02/15/17 0000 Signed Impressions: Service Date/Time: Wednesday, February 15, 2017 01:08 - CONCLUSION: Pulmonary vascular congestion with interstitial prominence likely early failure. Khang Amos MD Objective Remarks GENERAL: This is a well-nourished, well-developed patient, in no apparent distress. CARDIOVASCULAR: Normal rate and regular rhythm without murmurs RESPIRATORY: decreased breath sounds. Some faint crackles at the bases no wheezing GASTROINTESTINAL: Abdomen soft, non-tender MUSCULOSKELETAL: Extremities with trace edema. NEURO: Alert & Oriented x4 to person, place, time, situation. Moves all ext x4 A/P Problem List: (1) COPD (chronic obstructive pulmonary disease) ICD Code: J44.9 Status: Chronic (2) Hypoxia ICD Code: R09.02 Status: Acute (3) CHF (congestive heart failure) ICD Code: I50.9 Status: Chronic (4) HTN (hypertension) ICD Code: I10 Status: Acute (5) Tobacco abuse ICD Code: Z72.0 Status: Acute (6) Alcohol abuse ICD Code: F10.10 Status: Acute Assessment and Plan 57-year-old female admitted with acute on chronic respiratory failure secondary to COPD and CHF exacerbation. COPD: Chronic Respiratory Failure w/ Acute Exacerbation, recent admit for the same 01/28-02/03/17. Patient is noncompliant and continues to smoke. Status post BiPAP on arrival. s/p rocephin and on po azithro for possible atypical PNA. on Solu-Medrol IV to q12hrs, continue Symbicort, Duoneb q4h and q2h prn, Mucinex. Patient has already been counseled on the need to be compliant and to stop using tobacco. CHF: Acute on Chronic. Systolic. Echo 01/29/17 w/ EF 25-30%. BNP 220-->350--> 470. CXR w/ interstitial edema, S/p Lasix IV in ER and additional doses for the past 2 nights except for last night. on Lasix to 40mg iv bid. give another 20mg IV x 1 now. Continue Lisinopril. on low-dose Coreg. card following. fluid restriction to 1500ml/d. I had a long discussion w patient today and stressed the importance of a low salt, fluid restriction diet. I tried my best to explain to her the physiology of CHF. I also explained the importance of being compliant w her meds as an outpatient. pt voices her understanding. HTN: Controlled. Continue home medications. Blood in the stool: Likely secondary to hemorrhoids. Patient has a known history of this. on scheduled bowel regimen to prevent constipation. H&H stable. Outpatient follow-up with GI recommended. Alcohol Abuse: CIWA, Seizure Precautions, MVT/Thiamine/Folate replacement. Tobacco Abuse: Pt counseled to quit smoking. Nicotine patch ordered. DVT Prophylaxis: SCD/teds. Discharge Planning continue to diurese. cards and pulm consults. anticipate d/c in the next 1-2 days time spent at bedside, counseling, reviewing chart, and coordination of care > 35mins Becca Burdick MD Feb 16, 2017 11:26
--- NOTE | 2017-02-16 13:36 | PD.CARD.PN ---
Subjective Subjective Remarks Atypical left sided CP, mild SOB w exertion Objective Medications Current Medications Medications (Trade) Dose Ordered Sig/Justyna Route Start Time Stop Time Status Last Admin (NS Flush) 2 ml UNSCH PRN IV FLUSH 02/12/17 20:30 02/14/17 14:27 (NS Flush) 2 ml BID IV FLUSH 02/12/17 21:00 02/16/17 09:41 (Zofran Inj) 4 mg Q6H PRN IVP 02/12/17 20:30 (Tylenol) 650 mg Q6H PRN PO 02/12/17 20:30 ([place] 5-325 Mg) 1 tab Q4H PRN PO 02/12/17 20:30 (Morphine Inj) 2 mg Q3H PRN IV 02/12/17 20:30 (Mucinex Er) 600 mg BID PO 02/12/17 21:00 02/16/17 09:34 (Xanax) 0.5 mg BID PRN PO 02/12/17 20:30 02/14/17 20:23 (Ecotrin Ec) 81 mg DAILY PO 02/13/17 09:00 02/16/17 09:34 (Lipitor) 20 mg DAILY PO 02/13/17 09:00 02/16/17 09:34 (Symbicort 160-4.5 Inh) 2 puff Q12HR INH 02/12/17 21:00 02/16/17 09:41 (Folate) 1 mg DAILY PO 02/13/17 09:00 02/18/17 08:59 02/16/17 09:35 (Vitamin B1) 100 mg DAILY PO 02/13/17 09:00 02/16/17 09:34 (Theragran M Tab) 1 tab DAILY PO 02/13/17 09:00 02/18/17 08:59 02/16/17 09:34 (Romazicon Inj) 0.2 mg Q1M PRN IV PUSH 02/12/17 21:15 (Ativan) 1 mg Q4H PRN PO 02/12/17 21:15 (Ativan Inj) 1 mg Q4H PRN IV PUSH 02/12/17 21:15 (Ativan) 2 mg Q2H PRN PO 02/12/17 21:15 (Ativan Inj) 2 mg Q2H PRN IV PUSH 02/12/17 21:15 (Ativan Inj) 2 mg Q1H PRN IV PUSH 02/12/17 21:15 (Ativan Inj) 2 mg Q15M PRN IV PUSH 02/12/17 21:15 (Haldol Inj) 2 mg Q15M PRN IM 02/12/17 21:15 (Vasotec) 5 mg DAILY PO 02/13/17 09:00 02/16/17 09:35 (D50w (Vial) Inj) 50 ml UNSCH PRN IV 02/13/17 11:45 (Glucagon Inj) 1 mg UNSCH PRN OTHER 02/13/17 11:45 (Coreg) 3.125 mg Q12HR PO 02/13/17 12:15 02/16/17 09:34 (Habitrol 14 Mg Patch.24 Hr) 1 patch DAILY T-DERMAL 02/13/17 12:30 02/16/17 09:35 Miscellaneous Information 1 DAILY T-DERMAL 02/14/17 09:00 02/16/17 09:00 (Sari-Colace) 1 tab BID PO 02/13/17 12:30 02/16/17 09:34 (Milk Of Magnesia Liq) 30 ml Q12H PRN PO 02/13/17 12:15 02/13/17 12:48 (Senokot) 17.2 mg Q12H PRN PO 02/13/17 12:15 (Dulcolax Supp) 10 mg DAILY PRN RECTAL 02/13/17 12:15 (Lactulose Liq) 30 ml DAILY PRN PO 02/13/17 12:15 (Zithromax) 500 mg Q24H PO 02/15/17 21:00 02/15/17 21:53 (Lasix Inj) 40 mg BID@,18 IV PUSH 02/15/17 18:00 02/16/17 09:34 (SoluMEDROL INJ) 40 mg Q12HR IV PUSH 02/15/17 21:00 02/16/17 09:34 Vital Signs / I&O Vital Signs Date Time Temp Pulse Resp B/P Pulse Ox O2 Delivery O2 Flow Rate FiO2 02/16/17 13:00 90 02/16/17 12:00 83 02/16/17 11:30 97.5 79 18 115/78 98 02/16/17 11:30 98 Nasal Cannula 2.00 02/16/17 11:00 80 02/16/17 10:00 82 02/16/17 09:30 95 Nasal Cannula 2.00 02/16/17 09:30 97.9 91 18 132/86 95 02/16/17 09:00 84 02/16/17 08:00 78 02/16/17 07:46 95 21 02/16/17 07:45 100 Room Air Bi-Pap 02/16/17 07:00 80 02/16/17 06:18 74 02/16/17 05:22 75 02/16/17 04:15 96 30 02/16/17 04:10 76 02/16/17 03:15 97.9 71 15 94/55 100 02/16/17 03:15 100 Bi-Pap 30 02/16/17 03:15 73 02/16/17 02:28 74 02/16/17 01:07 90 02/16/17 01:02 98 30 02/16/17 00:13 84 02/15/17 23:58 97.6 90 18 127/81 98 02/15/17 23:58 98 Room Air 02/15/17 23:58 89 02/15/17 22:00 82 02/15/17 21:00 86 02/15/17 20:15 85 02/15/17 19:25 97 Room Air 02/15/17 19:25 97.4 81 18 120/73 97 02/15/17 19:25 90 02/15/17 18:03 94 02/15/17 17:20 84 02/15/17 16:40 78 02/15/17 16:40 99 Nasal Cannula 1.00 02/15/17 15:14 97 Nasal Cannula 2.00 02/15/17 15:00 81 02/15/17 15:00 97.3 83 18 109/63 99 02/15/17 14:08 88 I/O 02/15/17 02/15/17 02/15/17 02/16/17 02/16/17 02/16/17 07:00 15:00 23:00 07:00 15:00 23:00 Intake Total 933 ml 600 ml 720 ml Output Total 250 ml 1800 ml 1200 ml Balance 683 ml -1200 ml -480 ml Intake Oral 713 ml 600 ml 720 ml IV Total 220 ml Output Urine Total 250 ml 1800 ml 1200 ml # Bowel Movements 2 Physical Exam GENERAL: In NAD SKIN: Warm and dry. HEAD: Normocephalic. EYES: No scleral icterus. No injection or drainage. NECK: Supple, trachea midline. No JVD or lymphadenopathy. CARDIOVASCULAR: Regular rate and rhythm without murmurs, gallops, or rubs. RESPIRATORY: Breath sounds decreased bilaterally. No accessory muscle use. GASTROINTESTINAL: Abdomen soft, non-tender, nondistended. MUSCULOSKELETAL: No cyanosis, mild edema. Laboratory Laboratory Tests Test 02/16/17 06:00 Sodium Level 143 MEQ/L Potassium Level 3.8 MEQ/L Chloride Level 108 MEQ/L Carbon Dioxide Level 26.5 MEQ/L Anion Gap 9 MEQ/L Blood Urea Nitrogen 37 MG/DL Creatinine 0.85 MG/DL Estimat Glomerular Filtration 69 ML/MIN Rate Random Glucose 153 MG/DL Calcium Level 8.4 MG/DL Imaging Last Impressions Chest X-Ray 02/15/17 0000 Signed Impressions: Service Date/Time: Wednesday, February 15, 2017 01:08 - CONCLUSION: Pulmonary vascular congestion with interstitial prominence likely early failure. Khang Amos MD Assessment and Plan Problem List: (1) COPD exacerbation (2) CHF exacerbation (3) Ischemic cardiomyopathy (4) Cardiac defibrillator in situ (5) Chronic alcohol abuse (6) CAD S/P percutaneous coronary angioplasty (7) HTN (hypertension) (8) Tobacco abuse Assessment and Plan Continue tx for CHF exacerbation including IV diuresis. Continue beta tomas and NEIDA-I. Continue tx for COPD. CP is atypical, likely of noncardiac origin. F/ u w Dr. Mcghee after discharge. Bladimir Alarcon MD Feb 16, 2017 13:36
[2017-02-16] MEDS: AZITHROMYCIN 250 MG TAB PO SCH (21:05)
[2017-02-17] VITALS (18 sets, daily range): BP systolic 111–130; BP diastolic 70–89; PULSE 74–94; RESP 16–18; TEMP 97.6–97.9; O2SAT 96–100
[2017-02-17] MEDS: INSULIN ASPART SUPPLEMENTAL SCALE SQ SCH ×3 (07:00→16:00)
[2017-02-17] MEDS: RESP: ALBUTEROL 2.5 MG/IPRATROPIUM 0.5 MG NEB (PRN) NEB ×2 (08:06→13:40)
[2017-02-17] MEDS: ATORVASTATIN 20 MG TAB PO SCH (08:12)
[2017-02-17] MEDS: ENALAPRIL MALEATE 5 MG TAB PO SCH (08:12)
[2017-02-17] MEDS: FOLIC ACID 1 MG TAB PO SCH (08:12)
[2017-02-17] MEDS: guaiFENesin E.R. 600 MG TAB PO SCH (08:12)
[2017-02-17] MEDS: BUDESONIDE-FORMOTEROL 160/4.5 MCG INHALER INH SCH (08:12)
[2017-02-17] MEDS: SODIUM CHLORIDE 0.9% FLUSH 10 ML FLUSH IV FLUSH SCH (08:13)
[2017-02-17] MEDS: CARVEDILOL 3.125 MG TAB PO SCH (08:13)
[2017-02-17] MEDS: FUROSEMIDE 40 MG/4 ML VIAL IV PUSH SCH (08:13)
[2017-02-17] MEDS: ASPIRIN EC 81 MG TABEC PO SCH (08:13)
[2017-02-17] MEDS: DOCUSATE SODIUM 50 MG/SENNA 8.6 MG TAB PO SCH (08:16)
[2017-02-17] MEDS: methylPREDNISolone SOD SUCC 40 MG/1 ML VIAL IV PUSH SCH (08:16)
[2017-02-17] MEDS: THIAMINE HCL 100 MG TAB PO SCH (08:16)
[2017-02-17] MEDS: MULTIVITAMINS/MINERALS THERAPEUTIC TAB PO SCH (08:16)
[2017-02-17] MEDS: NICOTINE 14 MG/24 HR PATCH T-DERMAL SCH (08:18)
[2017-02-17] MEDS: REMOVE OLD NICOTINE PATCH T-DERMAL SCH (08:18)
[2017-02-17 08:23] LABS: BICARBONATE 26.8 MEQ/L (21.0-32.0); POTASSIUM 3.7 MEQ/L (3.5-5.1)
--- NOTE | 2017-02-17 12:33 | HHI.PR ---
Subjective Remarks Pt feeling a lot better. SOB improved. has some minimal chest pressure on and off w movement but currently has none. no palpitations. no nausea or vomiting Objective Vitals Vital Signs Date Time Temp Pulse Resp B/P Pulse Ox O2 Delivery O2 Flow Rate FiO2 02/17/17 11:25 86 02/17/17 11:25 97.7 85 18 130/81 97 02/17/17 11:25 97 Room Air 02/17/17 10:00 77 02/17/17 09:16 89 02/17/17 08:15 97.9 87 18 130/89 96 02/17/17 08:15 96 Room Air 02/17/17 08:15 80 02/17/17 08:09 99 21 02/17/17 06:00 88 02/17/17 05:00 78 02/17/17 04:30 97 30 02/17/17 04:00 78 02/17/17 03:00 97.6 84 16 111/70 100 02/17/17 03:00 75 02/17/17 03:00 100 Bi-Pap 02/17/17 02:00 74 02/17/17 01:00 82 02/17/17 00:27 98 30 02/17/17 00:00 80 02/16/17 23:00 80 02/16/17 23:00 99 Bi-Pap 02/16/17 23:00 97.6 83 18 112/73 96 02/16/17 22:00 78 02/16/17 21:00 84 02/16/17 20:00 82 02/16/17 19:00 95 Room Air 02/16/17 19:00 97.8 83 18 119/72 95 02/16/17 19:00 80 02/16/17 18:00 75 02/16/17 17:00 80 02/16/17 16:30 97 Room Air 02/16/17 16:30 98.0 84 18 123/83 97 02/16/17 16:00 82 02/16/17 15:00 85 02/16/17 14:00 88 02/16/17 13:00 90 I/O 02/16/17 02/16/17 02/16/17 02/17/17 02/17/17 02/17/17 07:00 15:00 23:00 07:00 15:00 23:00 Intake Total 720 ml 960 ml 480 ml Output Total 1200 ml 1550 ml 1250 ml Balance -480 ml -590 ml -770 ml Intake Oral 720 ml 960 ml 480 ml IV Total 0 ml Output Urine Total 1200 ml 1550 ml 1250 ml # Bowel Movements 1 Result Diagram: 02/15/17 0603 02/17/17 0720 Imaging Last Impressions Chest X-Ray 02/15/17 0000 Signed Impressions: Service Date/Time: Wednesday, February 15, 2017 01:08 - CONCLUSION: Pulmonary vascular congestion with interstitial prominence likely early failure. Khang Amos MD Objective Remarks GENERAL: This is a well-nourished, well-developed patient, in no apparent distress. CARDIOVASCULAR: Normal rate and regular rhythm without murmurs RESPIRATORY: decreased breath sounds. CTAB today GASTROINTESTINAL: Abdomen soft, non-tender MUSCULOSKELETAL: Extremities with trace edema. NEURO: Alert & Oriented x4 to person, place, time, situation. Moves all ext x4 A/P Problem List: (1) COPD (chronic obstructive pulmonary disease) ICD Code: J44.9 Status: Chronic (2) Hypoxia ICD Code: R09.02 Status: Acute (3) CHF (congestive heart failure) ICD Code: I50.9 Status: Chronic (4) HTN (hypertension) ICD Code: I10 Status: Acute (5) Tobacco abuse ICD Code: Z72.0 Status: Acute (6) Alcohol abuse ICD Code: F10.10 Status: Acute Assessment and Plan 57-year-old female admitted with acute on chronic respiratory failure secondary to COPD and CHF exacerbation. COPD: Chronic Respiratory Failure w/ Acute Exacerbation, recent admit for the same 01/28-02/03/17. Patient is noncompliant and continues to smoke. Status post BiPAP on arrival. s/p rocephin and on po azithro for possible atypical PNA. switch to po azithro only and will switch her po prednisone in AM. on Solu -Medrol IV now, continue Symbicort, Duoneb q4h and q2h prn, Mucinex. Patient has already been counseled on the need to be compliant and to stop using tobacco. CHF: Acute on Chronic. Systolic. Echo 01/29/17 w/ EF 25-30%. BNP 220-->350--> 470. CXR w/ interstitial edema, S/p Lasix IV in ER and additional doses for the past 2 nights except for last night. on Lasix to 40mg iv bid. s/p another 20mg IV x 1 yesterday. Continue Lisinopril. on low-dose Coreg. card following. fluid restriction to 1500ml/d. I had a long discussion w patient today and stressed the importance of a low salt, fluid restriction diet. I tried my best to explain to her the physiology of CHF. I also explained the importance of being compliant w her meds as an outpatient. pt voices her understanding. transition to po lasix, ok per Dr Alarcon HTN: Controlled. Continue home medications. Blood in the stool: Likely secondary to hemorrhoids. Patient has a known history of this. on scheduled bowel regimen to prevent constipation. H&H stable. Outpatient follow-up with GI recommended. Alcohol Abuse: CIWA, Seizure Precautions, MVT/Thiamine/Folate replacement. Tobacco Abuse: Pt counseled to quit smoking. Nicotine patch ordered. DVT Prophylaxis: SCD/teds. Discharge Planning continue to [facility]. cards following. Pt states she has an appt w Dr Mcghee next and one w Dr. Grubbs on monday anticipate d/c later today or tomorrow Becca Burdick MD Feb 17, 2017 12:33 Becca Burdick MD Feb 17, 2017 12:33
--- NOTE | 2017-02-17 15:32 | PD.CARD.PN ---
Subjective Subjective Remarks No angina or CHF symptoms, feels better Objective Medications Current Medications Medications (Trade) Dose Ordered Sig/Justyna Route Start Time Stop Time Status Last Admin (NS Flush) 2 ml UNSCH PRN IV FLUSH 02/12/17 20:30 02/14/17 14:27 (NS Flush) 2 ml BID IV FLUSH 02/12/17 21:00 02/17/17 08:13 (Zofran Inj) 4 mg Q6H PRN IVP 02/12/17 20:30 (Tylenol) 650 mg Q6H PRN PO 02/12/17 20:30 ([place] 5-325 Mg) 1 tab Q4H PRN PO 02/12/17 20:30 (Morphine Inj) 2 mg Q3H PRN IV 02/12/17 20:30 (Mucinex Er) 600 mg BID PO 02/12/17 21:00 02/17/17 08:12 (Xanax) 0.5 mg BID PRN PO 02/12/17 20:30 02/14/17 20:23 (Ecotrin Ec) 81 mg DAILY PO 02/13/17 09:00 02/17/17 08:13 (Lipitor) 20 mg DAILY PO 02/13/17 09:00 02/17/17 08:12 (Symbicort 160-4.5 Inh) 2 puff Q12HR INH 02/12/17 21:00 02/17/17 08:12 (Folate) 1 mg DAILY PO 02/13/17 09:00 02/18/17 08:59 02/17/17 08:12 (Vitamin B1) 100 mg DAILY PO 02/13/17 09:00 02/17/17 08:16 (Theragran M Tab) 1 tab DAILY PO 02/13/17 09:00 02/18/17 08:59 02/17/17 08:16 (Romazicon Inj) 0.2 mg Q1M PRN IV PUSH 02/12/17 21:15 (Ativan) 1 mg Q4H PRN PO 02/12/17 21:15 (Ativan Inj) 1 mg Q4H PRN IV PUSH 02/12/17 21:15 (Ativan) 2 mg Q2H PRN PO 02/12/17 21:15 (Ativan Inj) 2 mg Q2H PRN IV PUSH 02/12/17 21:15 (Ativan Inj) 2 mg Q1H PRN IV PUSH 02/12/17 21:15 (Ativan Inj) 2 mg Q15M PRN IV PUSH 02/12/17 21:15 (Haldol Inj) 2 mg Q15M PRN IM 02/12/17 21:15 (Vasotec) 5 mg DAILY PO 02/13/17 09:00 02/17/17 08:12 (D50w (Vial) Inj) 50 ml UNSCH PRN IV 02/13/17 11:45 (Glucagon Inj) 1 mg UNSCH PRN OTHER 02/13/17 11:45 (Coreg) 3.125 mg Q12HR PO 02/13/17 12:15 02/17/17 08:13 (Habitrol 14 Mg Patch.24 Hr) 1 patch DAILY T-DERMAL 02/13/17 12:30 02/17/17 08:18 Miscellaneous Information 1 DAILY T-DERMAL 02/14/17 09:00 02/17/17 08:18 (Sari-Colace) 1 tab BID PO 02/13/17 12:30 02/17/17 08:16 (Milk Of Magnesia Liq) 30 ml Q12H PRN PO 02/13/17 12:15 02/13/17 12:48 (Senokot) 17.2 mg Q12H PRN PO 02/13/17 12:15 (Dulcolax Supp) 10 mg DAILY PRN RECTAL 02/13/17 12:15 (Lactulose Liq) 30 ml DAILY PRN PO 02/13/17 12:15 (Zithromax) 500 mg Q24H PO 02/15/17 21:00 02/16/17 21:05 (SoluMEDROL INJ) 40 mg Q12HR IV PUSH 02/15/17 21:00 02/17/17 08:16 (Lasix) 40 mg BID@,18 PO 02/17/17 18:00 Vital Signs / I&O Vital Signs Date Time Temp Pulse Resp B/P Pulse Ox O2 Delivery O2 Flow Rate FiO2 02/17/17 14:06 94 02/17/17 13:34 88 02/17/17 12:48 77 02/17/17 11:25 86 02/17/17 11:25 97.7 85 18 130/81 97 02/17/17 11:25 97 Room Air 02/17/17 10:00 77 02/17/17 09:16 89 02/17/17 08:15 97.9 87 18 130/89 96 02/17/17 08:15 96 Room Air 02/17/17 08:15 80 02/17/17 08:09 99 21 02/17/17 06:00 88 02/17/17 05:00 78 02/17/17 04:30 97 30 02/17/17 04:00 78 02/17/17 03:00 97.6 84 16 111/70 100 02/17/17 03:00 75 02/17/17 03:00 100 Bi-Pap 02/17/17 02:00 74 02/17/17 01:00 82 02/17/17 00:27 98 30 02/17/17 00:00 80 02/16/17 23:00 80 02/16/17 23:00 99 Bi-Pap 02/16/17 23:00 97.6 83 18 112/73 96 02/16/17 22:00 78 02/16/17 21:00 84 02/16/17 20:00 82 02/16/17 19:00 95 Room Air 02/16/17 19:00 97.8 83 18 119/72 95 02/16/17 19:00 80 02/16/17 18:00 75 02/16/17 17:00 80 02/16/17 16:30 97 Room Air 02/16/17 16:30 98.0 84 18 123/83 97 02/16/17 16:00 82 I/O 02/16/17 02/16/17 02/16/17 02/17/17 02/17/17 02/17/17 07:00 15:00 23:00 07:00 15:00 23:00 Intake Total 720 ml 960 ml 480 ml Output Total 1200 ml 1550 ml 1250 ml Balance -480 ml -590 ml -770 ml Intake Oral 720 ml 960 ml 480 ml IV Total 0 ml Output Urine Total 1200 ml 1550 ml 1250 ml # Bowel Movements 1 Physical Exam GENERAL: In NAD SKIN: Warm and dry. HEAD: Normocephalic. EYES: No scleral icterus. No injection or drainage. NECK: Supple, trachea midline. No JVD or lymphadenopathy. CARDIOVASCULAR: Regular rate and rhythm without murmurs, gallops, or rubs. RESPIRATORY: Breath sounds decreased bilaterally. No accessory muscle use. GASTROINTESTINAL: Abdomen soft, non-tender, nondistended. MUSCULOSKELETAL: No cyanosis, mild edema. Laboratory Laboratory Tests Test 02/17/17 07:20 Sodium Level 142 MEQ/L Potassium Level 3.7 MEQ/L Chloride Level 106 MEQ/L Carbon Dioxide Level 26.8 MEQ/L Anion Gap 9 MEQ/L Blood Urea Nitrogen 35 MG/DL Creatinine 0.76 MG/DL Estimat Glomerular Filtration 78 ML/MIN Rate Random Glucose 131 MG/DL Calcium Level 8.5 MG/DL Imaging Last Impressions Chest X-Ray 02/15/17 0000 Signed Impressions: Service Date/Time: Wednesday, February 15, 2017 01:08 - CONCLUSION: Pulmonary vascular congestion with interstitial prominence likely early failure. Khang Amos MD Assessment and Plan Problem List: (1) COPD exacerbation (2) CHF exacerbation (3) Ischemic cardiomyopathy (4) Cardiac defibrillator in situ (5) Chronic alcohol abuse (6) CAD S/P percutaneous coronary angioplasty (7) HTN (hypertension) (8) Tobacco abuse Assessment and Plan Continue tx for CHF exacerbation. Switch to PO diuretics. Continue beta tomas and NEIDA-I. Continue tx for COPD. CP is atypical, likely of noncardiac origin. DC home today. F/u w Dr. Mcghee, her primary front end driver, after discharge. Bladimir Alarcon MD Feb 17, 2017 15:32
[2017-02-17] MEDS ORDERED: OXYGEN NAS.CANULA (15:37)
[2017-02-17] MEDS ORDERED: FURO40TA PO (15:39)
[2017-02-17] MEDS ORDERED: ENAL5TAB PO (15:39)
[2017-02-17] MEDS ORDERED: PRED20 PO (15:39)
[2017-02-17] MEDS ORDERED: CARV3.125 PO (15:39)
[2017-02-17] MEDS ORDERED: POTA1TAB4 PO (15:39)
[2017-02-17] MEDS ORDERED: AZIT250T3 PO (15:39)
--- NOTE | 2017-02-17 15:40 | HHI.DS ---
Discharge Summary Admission Date Feb 12, 2017 at 20:25 Discharge Date: Feb 17, 2017 Admitting Diagnosis exacerbation COPD. Acute exacerbation CHF. (1) COPD (chronic obstructive pulmonary disease) ICD Code: J44.9 Diagnosis: Principal (2) Hypoxia ICD Code: R09.02 Diagnosis: Principal (3) CHF (congestive heart failure) ICD Code: I50.9 Diagnosis: Principal (4) HTN (hypertension) ICD Code: I10 Diagnosis: Principal (5) Tobacco abuse ICD Code: Z72.0 Diagnosis: Secondary (6) Alcohol abuse ICD Code: F10.10 Diagnosis: Secondary Procedures none Brief History - From Admission This is a 57-year-old female with a PMH of HTN, CAD, COPD, CVA, CHF (Echo w/ EF 40-45%), Alcohol Abuse and Tobacco Abuse who was brought to the ER by EMS secondary to SOB. O2 sat 80% upon EMS arrival, placed on CPAP, transitioned to BIPAP upon arrival to ER. BP 139/76, HR 113, O2 sat 100% on BiPAP, Afebrile. Recent admit 01/28-02/03/17 for COPD/PNA also requiring BIPAP, s /p eval by Pulmonology. Pt continues to smoke. CBC at baseline. Chemistry essentially unremarkable. BNP 220. CXR with cardiomegaly, mild interstitial edema. S/p Lasix 40mg IV x1 in ER in addition to Solu-Medrol/DuoNeb. Currently improved. CBC/BMP: 02/15/17 0603 02/17/17 0720 Significant Findings Laboratory Tests Test 02/15/17 02/15/17 02/16/17 02/17/17 06:03 06:08 06:00 07:20 White Blood Count 11.5 TH/MM3 (4.0-11.0) Red Blood Count 3.45 MIL/MM3 (4.00-5.30) Hemoglobin 11.1 GM/DL (11.6-15.3) Hematocrit 34.1 % (35.0-46.0) Neutrophils (%) (Auto) 86.9 % (16.0-70.0) Neutrophils # (Auto) 10.0 TH/MM3 (1.8-7.7) Chloride Level 108 MEQ/L 108 MEQ/L (98-107) (98-107) Blood Urea Nitrogen 35 MG/DL (7-18) 37 MG/DL (7-18) 35 MG/DL (7-18) Estimat Glomerular Filtration 77 ML/MIN (>89) 69 ML/MIN (>89) 78 ML/MIN (>89) Rate Random Glucose 144 MG/DL 153 MG/DL 131 MG/DL (74-106) (74-106) (74-106) Calcium Level 8.0 MG/DL 8.4 MG/DL (8.5-10.1) (8.5-10.1) B-Type Natriuretic Peptide 470 PG/ML (0-100) Imaging Last Impressions Chest X-Ray 02/15/17 0000 Signed Impressions: Service Date/Time: Wednesday, February 15, 2017 01:08 - CONCLUSION: Pulmonary vascular congestion with interstitial prominence likely early failure. Khang Amos MD PE at Discharge GENERAL: This is a well-nourished, well-developed patient, in no apparent distress. CARDIOVASCULAR: Normal rate and regular rhythm without murmurs RESPIRATORY: decreased breath sounds. CTAB today GASTROINTESTINAL: Abdomen soft, non-tender MUSCULOSKELETAL: Extremities with trace edema. NEURO: Alert & Oriented x4 to person, place, time, situation. Moves all ext x4 Hospital Course 57-year-old female admitted with acute on chronic respiratory failure secondary to COPD and CHF exacerbation. COPD: Chronic Respiratory Failure w/ Acute Exacerbation, recent admit for the same 01/28-02/03/17. Patient is noncompliant and continues to smoke. Status post BiPAP on arrival. s/p rocephin and on po azithro for possible atypical PNA. switch to po azithro for a total of 5 days. s/p IV solu-medrol and pt was sent home on a prednisone taper, continue Symbicort, Duoneb q4h and q2h prn, Mucinex. Patient was counseled on the need to be compliant and to stop using tobacco. CHF: Acute on Chronic. Systolic. Echo 01/29/17 w/ EF 25-30%. BNP 220-->350--> 470. CXR w/ interstitial edema, S/p Lasix IV in ER and additional doses. received IV lasix and was transitioned to po lasix bid. Continue Lisinopril and Coreg. fluid restriction to 1500ml/d. I had a long discussion w patient today and stressed the importance of a low salt, fluid restriction diet. I tried my best to explain to her the physiology of CHF. I also explained the importance of being compliant w her meds as an outpatient. pt voices her understanding. pt was cleared by cardiology for discharge. pt will require home oxygen only w exertion. Pt insists on going home today and oxygen will be delivered in AM (with exertion oxygen did go down to 88% however on RA it was in the mid 90's). Pt states that she will not exert herself, insisted on going home today and is comfortable receiving the oxygen in AM. I did confirm w CM that oxygen will arrive tomorrow. Pt has appts set up w both her tank inspector and pharmaceutical plant operator for next week. She was encouraged to keep these appointments Pt Condition on Discharge: Stable Discharge Disposition: Discharge Home Discharge Time: > 30 minutes Discharge Instructions DIET: Follow Instructions for: Heart Healthy Diet Activities you can perform: Regular-No Restrictions Follow up Referrals: Cardiology - 1 Week Pulmonology - 1 Week New Medications: Oxygen (O2) (Oxygen (O2)) Inha 2 LITER SOM.CANULA CONTINUOUS Oxygen Concentrator Portable Gaseous 2 L/min via Nasal Canula Continuous For 99 months Prevent Hypoxemia #1 CYLINDER Prednisone (Prednisone) 20 Mg Tab 20 MG PO DIRECTED 40 MG twice a day x 3 days, then 20 MG daily x 3 days, then 10 MG daily x 3 days Inflammation #11 Ref 0 TAB Azithromycin (Azithromycin) 250 Mg Tab 500 MG PO Q24H Days 3 TAB Carvedilol (Coreg) 3.125 Mg Tab 3.125 MG PO Q12HR Days 30 TAB Continued Medications: Albuterol 8.5 GM Inh (Proair Hfa 8.5 GM Inh) 90 Mcg/Act Aer 2 PUFF INH Q4-6H 108 mcg/actuation PRN SHORTNESS OF BREATH #1 Ref 0 INHALER Alprazolam (Alprazolam) 0.5 Mg Tab 0.5 MG PO BID PRN ANXIETY Ref [address] (Aspirin EC) 81 Mg Tabdr 81 MG PO DAILY Ref 0 TAB Atorvastatin (Atorvastatin) 20 Mg Tab 20 MG PO DAILY high cholesterol #30 Ref 0 TAB Budesonide-Formoterol Inh (Symbicort Inh) 160-4.5 Mcg/Act Aero 2 PUFF INH Q12HR COPD #1 Ref 0 INHALER Enalapril (Enalapril) 5 Mg Tab 5 MG PO DAILY #30 Ref 0 TAB (This prescription has been renewed) Furosemide (Furosemide) 40 Mg Tab 40 MG PO BID@,18 congestive heart failure #60 Ref 0 TAB (This prescription has been renewed) Potassium Chloride ER (K-Tab) 20 Meq Tab 20 MEQ PO DAILY Electrolyte Replacement #30 Ref 0 TAB (This prescription has been renewed) Discontinued Medications: Metoprolol Tartrate (Metoprolol Tartrate) 25 Mg Tab 12.5 MG PO BID #60 Ref 0 TAB Becca Burdick MD Feb 17, 2017 15:40
[2017-02-17] MEDS ORDERED: FUROSEMIDE 40 MG TAB PO SCH (18:00)
== END 2017-02-17 16:38 | disposition home or self-care (01) | DRG 291 ==
LOC: NEPC 18:47 → NEDA 20:25 → HCIN 22:25
PROVIDERS: ADMIT Hospitalist; ATTEND Hospitalist
PROC: 5A09557 Assistance with Respiratory Ventilation, Greater than 96 Consecutive Hours, Continuous Positive Airway Pressure (ICD-10-PCS; principal; 2017-02-12)
DX: I50.23 Acute on chronic systolic (congestive) heart failure (principal); J96.21 Acute and chronic respiratory failure with hypoxia; J18.9 Pneumonia, unspecified organism; J44.1 Chronic obstructive pulmonary disease with (acute) exacerbation; K92.1 Melena; I10 Essential (primary) hypertension; I25.5 Ischemic cardiomyopathy; F10.10 Alcohol abuse, uncomplicated; Z95.5 Presence of coronary angioplasty implant and graft; I25.10 Atherosclerotic heart disease of native coronary artery without angina pectoris; Z95.810 Presence of automatic (implantable) cardiac defibrillator; Z86.73 Personal history of transient ischemic attack (TIA), and cerebral infarction without residual deficits; Z91.19 Patient's noncompliance with other medical treatment and regimen; K64.9 Unspecified hemorrhoids
CPT/HCPCS: 36600; 71010; 80048; 80053; 82805; 82948; 83880; 85025; 85027; 85610; 85730; 87040; 87804; 93005; 94002; 94003; 94150; 94620; 94640; 94664; 96374; J0456; J0692; J0696; J1815; J1940; J2920; J7050; J7644

== ENCOUNTER → 2017-03-13 | Outpatient (CLI) | payer OTHER ==
[~2017-03-13] MED LIST changes: +AZIT250T3 PO; +CARV3.125 PO; -FOLI1TAB4 PO; -METO25TA3 PO; +OXYGEN NAS.CANULA; +PRED20 PO; -THIA100T PO
== END ==
LOC: HRSP 09:10
PROVIDERS: ATTEND Internal Medicine Sleep Medicine
DX: R06.09 Other forms of dyspnea (principal)
CPT/HCPCS: 94060; 94726; 94729